=== PATIENT | female | born 1945 | race Caucasian/White ===

== ENCOUNTER 2018-05-12 08:56 | Emergency (ER) | payer MEDICARE, OTHER, SELFPAY ==
[2018-05-12 08:56] VITALS: BP 154/120; PULSE 92; RESP 24; TEMP 36.6; O2SAT 97; BMI 34.1
--- NOTE | 2018-05-12 09:05 | NURSING ---
NO LW OR POA
--- NOTE | 2018-05-12 09:15 | CT_ITS ---
STUDY: CT ABDOMEN AND PELVIS WITHOUT CONTRAST REASON FOR EXAM: Female, 72 years old. Constipation. RADIATION DOSAGE (If Supplied By Facility): CTDIvol = ( 21.18 ) mGy, DLP = ( 909.84 ) mGycm TECHNIQUE: Transaxial images were obtained from the dome of the diaphragm to the symphysis pubis without oral contrast, and without intravenous contrast. Sagittal and coronal images were reconstructed. Individualized dose optimization techniques were used for this CT. COMPARISON: None. FINDINGS: There are chronic interstitial fibrotic changes of the lung bases. The visualized portions of the heart are within normal limits. Normal liver. Normal gallbladder and extrahepatic biliary system. Normal spleen. Normal pancreas. Normal bilateral adrenal glands. There are cysts in the kidneys with lobulated contour. There is no hydronephrosis.. Normal visualized stomach. Normal small intestine. Normal colon. There is moderately abundant stool. There is non-visualization of the appendix. There is diffuse atherosclerotic calcification of the abdominal aorta, without a demonstrated aneurysm. Normal inferior vena cava. Normal retroperitoneum. Normal urinary bladder. There is absence of the uterus consistent with a prior hysterectomy. There is no free fluid in the abdomen or pelvis. There is a moderate umbilical hernia containing fat with induration and edema, series 2 images 100/153 through 106/153. Degenerative change of the spine. CT/Abdomen/Pelvis without Cont IMPRESSION: Moderately abundant stool. No obstruction. Periumbilical hernia with edema. Electronically Signed: Colin Jon MD at 10:14 EDT , Service support ,
[2018-05-12] MEDS: LORazepam 1 MG Tablet PO (09:37)
--- NOTE | 2018-05-12 09:41 | ED.DCSUM_ITS ---
- ER Visit Summary Date of Service: 05/12/18 Chief Complaint: Abdominal pain and constipation History of Present Illness: The patient is a 72 F who states that for the past 2 weeks she has been constipated. She was getting some thin pencil like stools. She was starting some stool softeners. This was not very effective. She talked to her doctor recommended that she take some MiraLAX and she stated that today she had several small hard balls of stool. She states that she has had fecal impaction in the past but does not have that same sensation today. She denies any oncoparesis. She states she is passing gas. States she had been eating and drinking fine up until yesterday when she just felt nauseous and was not able to eat much beyond for green beans. Is a history of an appendectomy and a vaginal hysterectomy. She states her last colonoscopy was years ago. Physical Examination: Afebrile vital signs are stable Gen: Well-nourished well-developed Head: Normocephalic atraumatic Eyes: Perrl EOMI ENT: TMs clear no rhinorrhea moist mucous membranes Neck: Supple no lymphadenopathy no JVD nontender CVS: Regular rate rhythm no murmurs normal S1-S2 Respiratory: Patient is tachypneic and is wearing 3 L nasal cannula and she states her breathing is at her baseline. Clear to auscultation bilaterally chest nontender Abdomen: Soft nontender mildly distended without tympany normal bowel sounds no masses Back: Nontender Extremity: Nontender no edema Skin: Normal color no rash Neuro: alert orientated ?3 CN II-XII intact normal strength sensation reflexes gait cerebellar Psych: Normal affect normal mood Test Results: CT demonstrated moderate amount of stool. There is no obvious obstruction. Emergency Department Course and Treatment: Patient was started on magnesium citrate. She wants to start using Metamucil but is unsure of the directions. Patient to follow-up with primary care doctor return if worsening or concerns. I will also write for Zofran for nausea. Impression: 1. Constipation This note was generated with [employer] dictation software. It may contain incorrect words, spelling, and punctuation that were not noted in review of the chart prior to signing ED Disposition - Plan for ED Patient: Disposition: Home or Assisted Living Chief Complaint: Constipation Instructions: ED Constipation Prescriptions: Ondansetron [Zofran Odt] 4 mg PO Q8H PRN PRN #14 tab PRN Reason: Nausea Magnesium Citrate [Citrate Of Magnesia] 300 ml PO TID #3 bottle Referrals: Mandi Canales MD [Primary Care Provider] - 1 Week Additional Instructions: For your Metamucil start at 3 caps a day then increase up to 5 caps a day after 1 week.
[2018-05-12 10:46] VITALS: BP 148/88; PULSE 86; RESP 18; O2SAT 96
== END 2018-05-12 10:47 | disposition home or self-care (01) ==
PROVIDERS: Emergency Provider Emergency Medicine; Family Provider Internal Medicine; PCP Internal Medicine
DX: K59.00 Constipation, unspecified (principal); E66.9 Obesity, unspecified; F41.1 Generalized anxiety disorder; E78.00 Pure hypercholesterolemia, unspecified; I11.0 Hypertensive heart disease with heart failure; I50.9 Heart failure, unspecified; I73.9 Peripheral vascular disease, unspecified; J44.9 Chronic obstructive pulmonary disease, unspecified; Z68.34 Body mass index [BMI] 34.0-34.9, adult; Z87.891 Personal history of nicotine dependence; Z86.73 Personal history of transient ischemic attack (TIA), and cerebral infarction without residual deficits; Z79.82 Long term (current) use of aspirin; Z79.899 Other long term (current) drug therapy
CPT/HCPCS: 74176; 99282

== ENCOUNTER 2018-10-24 07:25 | Outpatient (RCR) | payer SELFPAY | END 2018-11-21 23:59 | LOC: PR 07:25 | PROVIDERS: Family Provider Internal Medicine; PCP Internal Medicine; Referring Provider Internal Medicine Critical Care Medicine; Visit Provider Internal Medicine Critical Care Medicine | DX: Z00.00 Encounter for general adult medical examination without abnormal findings (principal) ==

== ENCOUNTER 2019-07-01 06:22 | Outpatient (RCR) | payer SELFPAY | END 2019-07-21 23:59 | LOC: PR 06:22 | PROVIDERS: Family Provider Internal Medicine; PCP Internal Medicine; Referring Provider Internal Medicine Critical Care Medicine; Visit Provider Internal Medicine Critical Care Medicine | DX: Z00.00 Encounter for general adult medical examination without abnormal findings (principal) ==

== ENCOUNTER 2019-09-24 09:38 | Emergency (ER) | payer MEDICARE, OTHER, SELFPAY ==
[2019-09-24 09:39] VITALS: BP 199/72; PULSE 115; RESP 25; TEMP 37.2; O2SAT 92; BMI 34.5
[2019-09-24 09:58] VITALS: BP 193/52; RESP 193
--- NOTE | 2019-09-24 10:02 | CT_ITS ---
STUDY: CT CHEST WITHOUT CONTRAST REASON FOR EXAM: Female, 74 years old. Cough following swallowing of a foreign body. RADIATION DOSAGE (If Supplied By Facility): CTDIvol = ( 14.49 ) mGy, DLP = ( 601.29 ) mGycm TECHNIQUE: Transaxial imaging was performed without the administration of intravenous contrast material. Multiplanar coronal and sagittal images were reformatted. Individualized dose optimization techniques were used for this CT. COMPARISON: None. FINDINGS: Emphysematous changes. Linear calcific scarring in the right upper lobe. This extends into the medial pleural surface in the right upper lobe. Lingular scarring. There is a noncalcified pleural-based nodule in the posterior medial segment of the left lower lobe as seen on axial image 87. This measures 7.2 mm. There is no demonstrated pleural abnormality. There are calcifications of the coronary arteries. There are multiple small lymph nodes within the mediastinum, which are normal in size and morphology most compatible with reactive lymph hyperplasia. Normal hilar regions. Normal unenhanced pulmonary arteries. There is atherosclerotic calcification of the aortic arch with tortuosity and elongation of the aortic arch and descending thoracic aorta. There are multi-level degenerative changes of the thoracic spine. Left renal cyst. CT/Chest without Contrast IMPRESSION: Fibrocalcific scarring in the right upper lobe with emphysematous changes. 7.2 mm noncalcified pleural based nodule in the left lower lobe. Electronically Signed: Osvaldo Frank, at 10:55 EST , Service support ,
--- NOTE | 2019-09-24 10:04 | ED.VIS.GEN ---
History of Present Illness Chief Complaint: Foreign Body Informant: Patient Onset: Days - 3 days Current Severity: Mild Maximum Severity: Mild Narrative: Patient presents 2 days after she believes she got a pickle stuck in her throat. She states that she was chewing up a Gerkin pickle when she excellently swallowed. She feels like a large piece of it is stuck in her lower throat. She states she has been able to drink fluids and take her pills. She called her primary care office yesterday who encouraged her to follow-up with surgery. She called Dr. Martin's office and was told to come to the emergency room but did not present until this morning. She is been able to sleep without difficulty. - Past Medical History (1) Benign hypertension Status: Chronic (2) CHF (congestive heart failure) Status: Chronic (3) COPD (chronic obstructive pulmonary disease) Status: Chronic (4) Chronic respiratory failure Status: Chronic (5) Hx TIA/stroke w/o resid Status: Chronic (6) Hyperlipidemia Status: Chronic (7) Peripheral vascular disease Status: Chronic Past Medical History - Allergies and Home Meds Allergies/Adverse Reactions: Allergies albuterol Allergy (Verified 09/24/19 09:38) Shortness of breath belladonna alkaloids [Belladonna Alkaloids] Allergy (Verified 09/24/19 09:38) Unknown lisinopril Allergy (Verified 09/24/19 09:38) Unknown phenobarbital Allergy (Verified 09/24/19 09:38) Unknown doxazosin mesylate [From Cardura] Adverse Reaction (Verified 09/24/19 09:38) Other Primary Care Physician: Mandi Canales MD [Primary Care Provider] - Prior records reviewed: Yes Surgical History: noncontributory - As noted above, - - Patient is undergone lung volume reduction surgery in 2011. She has had breast biopsies in the past for benign disease. She is also undergone appendectomy. The patient is a AB 4. Lives: Spouse/ Significant Other Smoking Status: Former smoker - Family History Maternal Family History: Reports: - - The patient's father at the age of 70 with a history of chronic obstructive pulmonary disease. Patient's mother at the age of 70 with a history of chronic obstructive pulmonary disease. Review of Systems General: Denies: Chills, Fever Eyes: Denies: Visual changes - bilaterally ENT: Reports: - - Foreign body sensation in throat. Denies: Bilateral ear pain Cardiovascular: Denies: Chest pain Respiratory: Reports: Dyspnea, Cough Gastrointestinal: Denies: Abdominal pain, Nausea, Vomiting, Diarrhea Skin: Denies: Rash Neurological: Denies: Headache Hematologic: Denies: Easy bruising Allergy: Denies: Uticaria Physical Exam Vital Signs/Narrative: Vital Signs Temp Pulse Resp BP Pulse Ox 09/24/19 09:58 193 H 193/52 H 09/24/19 09:39 99.0 F 115 H 25 H 199/72 H 92 Inital Vital Signs reviewed: Yes General: Well nourished, Well developed, - - Patient sitting upright in bed no acute distress. She is tolerating secretions well and speaking in full sentences. Head: Normocephalic Eyes: Perrl, EOMI ENT: Moist mucous membranes Neck: Supple Cardiovascular: Regular rate, Regular rhythm Respiratory: No distress, CTA bilaterally Abdomen: Soft, Nontender Extremities: Nontender Skin: Normal color Neurological: Alert, Oriented x3 Psychological: Normal affect Diagnostic/Tx/Re-eval Impressions Chest CT 09/24/19 10:02 IMPRESSION: Fibrocalcific scarring in the right upper lobe with emphysematous changes. 7.2 mm noncalcified pleural based nodule in the left lower lobe. Electronically Signed: Osvaldo Frank, at 10:55 EST , Service support , Barium Swallow X-Ray 09/24/19 12:17 IMPRESSION: Normal plain film x-ray examination (barium swallow) of the esophagus. Electronically Signed: Osvaldo Frank, at 13:32 EST , Service support , 09/24/19 10:02 CT Chest [Chest without Contrast] [CT] Stat 09/24/19 12:17 Barium Swallow no Video [Esophagus Only] [RAD] Stat - Medical Decision Making CT scan of the chest was initially done and did not show any evidence of foreign body. Patient was given a GI cocktail, but after talking with her she states that she still felt there was something caught in her throat. Patient had seen Dr. Newman in the past. I spoke with Dr. Franklin, on-call for him. He asked that we see if we get a barium swallow. This was performed does not show any evidence of foreign body. I explained to the patient I think she either likely has a scratch or has swelling from local pressure when foreign body was there, but there is no evidence of a current foreign body. Patient will use a soft diet and return for any worsening symptoms. ED Disposition - Plan for ED Patient: Disposition: Home or Assisted Living Diagnosis: Pharyngitis, Foreign body sensation in throat Instructions: SWALLOWED FOREIGN BODY (Adult) Referrals: Mandi Canales MD [Primary Care Provider] - 1 Week
[2019-09-24] MEDS: Mag Hydrox/Al Hydrox/Simeth 30 ML UDC PO (11:27)
[2019-09-24 11:38] VITALS: BP 170/65; PULSE 82; RESP 16; O2SAT 96
--- NOTE | 2019-09-24 12:17 | RAD_ITS ---
STUDY: X-RAY - ESOPHAGUS (BARIUM SWALLOW) WITH FLUOROSCOPY REASON FOR EXAM: Female, 74 years old. Possible foreign body. TECHNIQUE: 13 view(s) of the esophagus were obtained following swallowing of barium. FLUOROSCOPY TIME (if supplied): (0:33) minutes/seconds COMPARISON: None. FINDINGS: There is no demonstrated esophageal foreign body. There is no demonstrated stricture or mucosal abnormality. Normal gastroesophageal junction, without a demonstrated hiatal hernia. Normal visualized aortic arch and descending thoracic aorta. Normal visualized pulmonary parenchyma. Normal visualized osseous structures of the thorax. RAD/Esophagus Only IMPRESSION: Normal plain film x-ray examination (barium swallow) of the esophagus. Electronically Signed: Osvaldo Frank, at 13:32 EST , Service support ,
== END 2019-09-24 13:48 | disposition home or self-care (01) ==
PROVIDERS: Emergency Provider Emergency Medicine; Family Provider Internal Medicine; PCP Internal Medicine
DX: J02.9 Acute pharyngitis, unspecified (principal); R09.89 Other specified symptoms and signs involving the circulatory and respiratory systems; I11.0 Hypertensive heart disease with heart failure; I50.9 Heart failure, unspecified; J44.9 Chronic obstructive pulmonary disease, unspecified; E78.5 Hyperlipidemia, unspecified; I73.9 Peripheral vascular disease, unspecified; Z79.82 Long term (current) use of aspirin; Z79.899 Other long term (current) drug therapy; Z87.891 Personal history of nicotine dependence; Z86.73 Personal history of transient ischemic attack (TIA), and cerebral infarction without residual deficits
CPT/HCPCS: 71250; 74220; 99283; A4216

== ENCOUNTER 2019-11-20 14:33 | Outpatient (RCR) | payer MEDICARE, OTHER, SELFPAY ==
[2019-11-20 14:47] VITALS: BP 157/70; PULSE 83; RESP 18; TEMP 36.3; BMI 33.6
--- NOTE | 2019-11-20 17:01 | PCM.WC.HP ---
(1) Nonhealing ulcer of right lower extremity with fat layer exposed Status: Acute Current Visit: Yes Code(s): L97.912 - Non-pressure chronic ulcer of unspecified part of right lower leg with fat layer exposed (2) Benign hypertension Status: Chronic Current Visit: No Code(s): I10 - Essential (primary) hypertension (3) CHF (congestive heart failure) Status: Chronic Current Visit: No Code(s): I50.9 - Heart failure, unspecified (4) COPD (chronic obstructive pulmonary disease) Status: Chronic Current Visit: No Code(s): J44.9 - Chronic obstructive pulmonary disease, unspecified (5) Chronic respiratory failure Status: Chronic Current Visit: No Code(s): J96.10 - Chronic respiratory failure, unspecified whether with hypoxia or hypercapnia (6) Delayed wound healing Status: Chronic Current Visit: Yes Code(s): T14.8XXD - Other injury of unspecified body region, subsequent encounter (7) Edema leg Status: Chronic Current Visit: Yes Code(s): R60.0 - Localized edema (8) History of smoking Status: Chronic Current Visit: No Code(s): Z87.891 - Personal history of nicotine dependence (9) Hyperlipidemia Status: Chronic Current Visit: No Code(s): E78.5 - Hyperlipidemia, unspecified (10) Hypertension Status: Chronic Current Visit: No Qualifiers: Code(s): I10 - Essential (primary) hypertension (11) Peripheral vascular disease Status: Chronic Current Visit: Yes Code(s): I73.9 - Peripheral vascular disease, unspecified (12) Steroid dependent Status: Chronic Current Visit: Yes Code(s): DBQ7286 - (13) Venous insufficiency Status: Chronic Current Visit: Yes History of Present Illness Date of Service: 11/20/19 Chief Complaint: ulcer to the right lower extremity x 4 weeks History of Wound: This is a 74-year-old white female who presents to the wound healing center today with delayed wound healing from a nonhealing ulceration to her right lower extremity which initially occurred due to a scratch from her dog. She has a past medical history significant for COPD, supplemental oxygenation, PVD, hypertension, hyperlipidemia, CHF, and prior tobacco abuse. She states that her wound initially occurred 4 weeks ago and that she has been utilizing hydrogel and covering with gauze. She does wear compression stockings as she has a history of PVD. She is also on long-term steroid use for her COPD. Denies any signs of infection at this time. Denies any other treatments and denies any other aggravating relieving factors. All other systems reviewed and negative with exception of those listed above. Past Medical History Past Medical History: Chronic Problems Venous insufficiency (Chronic) Delayed wound healing (Chronic) History of smoking (Chronic) Chronic respiratory failure (Chronic) Obesity (Chronic) COPD (chronic obstructive pulmonary disease) (Chronic) Steroid dependent (Chronic) Leg swelling (Chronic) Hyperlipidemia (Chronic) Hypertension (Chronic) CHF (congestive heart failure) (Chronic) Hx TIA/stroke w/o resid (Chronic) Edema leg (Chronic) Leg edema, left (Chronic) Peripheral vascular disease (Chronic) Benign hypertension (Chronic) Surgical History: noncontributory - As noted above, - - Patient is undergone lung volume reduction surgery in 2011. She has had breast biopsies in the past for benign disease. She is also undergone appendectomy. The patient is a AB 4. Allergies/Adverse Reactions: Allergies albuterol Allergy (Verified 09/24/19 09:38) Shortness of breath belladonna alkaloids [Belladonna Alkaloids] Allergy (Verified 09/24/19 09:38) Unknown lisinopril Allergy (Verified 09/24/19 09:38) Unknown phenobarbital Allergy (Verified 09/24/19 09:38) Unknown doxazosin mesylate [From Cardura] Adverse Reaction (Verified 09/24/19 09:38) Other Home Medications: Ambulatory Orders Medication Instructions Recorded Furosemide [Lasix] 80 mg PO DAILY 07/22/13 Multivit-Min/FA/Lycopene/Lut 1 each PO DAILY 07/22/13 [Centrum Silver Tablet] Prednisone [PredniSONE] 5 mg PO DAILY 07/22/13 Verapamil HCl [Calan Sr] 120 mg PO Q12 07/22/13 Potassium Chloride [K-Dur] 20 meq PO DAILY 07/24/13 Clonidine HCl [Catapres] 0.2 mg PO Q8H 02/25/14 Levalbuterol Tartrate [Xopenex Hfa 1 puff INHALATION 4X/DAY PRN PRN 02/25/14 Inhaler] Tiotropium Lithonia [Spiriva 18 MCG] 1 puff INHALATION DAILY 02/25/14 Budesonide/Formoterol 80-4.5 2 puff INHALATION BID 03/11/17 [Symbicort 80-4.5 Mcg Inhaler] Cholecalciferol (Vitamin D3) 2,000 unit PO DAILY 09/24/19 [Vitamin D3] Guaifenesin [Mucinex] 600 mg PO BID 09/24/19 Spironolactone 25 mg PO DAILY 11/20/19 - Family History Maternal - - The patient's father at the age of 70 with a history of chronic obstructive pulmonary disease. Patient's mother at the age of 70 with a history of chronic obstructive pulmonary disease. Smoking Status: Former smoker Review of Systems Constitutional: Denies: Chills, Fever, Weight Change Eyes: Denies: Pain, Vision Change HEENT: Denies: Difficulty Hearing, Difficulty Swallowing, Sinus Congestion Cardiovascular: Denies: Chest Pain, Palpitations Respiratory: Denies: Cough, Shortness of Breath Gastrointestinal: Denies: Diarrhea, Nausea, Vomiting Genitourinary: Denies: Dysuria, Hematuria Skin: Reports: Wounds - See HPI Endocrine: Denies: Heat/ Cold Intolerance, Polydipsia, Polyuria Hematologic/ Lymphatic: Denies: Easy Bruising, Easy Bleeding - Physical Exam Vital Signs Temp Pulse Resp BP 97.3 F L 83 18 157/70 H 11/20/19 14:47 11/20/19 14:47 11/20/19 14:47 11/20/19 14:47 General: Alert, Oriented x3, Cooperative, No apparent distress HEENT: Atraumatic Oral: Moist Mucosa Neck: Supple Lungs: Clear to auscultation, Normal air movement, No rhonchi, No wheeze, No rales, Diminished Cardiovascular: Regular rate, Regular Rhythm, Normal S1, Normal S2, No murmurs Abdomen: Soft, Non Tender Extremities: No clubbing, No cyanosis, Edema - +2 generalized nonpitting bilateral lower extremity edema, Peripheral Pulses Normal Skin: Ulcer/ Wound - Nonhealing ulcer to right lower extremity with adherent slough, no signs of obvious infection at this time Wound Measurements and Assessment WC - Nurse 1 - General Ulcer Measurement Start: 11/20/19 14:47 Freq: Status: Active Protocol: Activity Type Activity Date Activity User E-Sign Co-Sign Detail Recorded Client Recorded Date Recorded By Document 11/20/19 14:47 [id number] 11/20/19 14:55 11/20/19 14:47 Wound Center Nurse 1 [Ulcer Assessment] 4-right saunders -Combined with other wound No -Current Size (cm) - Length 0.3 -Current Size (cm) - Width 2.8 -Current Size (cm) - Depth 0.2 -Total Square Cm 0.84 -Photo Taken Yes -Epithelialization Large 67-100% -Tunneling No -Undermining/Tunneling No -Circular Undermining No -Classification - Thickness Full Thickness without Exposed Support Structure -Exudate Amt None Present -Wound Margin Flat & Intact -Granulation Amt None Present (0 %) -Slough/Fibrin Yes -Necrosis Amt Large (67-100%) -Necrotic Tissue Type Adherent Slough -Structure Exposed N/A -Texture (Tatiana-wound Skin Appearance) Assessed, Localized Edema -Moisture (Tatiana-wound Skin Appearance Assessed,Dry/ ) Scaly -Color (Tatiana-wound Skin Appearance) Assessed -Temperature (Tatiana-wound Skin No Abnormality Appearance) (Pt Warm) -Tenderness on Palpation (Tatiana-wound No Skin Appearance) -Ulcer Cleansing Rinsed/ Irrigated with Saline -Foul Odor after Cleansing No -Anesthetic Used 4% Lidocaine Solution [Edema Assessment] -Lower Limb Edema Present Yes -Right Calf (cm) 39 -Right Ankle (cm) 26.6 -Left Calf (cm) 39.5 -Left Ankle (cm) 29.0 - Nurse 2 - General Ulcer CM Notes Start: 11/20/19 14:47 Freq: Status: Active Protocol: Activity Type Activity Date Activity User E-Sign Co-Sign Detail Recorded Client Recorded Date Recorded By Document 11/20/19 15:17 [id number] 11/20/19 15:23 MW 11/20/19 15:17 Wound Center Nurse 2 [Procedure/Treatment] 4-right saunders -Time 15:18 -Correct Patient Yes -Correct Side, Site, Position Yes -Correct Procedure Yes -Procedure Performed Yes -Type of Procedure Debridement -Clinical Debridement Subcutaneous -Post Debridement Size (cm) - Length 0.5 -Post Debridement Size (cm) - Width 3.4 -Post Debridement Size (cm) - Depth 0.2 -Total Square Cm 1.70 -Wound/Ulcer Outcome Not Healed -Ulcer Cleansing Rinsed/ Irrigated with Saline -Foul Odor after Cleansing No -Bioengineered Tissue No -Bleeding Controlled with Pressure -Offloading No -Treatment Response Procedure Tolerated Well [See Physician Procedure note for Specifics] Pain Scale: 0-10 Numeric [Pain] -Is Patient Pain Free? Yes Neurological: Neuro grossly intact Psych/Mental Status: Normal Affect, Appropriate, Alert and oriented to time, place, person, mood and affect Debridement Note Post-Debridement Measurements/Treatment WC - Nurse 2 - General Ulcer CM Notes Start: 11/20/19 14:47 Freq: Status: Active Protocol: Activity Type Activity Date Activity User E-Sign Co-Sign Detail Recorded Client Recorded Date Recorded By Document 11/20/19 15:17 MW [id number] 11/20/19 15:23 MW 11/20/19 15:17 Wound Center Nurse 2 4-right saunders -Time 15:18 -Correct Patient Yes -Correct Side, Site, Position Yes -Correct Procedure Yes -Procedure Performed Yes -Type of Procedure Debridement -Clinical Debridement Subcutaneous -Post Debridement Size (cm) - Length 0.5 -Post Debridement Size (cm) - Width 3.4 -Post Debridement Size (cm) - Depth 0.2 -Total Square Cm 1.70 -Wound/Ulcer Outcome Not Healed -Ulcer Cleansing Rinsed/ Irrigated with Saline -Foul Odor after Cleansing No -Bioengineered Tissue No -Bleeding Controlled with Pressure -Offloading No -Treatment Response Procedure Tolerated Well Pain Scale: 0-10 Numeric Is Patient Pain Free? Yes Wound debrided: Venous leg ulcer right lower extremity Laterality: Right Type of Debridement: Excisional debridement Anesthesia Used: 5% Lidocaine Gel Depth: in the subcutaneous layer Percentage of wound debrided: 100 Instrument Used: 7mm curette Tissue Removed: Slough and devitalized tissue Severity: Fat Layer Exposed Amount of bleeding with debridement: Mild Bleeding Controlled with: Pressure Patient tolerated procedure well Assessment/Plan Active Problems Nonhealing ulcer of right lower extremity with fat layer exposed (Acute) Venous insufficiency (Chronic) Delayed wound healing (Chronic) Steroid dependent (Chronic) Edema leg (Chronic) Peripheral vascular disease (Chronic) Assessment: See above diagnoses, venous leg ulcer right lower extremity secondary to trauma Plan: The patient was seen and examined at the wound center today and was updated on the plan of care. A subcutaneous debridement was performed today. The patient tolerated the procedure well. The patients wound care will consist of: Application of silver cell change daily. Given the delayed wound healing in fact that she has failed standard wound care greater than 4 weeks will apply for an advanced skin substitute.. Wound cultures were held. Baseline bloodwork held. Vascular studies reviewed from 2017 and demonstrated venous insufficiency and normal arterials. Patient educated on the importance of diet on wound healing and instructed to increase protein and vitamin C intake. Patient verbalized understanding. Patient has been advised to elevate lower extremities as much as possible. Elevation is to be implemented during daytime hours and legs are to be elevated to heart level, or higher, as much as possible. Prolonged idle sitting has been discouraged. Activity and ambulation has been encouraged. Patient will follow up at wound healing center in one week or sooner if needed. This note was generated with [employer] dictation software. It may contain incorrect words, spelling, and punctuation that were not noted in checking the note before signing. Code Visit Office Visits / Consults: [id number] OV L4 New [id number]: [id number] Wilma subq tissue 20 sq cm/<
== END 2019-11-21 23:59 ==
LOC: WC 14:33
PROVIDERS: PCP Internal Medicine; Visit Provider Nurse Practitioner Family
DX: I73.9 Peripheral vascular disease, unspecified (principal); I87.2 Venous insufficiency (chronic) (peripheral); E78.5 Hyperlipidemia, unspecified; J44.9 Chronic obstructive pulmonary disease, unspecified; I11.0 Hypertensive heart disease with heart failure; I50.9 Heart failure, unspecified; L97.812 Non-pressure chronic ulcer of other part of right lower leg with fat layer exposed; J96.10 Chronic respiratory failure, unspecified whether with hypoxia or hypercapnia; R60.0 Localized edema; Z87.891 Personal history of nicotine dependence; Z79.52 Long term (current) use of systemic steroids; Z79.899 Other long term (current) drug therapy
CPT/HCPCS: 11042; 99213; G0463

== ENCOUNTER 2019-12-11 16:00 | Outpatient (RCR) | payer MEDICARE, OTHER, SELFPAY ==
[2019-11-22 01:18] VITALS: BP 157/70; PULSE 83; RESP 18; TEMP 36.3
[2019-11-27 15:10] VITALS: BP 160/114; PULSE 99; RESP 22; TEMP 36.2; BMI 33.6
--- NOTE | 2019-11-27 17:52 | PCM.WC.PN ---
(1) Nonhealing ulcer of right lower extremity with fat layer exposed Status: Acute Current Visit: Yes Code(s): L97.912 - Non-pressure chronic ulcer of unspecified part of right lower leg with fat layer exposed (2) Benign hypertension Status: Chronic Current Visit: No Code(s): I10 - Essential (primary) hypertension (3) CHF (congestive heart failure) Status: Chronic Current Visit: No Code(s): I50.9 - Heart failure, unspecified (4) COPD (chronic obstructive pulmonary disease) Status: Chronic Current Visit: No Code(s): J44.9 - Chronic obstructive pulmonary disease, unspecified (5) Chronic respiratory failure Status: Chronic Current Visit: No Code(s): J96.10 - Chronic respiratory failure, unspecified whether with hypoxia or hypercapnia (6) Delayed wound healing Status: Chronic Current Visit: No Code(s): T14.8XXD - Other injury of unspecified body region, subsequent encounter (7) Edema leg Status: Chronic Current Visit: No Code(s): R60.0 - Localized edema (8) History of smoking Status: Chronic Current Visit: No Code(s): Z87.891 - Personal history of nicotine dependence (9) Peripheral vascular disease Status: Chronic Current Visit: No Code(s): I73.9 - Peripheral vascular disease, unspecified (10) Steroid dependent Status: Chronic Current Visit: No Code(s): [id number] - (11) Venous insufficiency Status: Chronic Current Visit: No Type of Wound Date of Service: 11/27/19 Chief Complaint: ulcer to the right lower extremity x 4 weeks History of Wound: This is a 74-year-old white female who presents to the wound healing center today with delayed wound healing from a nonhealing ulceration to her right lower extremity which initially occurred due to a scratch from her dog. She has a past medical history significant for COPD, supplemental oxygenation, PVD, hypertension, hyperlipidemia, CHF, and prior tobacco abuse. She states that her wound initially occurred 4 weeks ago and that she has been utilizing hydrogel and covering with gauze. She does wear compression stockings as she has a history of PVD. She is also on long-term steroid use for her COPD. Denies any signs of infection at this time. Denies any other treatments and denies any other aggravating relieving factors. All other systems reviewed and negative with exception of those listed above. Progress of Wound: Significant improvement in 1 week, no new concerns. - Physical Exam Vital Signs Temp Pulse Resp BP 97.1 F L 99 22 H 160/114 H 11/27/19 15:10 11/27/19 15:10 11/27/19 15:10 11/27/19 15:10 General: Alert, Oriented x3, Cooperative, No apparent distress HEENT: Atraumatic Oral: Moist Mucosa Neck: Supple Lungs: Clear to auscultation Cardiovascular: Regular rate Abdomen: Soft Extremities: No clubbing, No cyanosis, Edema - 2+ pitting bilateral lower extremity edema Skin: Ulcer/ Wound - See nursing documentation, slough and devitalized tissue present, no signs of obvious infection at this time. Wound Measurements and Assessment WC - Nurse 1 - General Ulcer Measurement Start: 11/27/19 15:07 Freq: Status: Active Protocol: Activity Type Activity Date Activity User E-Sign Co-Sign Detail Recorded Client Recorded Date Recorded By Document 11/27/19 15:10 [facility] [id number] 11/27/19 15:15 [facility] 11/27/19 15:10 Wound Center Nurse 1 [Ulcer Assessment] 4-right saunders -Combined with other wound No -Current Size (cm) - Length 0.1 -Current Size (cm) - Width 2.8 -Current Size (cm) - Depth 0.1 -Total Square Cm 0.28 -Photo Taken No -Epithelialization None Present -Tunneling No -Undermining/Tunneling No -Circular Undermining No -Exudate Amt None Present -Granulation Amt None Present (0 %) -Slough/Fibrin Yes -Necrosis Amt Large (67-100%) -Necrotic Tissue Type Eschar -Texture (Tatiana-wound Skin Appearance) Assessed, Scarring -Moisture (Tatiana-wound Skin Appearance Assessed,Dry/ ) Scaly -Color (Tatiana-wound Skin Appearance) Assessed -Temperature (Tatiana-wound Skin No Abnormality Appearance) (Pt Warm) -Tenderness on Palpation (Tatiana-wound No Skin Appearance) -Ulcer Cleansing Rinsed/ Irrigated with Saline -Foul Odor after Cleansing No -Anesthetic Used 5% Lidocaine Gel [Edema Assessment] -Lower Limb Edema Present Yes -Right Calf (cm) 38.5 -Right Ankle (cm) 27.2 WC - Nurse 2 - General Ulcer CM Notes Start: 11/27/19 15:07 Freq: Status: Active Protocol: Activity Type Activity Date Activity User E-Sign Co-Sign Detail Recorded Client Recorded Date Recorded By Document 11/27/19 15:49 MW [id number] 11/27/19 15:50 MW 11/27/19 15:49 Wound Center Nurse 2 [Procedure/Treatment] 4-right saunders -Time 15:49 -Correct Patient Yes -Correct Side, Site, Position Yes -Correct Procedure Yes -Procedure Performed Yes -Type of Procedure Debridement -Clinical Debridement Subcutaneous -Post Debridement Size (cm) - Length 0.4 -Post Debridement Size (cm) - Width 3.0 -Post Debridement Size (cm) - Depth 0.2 -Total Square Cm 1.20 -Wound/Ulcer Outcome Not Healed -Ulcer Cleansing Rinsed/ Irrigated with Saline -Foul Odor after Cleansing No -Bioengineered Tissue No -Bleeding Controlled with Pressure -Offloading No -Treatment Response Procedure Tolerated Well [See Physician Procedure note for Specifics] Pain Scale: 0-10 Numeric [Pain] -Is Patient Pain Free? Yes Neurological: Neuro grossly intact Psych/Mental Status: Normal Affect, Appropriate, Alert and oriented to time, place, person, mood and affect Debridement Note Post-Debridement Measurements/Treatment WC - Nurse 2 - General Ulcer CM Notes Start: 11/27/19 15:07 Freq: Status: Active Protocol: Activity Type Activity Date Activity User E-Sign Co-Sign Detail Recorded Client Recorded Date Recorded By Document 11/27/19 15:49 MW [id number] 11/27/19 15:50 MW 11/27/19 15:49 Wound Center Nurse 2 4-right saunders -Time 15:49 -Correct Patient Yes -Correct Side, Site, Position Yes -Correct Procedure Yes -Procedure Performed Yes -Type of Procedure Debridement -Clinical Debridement Subcutaneous -Post Debridement Size (cm) - Length 0.4 -Post Debridement Size (cm) - Width 3.0 -Post Debridement Size (cm) - Depth 0.2 -Total Square Cm 1.20 -Wound/Ulcer Outcome Not Healed -Ulcer Cleansing Rinsed/ Irrigated with Saline -Foul Odor after Cleansing No -Bioengineered Tissue No -Bleeding Controlled with Pressure -Offloading No -Treatment Response Procedure Tolerated Well Pain Scale: 0-10 Numeric Is Patient Pain Free? Yes Wound debrided: Nonhealing ulcer right lower extremity status post traumatic abrasion Laterality: Right Type of Debridement: Excisional debridement Anesthesia Used: 5% Lidocaine Gel Depth: in the subcutaneous layer Percentage of wound debrided: 100 Instrument Used: 3mm curette Tissue Removed: Slough and devitalized tissue Severity: Fat Layer Exposed Amount of bleeding with debridement: Mild Bleeding Controlled with: Pressure Patient tolerated procedure well Assessment/Plan Active Problems Nonhealing ulcer of right lower extremity with fat layer exposed (Acute) Assessment: See above diagnoses, venous leg ulcer right lower extremity secondary to trauma Plan: The patient was seen and examined at the wound center today and was updated on the plan of care. A subcutaneous debridement was performed today. The patient tolerated the procedure well. The patients wound care will consist of: Application of promogran change daily. Given the delayed wound healing in fact that she has failed standard wound care greater than 4 weeks will apply for an advanced skin substitute.. Wound cultures were held. Baseline bloodwork held. Vascular studies reviewed from 2017 and demonstrated venous insufficiency and normal arterials. Patient educated on the importance of diet on wound healing and instructed to increase protein and vitamin C intake. Patient verbalized understanding. Patient has been advised to elevate lower extremities as much as possible. Elevation is to be implemented during daytime hours and legs are to be elevated to heart level, or higher, as much as possible. Prolonged idle sitting has been discouraged. Activity and ambulation has been encouraged. Patient will follow up at wound healing center in one week or sooner if needed. This note was generated with [employer] dictation software. It may contain incorrect words, spelling, and punctuation that were not noted in checking the note before signing. Code Visit 111xxx-113xx: 12321 [place] subq tissue 20 sq cm/<
[2019-12-04 15:45] VITALS: BP 177/66; PULSE 86; RESP 22; TEMP 36.3; BMI 33.6
--- NOTE | 2019-12-05 16:06 | PCM.WC.PN ---
(1) Nonhealing ulcer of right lower extremity with fat layer exposed Status: Acute Current Visit: Yes Code(s): L97.912 - Non-pressure chronic ulcer of unspecified part of right lower leg with fat layer exposed (2) Benign hypertension Status: Chronic Current Visit: No Code(s): I10 - Essential (primary) hypertension (3) CHF (congestive heart failure) Status: Chronic Current Visit: No Code(s): I50.9 - Heart failure, unspecified (4) COPD (chronic obstructive pulmonary disease) Status: Chronic Current Visit: No Code(s): J44.9 - Chronic obstructive pulmonary disease, unspecified (5) Chronic respiratory failure Status: Chronic Current Visit: No Code(s): J96.10 - Chronic respiratory failure, unspecified whether with hypoxia or hypercapnia (6) Delayed wound healing Status: Chronic Current Visit: No Code(s): T14.8XXD - Other injury of unspecified body region, subsequent encounter (7) Edema leg Status: Chronic Current Visit: No Code(s): R60.0 - Localized edema (8) History of smoking Status: Chronic Current Visit: No Code(s): Z87.891 - Personal history of nicotine dependence (9) Peripheral vascular disease Status: Chronic Current Visit: No Code(s): I73.9 - Peripheral vascular disease, unspecified (10) Steroid dependent Status: Chronic Current Visit: No Code(s): [id number] - (11) Venous insufficiency Status: Chronic Current Visit: No Type of Wound Date of Service: 12/04/19 Chief Complaint: ulcer to the right lower extremity x 4 weeks History of Wound: This is a 74-year-old white female who presents to the wound healing center today with delayed wound healing from a nonhealing ulceration to her right lower extremity which initially occurred due to a scratch from her dog. She has a past medical history significant for COPD, supplemental oxygenation, PVD, hypertension, hyperlipidemia, CHF, and prior tobacco abuse. She states that her wound initially occurred 4 weeks ago and that she has been utilizing hydrogel and covering with gauze. She does wear compression stockings as she has a history of PVD. She is also on long-term steroid use for her COPD. Denies any signs of infection at this time. Denies any other treatments and denies any other aggravating relieving factors. All other systems reviewed and negative with exception of those listed above. Progress of Wound: Significant improvement in 1 week, no new concerns. - Physical Exam Vital Signs Temp Pulse Resp BP 97.3 F L 86 22 H 177/66 H 12/04/19 15:45 12/04/19 15:45 12/04/19 15:45 12/04/19 15:45 General: Alert, Oriented x3, Cooperative, No apparent distress HEENT: Atraumatic Oral: Moist Mucosa Lungs: Clear to auscultation, Normal air movement Cardiovascular: Regular rate, Regular Rhythm Abdomen: Soft, Non Tender, Obese Extremities: No clubbing, No cyanosis, Edema - +2 pitting bilateral lower extremity edema Skin: Ulcer/ Wound - See nursing documentation, slough and devitalized tissue present, no signs of infection at this time. Wound Measurements and Assessment WC - Nurse 1 - General Ulcer Measurement Start: 11/27/19 15:07 Freq: Status: Active Protocol: Activity Type Activity Date Activity User E-Sign Co-Sign Detail Recorded Client Recorded Date Recorded By Document 12/04/19 15:45 [facility] [id number] 12/04/19 15:53 [facility] 12/04/19 15:45 Wound Center Nurse 1 [Ulcer Assessment] 4-right saunders -Combined with other wound No -Current Size (cm) - Length 0.2 -Current Size (cm) - Width 2.5 -Current Size (cm) - Depth 0.1 -Total Square Cm 0.50 -Photo Taken No -Epithelialization None Present -Tunneling No -Undermining/Tunneling No -Circular Undermining No -Exudate Amt None Present -Wound Margin Flat & Intact -Granulation Amt None Present (0 %) -Slough/Fibrin Yes -Necrosis Amt Large (67-100%) -Necrotic Tissue Type Adherent Slough -Texture (Tatiana-wound Skin Appearance) Assessed, Scarring -Moisture (Tatiana-wound Skin Appearance Assessed,Dry/ ) Scaly -Color (Tatiana-wound Skin Appearance) Assessed -Temperature (Tatiana-wound Skin No Abnormality Appearance) (Pt Warm) -Tenderness on Palpation (Tatiana-wound No Skin Appearance) -Ulcer Cleansing Rinsed/ Irrigated with Saline -Foul Odor after Cleansing No -Anesthetic Used 5% Lidocaine Gel [Edema Assessment] -Lower Limb Edema Present Yes -Right Calf (cm) 38.5 -Right Ankle (cm) 26.6 WC - Nurse 2 - General Ulcer CM Notes Start: 11/27/19 15:07 Freq: Status: Active Protocol: Activity Type Activity Date Activity User E-Sign Co-Sign Detail Recorded Client Recorded Date Recorded By Document 12/04/19 16:30 MW [id number] 12/04/19 16:32 MW 12/04/19 16:30 Wound Center Nurse 2 [Procedure/Treatment] 4-right saunders -Time 16:30 -Correct Patient Yes -Correct Side, Site, Position Yes -Correct Procedure Yes -Procedure Performed Yes -Type of Procedure Debridement -Clinical Debridement Subcutaneous -Post Debridement Size (cm) - Length 0.4 -Post Debridement Size (cm) - Width 1.2 -Post Debridement Size (cm) - Depth 0.1 -Total Square Cm 0.48 -Wound/Ulcer Outcome Not Healed -Ulcer Cleansing Rinsed/ Irrigated with Saline -Foul Odor after Cleansing No -Bioengineered Tissue No -Bleeding Controlled with Pressure -Offloading No -Treatment Response Procedure Tolerated Well [See Physician Procedure note for Specifics] Pain Scale: 0-10 Numeric [Pain] -Is Patient Pain Free? Yes Neurological: Neuro grossly intact Psych/Mental Status: Normal Affect, Appropriate, Alert and oriented to time, place, person, mood and affect Debridement Note Post-Debridement Measurements/Treatment - Nurse 2 - General Ulcer CM Notes Start: 11/27/19 15:07 Freq: Status: Active Protocol: Activity Type Activity Date Activity User E-Sign Co-Sign Detail Recorded Client Recorded Date Recorded By Document 11/27/19 15:49 MW [id number] 11/27/19 15:50 MW Document 12/04/19 16:30 MW [id number] 12/04/19 16:32 MW 11/27/19 12/04/19 15:49 16:30 Wound Center Nurse 2 4-right saunders -Time 15:49 16:30 -Correct Patient Yes Yes -Correct Side, Site, Position Yes Yes -Correct Procedure Yes Yes -Procedure Performed Yes Yes -Type of Procedure Debridement Debridement -Clinical Debridement Subcutaneous Subcutaneous -Post Debridement Size (cm) - Length 0.4 0.4 -Post Debridement Size (cm) - Width 3.0 1.2 -Post Debridement Size (cm) - Depth 0.2 0.1 -Total Square Cm 1.20 0.48 -Wound/Ulcer Outcome Not Healed Not Healed -Ulcer Cleansing Rinsed/ Rinsed/ Irrigated with Irrigated with Saline Saline -Foul Odor after Cleansing No No -Bioengineered Tissue No No -Bleeding Controlled with Pressure Pressure -Offloading No No -Treatment Response Procedure Procedure Tolerated Well Tolerated Well Pain Scale: 0-10 Numeric Is Patient Pain Free? Yes Yes Wound debrided: Right lower extremity nonhealing ulcer secondary to abrasion Laterality: Right Type of Debridement: Excisional debridement Anesthesia Used: 5% Lidocaine Gel Depth: in the subcutaneous layer Percentage of wound debrided: 100 Instrument Used: 3mm curette Tissue Removed: Slough and devitalized tissue Severity: Fat Layer Exposed Amount of bleeding with debridement: Mild Bleeding Controlled with: Pressure Patient tolerated procedure well Assessment/Plan Active Problems Nonhealing ulcer of right lower extremity with fat layer exposed (Acute) Assessment: See above diagnoses, venous leg ulcer right lower extremity secondary to trauma Plan: The patient was seen and examined at the wound center today and was updated on the plan of care. A subcutaneous debridement was performed today. The patient tolerated the procedure well. The patients wound care will consist of: Application of promogran change daily. Given the delayed wound healing in fact that she has failed standard wound care greater than 4 weeks will apply for an advanced skin substitute.. Wound cultures were held. Baseline bloodwork held. Vascular studies reviewed from 2017 and demonstrated venous insufficiency and normal arterials. Patient educated on the importance of diet on wound healing and instructed to increase protein and vitamin C intake. Patient verbalized understanding. Patient has been advised to elevate lower extremities as much as possible. Elevation is to be implemented during daytime hours and legs are to be elevated to heart level, or higher, as much as possible. Prolonged idle sitting has been discouraged. Activity and ambulation has been encouraged. Patient will follow up at wound healing center in one week or sooner if needed. This note was generated with [employer] dictation software. It may contain incorrect words, spelling, and punctuation that were not noted in checking the note before signing. Code Visit 111xxx-113xx: [id number] Wilma subq tissue 20 sq cm/<
[2019-12-11 16:31] VITALS: BP 152/72; PULSE 70; RESP 18; TEMP 36.6; BMI 33.6
--- NOTE | 2019-12-11 18:40 | PCM.WC.PN ---
(1) Nonhealing ulcer of right lower extremity with fat layer exposed Status: Acute Code(s): L97.912 - Non-pressure chronic ulcer of unspecified part of right lower leg with fat layer exposed (2) Benign hypertension Status: Chronic Code(s): I10 - Essential (primary) hypertension (3) CHF (congestive heart failure) Status: Chronic Code(s): I50.9 - Heart failure, unspecified (4) COPD (chronic obstructive pulmonary disease) Status: Chronic Code(s): J44.9 - Chronic obstructive pulmonary disease, unspecified (5) Chronic respiratory failure Status: Chronic Code(s): J96.10 - Chronic respiratory failure, unspecified whether with hypoxia or hypercapnia (6) Delayed wound healing Status: Chronic Code(s): T14.8XXD - Other injury of unspecified body region, subsequent encounter (7) Edema leg Status: Chronic Code(s): R60.0 - Localized edema (8) History of smoking Status: Chronic Code(s): Z87.891 - Personal history of nicotine dependence (9) Peripheral vascular disease Status: Chronic Code(s): I73.9 - Peripheral vascular disease, unspecified (10) Steroid dependent Status: Chronic Code(s): [id number] - (11) Venous insufficiency Status: Chronic Type of Wound Date of Service: 12/11/19 Chief Complaint: ulcer to the right lower extremity x 4 weeks History of Wound: This is a 74-year-old white female who presents to the wound healing center today with delayed wound healing from a nonhealing ulceration to her right lower extremity which initially occurred due to a scratch from her dog. She has a past medical history significant for COPD, supplemental oxygenation, PVD, hypertension, hyperlipidemia, CHF, and prior tobacco abuse. She states that her wound initially occurred 4 weeks ago and that she has been utilizing hydrogel and covering with gauze. She does wear compression stockings as she has a history of PVD. She is also on long-term steroid use for her COPD. Denies any signs of infection at this time. Denies any other treatments and denies any other aggravating relieving factors. All other systems reviewed and negative with exception of those listed above. Progress of Wound: Significant improvement in 1 week, no new concerns. - Physical Exam Vital Signs Temp Pulse Resp BP 98 F 70 18 152/72 H 12/11/19 16:31 12/11/19 16:31 12/11/19 16:31 12/11/19 16:31 General: Alert, Oriented x3, Cooperative, No apparent distress HEENT: Atraumatic Oral: Moist Mucosa Lungs: Clear to auscultation, Normal air movement Cardiovascular: Regular rate Abdomen: Soft, Non Tender Extremities: No clubbing, No cyanosis, Edema - 2+ generalized bilateral lower extremity edema Skin: Ulcer/ Wound - See nursing documentation, slough and devitalized tissue present, no signs of infection at this time Neurological: Neuro grossly intact Psych/Mental Status: Normal Affect, Appropriate, Alert and oriented to time, place, person, mood and affect Debridement Note Post-Debridement Measurements/Treatment WC - Nurse 2 - General Ulcer CM Notes Start: 11/27/19 15:07 Freq: Status: Active Protocol: Activity Type Activity Date Activity User E-Sign Co-Sign Detail Recorded Client Recorded Date Recorded By Document 11/27/19 15:49 MW [id number] 11/27/19 15:50 MW Document 12/04/19 16:30 MW [id number] 12/04/19 16:32 MW Document 12/11/19 16:36 MW [id number] 12/11/19 16:37 MW 11/27/19 12/04/19 12/11/19 15:49 16:30 16:36 Wound Center Nurse 2 4-right saunders -Time 15:49 16:30 16:36 -Correct Patient Yes Yes Yes -Correct Side, Site, Position Yes Yes Yes -Correct Procedure Yes Yes Yes -Procedure Performed Yes Yes Yes -Type of Procedure Debridement Debridement Debridement -Clinical Debridement Subcutaneous Subcutaneous Subcutaneous -Post Debridement Size (cm) - Length 0.4 0.4 0.5 -Post Debridement Size (cm) - Width 3.0 1.2 0.2 -Post Debridement Size (cm) - Depth 0.2 0.1 0.1 -Total Square Cm 1.20 0.48 0.10 -Wound/Ulcer Outcome Not Healed Not Healed Not Healed -Ulcer Cleansing Rinsed/ Rinsed/ Rinsed/ Irrigated with Irrigated with Irrigated with Saline Saline Saline -Foul Odor after Cleansing No No No -Bioengineered Tissue No No No -Bleeding Controlled with Pressure Pressure Pressure -Offloading No No No -Treatment Response Procedure Procedure Procedure Tolerated Well Tolerated Well Tolerated Well Pain Scale: 0-10 Numeric Is Patient Pain Free? Yes Yes Yes Wound debrided: Nonhealing ulcer right lower extremity Laterality: Right Type of Debridement: Excisional debridement Anesthesia Used: 5% Lidocaine Gel Depth: in the subcutaneous layer Percentage of wound debrided: 100 Instrument Used: 3mm curette Tissue Removed: Slough and devitalized tissue Severity: Fat Layer Exposed Amount of bleeding with debridement: Mild Bleeding Controlled with: Pressure Patient tolerated procedure well Assessment/Plan Assessment: See above diagnoses, venous leg ulcer right lower extremity secondary to trauma Plan: The patient was seen and examined at the wound center today and was updated on the plan of care. A subcutaneous debridement was performed today. The patient tolerated the procedure well. The patients wound care will consist of: Application of promogran change daily. Given the delayed wound healing in fact that she has failed standard wound care greater than 4 weeks will apply for an advanced skin substitute.. Wound cultures were held. Baseline bloodwork held. Vascular studies reviewed from 2017 and demonstrated venous insufficiency and normal arterials. Patient educated on the importance of diet on wound healing and instructed to increase protein and vitamin C intake. Patient verbalized understanding. Patient has been advised to elevate lower extremities as much as possible. Elevation is to be implemented during daytime hours and legs are to be elevated to heart level, or higher, as much as possible. Prolonged idle sitting has been discouraged. Activity and ambulation has been encouraged. Patient will follow up at wound healing center in one week or sooner if needed. This note was generated with [employer] dictation software. It may contain incorrect words, spelling, and punctuation that were not noted in checking the note before signing. Code Visit 111xxx-113xx: 79169 Wilma subq tissue 20 sq cm/<
== END 2019-12-20 23:59 ==
LOC: WC 16:00
PROVIDERS: PCP Internal Medicine; Visit Provider Nurse Practitioner Family
DX: I73.9 Peripheral vascular disease, unspecified (principal); I87.2 Venous insufficiency (chronic) (peripheral); J96.10 Chronic respiratory failure, unspecified whether with hypoxia or hypercapnia; I50.9 Heart failure, unspecified; J44.9 Chronic obstructive pulmonary disease, unspecified; I11.0 Hypertensive heart disease with heart failure; R60.0 Localized edema; Z87.891 Personal history of nicotine dependence; L97.812 Non-pressure chronic ulcer of other part of right lower leg with fat layer exposed; Z79.52 Long term (current) use of systemic steroids
CPT/HCPCS: 11042; 11045

== ENCOUNTER 2020-07-28 18:33 | Emergency (ER) | payer MEDICARE, OTHER, SELFPAY ==
[2020-07-28 18:34] VITALS: BP 189/175; PULSE 103; RESP 23; TEMP 36.5; O2SAT 98; BMI 34.0
--- NOTE | 2020-07-28 18:39 | ED.RN ---
CALLED FOR EKG PER RN REQUEST, PULLED OLD EKGS FOR
--- NOTE | 2020-07-28 18:51 | EKG12_ITS ---
Test Reason : REPEAT Blood Pressure : / mmHG Vent. Rate : 068 BPM Atrial Rate : 068 BPM P-R Int : 174 ms QRS Dur : 090 ms QT Int : 418 ms P-R-T Axes : 089 003 041 degrees QTc Int : 444 ms Normal sinus rhythm RSR' or QR pattern in V1 suggests right ventricular conduction delay Cannot rule out Inferior infarct , age undetermined Abnormal ECG Confirmed by MICK MERA, ANNA ([id number]), managing editor LADY MCLAUGHLIN ([id number]) on 08/03/2020 1:05:20 PM Referred By: JACINTO Confirmed By:ANNA BARTON MD
--- NOTE | 2020-07-28 18:53 | ED.DCSUM_ITS ---
History of Present Illness Chief Complaint: Chest Pain Informant: Patient, Family Onset: Days - 5 Narrative: Presents after discussing with PCP office for evaluation. Intermittent sharp chest pains for the past 5 days. States would come with certain movements right lower chest or left lower chest. Denies any dyspnea, denies any recent cough. No fevers. No nausea or vomiting. No diaphoresis. No radicular symptoms. History of COPD on chronic 3 L of oxygen. No cardiac history. Denies heart failure history. Does have history of peripheral edema on diuretics. No recent travel, surgeries, or immobilizations. No history of PE or DVT. Patient states she does take aspirin however did not take any today. Past Medical History - Allergies and Home Meds Allergies/Adverse Reactions: Allergies albuterol Allergy (Verified 07/28/20 18:34) Shortness of breath belladonna alkaloids [Belladonna Alkaloids] Allergy (Verified 07/28/20 18:34) Unknown lisinopril Allergy (Verified 07/28/20 18:34) Unknown phenobarbital Allergy (Verified 07/28/20 18:34) Unknown doxazosin mesylate [From Cardura] Adverse Reaction (Verified 07/28/20 18:34) Other Primary Care Physician: Mandi Canales MD [Primary Care Provider] - Past Medical History: - - COPD on chronic 3 L of oxygen, peripheral edema, hypertension, hyperlipidemia, TIA Surgical History: noncontributory - As noted above, - - Patient is undergone lung volume reduction surgery in 2011. She has had breast biopsies in the past for benign disease. She is also undergone appendectomy. The patient is a AB 4. Smoking Status: Former smoker - Family History Maternal Family History: Reports: - - The patient's father at the age of 70 with a history of chronic obstructive pulmonary disease. Patient's mother at the age of 70 with a history of chronic obstructive pulmonary disease. Review of Systems General: Denies: Chills, Fever, Sweats Eyes: Denies: Visual changes - bilaterally, Diplopia ENT: Denies: Rhinorrhea, Sore throat Cardiovascular: Reports: Chest pain. Denies: Palpitations Respiratory: Denies: Dyspnea, Cough, Dyspnea on exertion Gastrointestinal: Denies: Abdominal pain, Nausea, Vomiting, Diarrhea, Melena, Hematochezia Genitourinary: Denies: Dysuria, Hematuria, Frequency Musculoskeletal: Denies: Back pain, Extremity Pain Skin: Denies: Rash, Wounds Neurological: Denies: Headache, Weakness, Numbness Physical Exam Vital Signs/Narrative: Vital Signs Temp Pulse Resp BP Pulse Ox 07/28/20 18:34 97.7 F L 103 H 23 H 189/175 H 98 Inital Vital Signs reviewed: Yes General: Well nourished, Well developed, No Acute Distress, - - Stable on 3 L of oxygen. Head: Normocephalic, Atraumatic Eyes: Perrl, EOMI ENT: Moist mucous membranes, No rhinorrhea Neck: Supple, Nontender Cardiovascular: Regular rate, Regular rhythm, No murmurs, - - Heart rate 90 on exam. Respiratory: No distress, CTA bilaterally, Chest nontender Abdomen: Soft, Nontender, Nondistended, Normal bowel sounds Back: Nontender, Normal Inspection Extremities: Nontender, Edema, - - 1-2+ lower extremity edema. Skin: Normal color, No rash Neurological: Alert, Oriented x3, Cranial nerves II-XII grossly intact, Normal Strength, Normal Sensation Psychological: Normal affect, Normal Mood Diagnostic/Tx/Re-eval Clinical Impression(s) from Imaging Studies Chest X-Ray 07/28/20 19:00 IMPRESSION: Patchy airspace opacities in the lung bases which is likely infectious in etiology. Electronically Signed: Refugio Nation, at 19:14 EDT Tel , Service support , Chest CTA 07/28/20 20:15 IMPRESSION: Study limited by patient motion. No evidence of pulmonary embolus. No evidence of thoracic aortic aneurysm or dissection. Stable emphysema with stable scarring in the right lung. No pulmonary infiltrates or pleural effusions. Electronically Signed: Refugio Nation at 21:04 EDT Tel , Service support , Abnormal Lab Results 07/28/20 07/28/20 07/28/20 18:40 18:40 18:40 WBC 15.8 H RBC 5.07 Hgb 15.6 H Hct 48.1 H MCV 94.9 MCH 30.8 MCHC 32.4 RDW Std Deviation 43.3 RDW Coeff of Ashley 12.6 Plt Count 377 MPV 9.3 Immature Gran % (Auto) 0.300 Neut % (Auto) 71.5 H Lymph % (Auto) 18.3 L [place] % (Auto) 9.1 Eos % (Auto) 0.4 Baso % (Auto) 0.4 Absolute Neuts (auto) 11.3 H Absolute Lymphs (auto) 2.88 Nucleated RBC % 0 D-Dimer Quant (PE/DVT) 0.85 H* Sodium 138 Potassium 4.2 Chloride 100 Carbon Dioxide 33.0 H Anion Gap 5 BUN 17 Creatinine 1.13 H Estim Creat Clear Calc 38.86 Est GFR (MDRD) Af Amer 61 Est GFR (MDRD) Non-Af 50 L BUN/Creatinine Ratio 15.0 Glucose 72 L Calcium 10.5 H Troponin I < 0.015 - EKG Initial EKG Interpretation: Sinus Rhythm - Sinus rate of 90, no ST changes. There is T wave inversions in V2, similar to September 2013. Follow-up EKG Interpretation: Sinus Rhythm Prior: Unchanged - Medical Decision Making Patient nontoxic reporting sharp pains in the bases lower chest bilaterally. She stable on her oxygen she is afebrile. Cardiac work-up was negative. She had recurrent epigastric symptoms in the ED with repeat EKG that was negative. Given Zofran and Pepcid with improvement of symptoms. She had a white count of 15, however she is on prednisone daily 10 mg. Initial chest x-ray reported by radiology concerns for bilateral lower lobe infiltrates however she has no cough symptoms. Her d-dimer due to low risk Wells criteria with tachycardia on arrival along with sharp pain, this was elevated. Subsequent CT of the chest was negative for any PE. In addition there was no infiltrates on CT scan. Reevaluation she is stable improved symptoms. Discussed pleurisy. She is currently on prednisone. She has normal renal function, no history of gastric ulcers. Will place on short course of NSAIDs. Additional Pepcid will be written. Patient will discharge with outpatient follow-up, strict signs and some discussed to return. All questions were answered. ED Disposition - Plan for ED Patient: Disposition: Home or Assisted Living Diagnosis: Pleuritic chest pain Instructions: ED Chest Pain Pleurisy Prescriptions: Naproxen [Naprosyn] 500 mg PO BID PRN #20 tab Transmission Status: Pending to [id number] Famotidine [Pepcid] 20 mg PO BID #30 tab Transmission Status: Pending to [id number] Referrals: Mandi Canales MD [Primary Care Provider] - 3-5 Days
[2020-07-28 18:55] VITALS: O2SAT 99
--- NOTE | 2020-07-28 19:00 | RAD_ITS ---
STUDY: X-RAY CHEST REASON FOR EXAM: Female, 74 years old. Chest pain TECHNIQUE: Frontal view of the chest COMPARISON: CT dated 09/24/19 FINDINGS: There are stable emphysematous changes. There is patchy opacity in the lung bases. The upper lung barone are clear. There are no pleural effusions. There is no pneumothorax. The heart is normal in size. The visualized osseous structures are within normal limits. RAD/Chest 1 View (Portable) IMPRESSION: Patchy airspace opacities in the lung bases which is likely infectious in etiology. Electronically Signed: Refugio Nation, at 19:14 EDT Tel , Service support ,
[2020-07-28] MEDS: Aspirin 81 MG TAB.CHEW 324 MG PO (19:04)
[2020-07-28 19:14] LABS: Anion Gap 5 (5-15); BUN 17 mg/dL (7-18); Calcium,Total 10.5 mg/dL (8.5-10.1); Chloride 100 mmol/L (98-107); Creatinine, Serum 1.13 mg/dL (0.55-1.02); EST Glomerular Filtration Rate 50 mL/min (>60); Est Glom Filt Rate - Afr Amer 61 mL/min (>60); Estimated Creatinine Clearance 38.86 ml/min; Glucose 72 mg/dL (74-106); Potassium 4.2 mmol/L (3.5-5.1); Sodium Level 138 mmol/L (136-145)
[2020-07-28 19:36] LABS: Absolute Lymphocyte Count 2.88 X10^3/uL (0.83-4.51); Absolute Neutrophil Count 11.3 X10^3/uL (2.0-7.7); Basophil# 0.06 X10^3/uL; Basophil% 0.4 % (0-1); Eosinophil# 0.07 X10^3/uL; Eosinophils% 0.4 % (0-5); Hematocrit 48.1 % (37-47); Hemoglobin 15.6 g/dL (12.0-15.0); Lymphocyte # 2.88 X10^3/ul (4.0); Lymphocyte % 18.3 % (19-41); Mean Corp Hgb Conc 32.4 g/dL (32-36); Mean Corpuscular Hgb 30.8 pg (27.0-32.0); Mean Corpuscular Volume 94.9 fL (81-99); Mean Platelet Vol. 9.3 fl (6.2-12.0); Monocyte# 1.43 X10^3/uL; Monocyte% 9.1 % (0-10); NRBC Flagged by Analyzer 0 % (0-5); Neutrophil # 11.28 X10^3/uL (2.7-7.7); Neutrophil % 71.5 % (47-70); Platelet Count 377 K/mm3 (150-450); RBC Distribution Width CV 12.6 % (11.6-14.6); RBC Distribution Width SD 43.3 fl (35.1-43.9); Red Blood Count 5.07 M/mm3 (4.2-5.4); White Blood Count 15.8 K/mm3 (4.4-11.0)
[2020-07-28 19:59] LABS: D-Dimer Quantitative (DVT/PE) 0.85 FEU/ug/m (0.27-0.49)
[2020-07-28 20:08] VITALS: BP 156/57; PULSE 73; RESP 27; O2SAT 97
--- NOTE | 2020-07-28 20:09 | ED.RN ---
PT WITH INCREASED CHEST PAIN. REPORTS NAUSEA. DR. CASEY INFORMED. ORDERS FOR REPEAT EKG GIVEN. RESPIRATORY NOTIFIED.
--- NOTE | 2020-07-28 20:15 | CT_ITS ---
STUDY: CTA CHEST REASON FOR EXAM: Female, 74 years old. CP/ELEV DDIMER, SOB RADIATION DOSAGE (If Supplied By Facility): CTDIvol = ( 10.07 ) mGy, DLP = ( 430.70 ) mGycm TECHNIQUE: The examination was performed with the intravenous administration of IV 100mL Isovue-370. Post-processing of the angiographic images was performed, with multiplanar reformation and 3D reconstruction. Individualized dose optimization techniques were used for this CT. COMPARISON: 09/24/19 FINDINGS: The study is limited by patient motion. There are stable emphysematous changes noted in the lungs. There is stable scarring noted in the right mid to upper lung field. There are no pulmonary infiltrates or pleural effusions. There is no evidence of pulmonary embolus. There is no evidence of thoracic aortic aneurysm or dissection. The heart and pericardium are within normal limits. There is no thoracic lymphadenopathy. Images through the upper abdomen demonstrate no significant abnormality. There are no destructive osseous lesions. CT/CTA Chest W/WO Contrast IMPRESSION: Study limited by patient motion. No evidence of pulmonary embolus. No evidence of thoracic aortic aneurysm or dissection. Stable emphysema with stable scarring in the right lung. No pulmonary infiltrates or pleural effusions. Electronically Signed: Refugio Nation, at 21:04 EDT Tel , Service support ,
--- NOTE | 2020-07-28 20:29 | EKG12_ITS ---
Test Reason : CP Blood Pressure : / mmHG Vent. Rate : 090 BPM Atrial Rate : 090 BPM P-R Int : 158 ms QRS Dur : 096 ms QT Int : 380 ms P-R-T Axes : 062 -13 046 degrees QTc Int : 464 ms Sinus rhythm with Fusion complexes Possible Left atrial enlargement Indeterminate axis Incomplete right bundle branch block Borderline ECG Confirmed by MICK MERA, ANNA ([id number]), staff editor LADY MCLAUGHLIN ([id number]) on 08/03/2020 1:05:06 PM Referred By: Confirmed By:ANNA BARTON MD
[2020-07-28] MEDS: Ondansetron 4 MG/2 ML Vial IV (20:39)
[2020-07-28] MEDS: Famotidine 200 MG/20 ML MDV 20 MG in 0.9% Normal Saline (Pres. free 8 ML 300 MG IV (20:39)
[2020-07-28 21:00] VITALS: BP 170/98; PULSE 77; RESP 20; TEMP 36.9; O2SAT 99
[2020-07-28 21:22] VITALS: BP 162/84; PULSE 83; RESP 23; O2SAT 100
== END 2020-07-28 21:27 | disposition home or self-care (01) ==
PROVIDERS: Emergency Provider Emergency Medicine; PCP Internal Medicine
DX: R07.89 Other chest pain (principal); Z79.82 Long term (current) use of aspirin; Z86.73 Personal history of transient ischemic attack (TIA), and cerebral infarction without residual deficits; Z99.81 Dependence on supplemental oxygen; Z87.891 Personal history of nicotine dependence; J44.9 Chronic obstructive pulmonary disease, unspecified
CPT/HCPCS: 71045; 71275; 80048; 84484; 85025; 85379; 93005; 96374; 99285; Q9967; A4216; J2405; J3490

== ENCOUNTER 2020-09-10 13:28 | Emergency (ER) | payer MEDICARE, OTHER, SELFPAY ==
[2020-09-10] VITALS (10 sets, daily range): BP systolic 150–187; BP diastolic 59–93; PULSE 93–116; RESP 16–24; TEMP 36.6–37; O2SAT 94–100; BMI 36.3
--- NOTE | 2020-09-10 13:59 | EKG12_ITS ---
Test Reason : Blood Pressure : / mmHG Vent. Rate : 095 BPM Atrial Rate : 095 BPM P-R Int : 176 ms QRS Dur : 092 ms QT Int : 358 ms P-R-T Axes : 057 -18 034 degrees QTc Int : 449 ms Normal sinus rhythm RSR' or QR pattern in V1 suggests right ventricular conduction delay Borderline ECG Confirmed by SINGH MERA, FABIO ([id number]), film and video editor JOHANA PADGETT ([id number]) on 09/13/2020 9:47:24 AM Referred By: MARIS Confirmed By:FABIO WINTERS MD
[2020-09-10] MEDS: MethylPREDNISolone 125 MG/2 ML Vial IV (14:21)
--- NOTE | 2020-09-10 14:28 | RAD_ITS ---
STUDY: X-RAY CHEST REASON FOR EXAM: Female, 75 years old. Increased of SOB going on for the past couple of days. Recent diagnosis of pleurisy. HX COPD, CHF. TECHNIQUE: Single AP portable view of the chest. COMPARISON: Comparison is made with prior study dated 07/28/2020. FINDINGS: EKG electrodes are seen. Hyperinflation. Stable appearance of the left pleural parenchymal changes. Stable mild increased markings at the right lung base suggestive of scarring. Decreased bronchovascular markings in the upper lobes suggestive of emphysematous change. Surgical sutures are seen in the right upper lobe. Normal size heart. Normal mediastinum and eugenio. There is prominence of the pulmonary hilar arteries without peripheral pulmonary vascular congestion, suggesting pulmonary hypertension. There is atherosclerotic calcification of the aortic arch with tortuosity. There are diffuse degenerative changes of the visualized thoracic spine. Normal visualized ribs, clavicles, and shoulders. There is no demonstrated abnormality of the visualized soft tissue structures of the upper abdomen. RAD/Chest 1 View (Portable) IMPRESSION: Hyperinflation and emphysematous changes. Stable pleural parenchymal changes at the left lung base as well as scarring at the right lung base. Electronically Signed: Osvaldo Frank, at 14:46 EST , Service support ,
[2020-09-10 14:33] LABS: Absolute Lymphocyte Count 1.17 X10^3/uL (0.83-4.51); Absolute Neutrophil Count 14.1 X10^3/uL (2.0-7.7); Basophil# 0.06 X10^3/uL; Basophil% 0.4 % (0-1); Eosinophil# 0.01 X10^3/uL; Eosinophils% 0.1 % (0-5); Hematocrit 45.1 % (37-47); Hemoglobin 14.5 g/dL (12.0-15.0); Lymphocyte # 1.17 X10^3/ul (4.0); Lymphocyte % 7.3 % (19-41); Mean Corp Hgb Conc 32.2 g/dL (32-36); Mean Corpuscular Hgb 30.4 pg (27.0-32.0); Mean Corpuscular Volume 94.5 fL (81-99); Mean Platelet Vol. 9.1 fl (6.2-12.0); Monocyte# 0.55 X10^3/uL; Monocyte% 3.4 % (0-10); NRBC Flagged by Analyzer 0 % (0-5); Neutrophil # 14.09 X10^3/uL (2.7-7.7); Neutrophil % 88.4 % (47-70); Platelet Count 371 K/mm3 (150-450); RBC Distribution Width CV 12.2 % (11.6-14.6); RBC Distribution Width SD 42.5 fl (35.1-43.9); Red Blood Count 4.77 M/mm3 (4.2-5.4)
--- NOTE | 2020-09-10 14:41 | ED.VIS.GEN ---
History of Present Illness Informant: Patient Narrative: 75-year-old female with a history of CHF and COPD who chronically wears 3 L of home oxygen. She presents to the emergency department with a chief complaint of shortness of breath. She states that today she watched her pulse ox dropped to around 80 with ambulation after only about 12 steps. She denies any significant cough. No fevers. She notes her legs are swollen but they are not any different than her normal swelling. that she does not take daily prednisone but she carries a diagnosis of steroid dependence and her med list shows prednisone. He did not take her Lasix this morning as she was planning on taking a trip to [place]. <Ran Cowart - Last Filed: 09/10/20 16:00> <Colin Vincent - Last Filed: 09/10/20 17:37> Chief Complaint: Shortness of Breath - Past Medical History (1) Benign hypertension Status: Chronic (2) CHF (congestive heart failure) Status: Chronic (3) COPD (chronic obstructive pulmonary disease) Status: Chronic (4) Chronic respiratory failure Status: Chronic (5) Peripheral vascular disease Status: Chronic (6) Venous insufficiency Status: Chronic <Ran Cowart - Last Filed: 09/10/20 16:00> Past Medical History Prior records reviewed: Yes Surgical History: noncontributory - As noted above, - - Patient is undergone lung volume reduction surgery in 2011. She has had breast biopsies in the past for benign disease. She is also undergone appendectomy. The patient is a AB 4. Smoking Status: Former smoker Drugs: None - Family History Maternal Family History: Reports: - - The patient's father at the age of 70 with a history of chronic obstructive pulmonary disease. Patient's mother at the age of 70 with a history of chronic obstructive pulmonary disease. <Ran Cowart - Last Filed: 09/10/20 16:00> <Colin Vincent - Last Filed: 09/10/20 17:37> - Allergies and Home Meds Allergies/Adverse Reactions: Allergies albuterol Allergy (Verified 09/10/20 13:38) Shortness of breath belladonna alkaloids [Belladonna Alkaloids] Allergy (Verified 09/10/20 13:38) Unknown lisinopril Allergy (Verified 09/10/20 13:38) Unknown phenobarbital Allergy (Verified 09/10/20 13:38) Unknown doxazosin mesylate [From Cardura] Adverse Reaction (Verified 09/10/20 13:38) Other Primary Care Physician: Mandi Canales MD [Primary Care Provider] - Review of Systems General: Denies: Chills, Fever, Sweats Eyes: Denies: Visual changes - bilaterally, Diplopia ENT: Denies: Rhinorrhea, Sore throat Cardiovascular: Denies: Chest pain, Palpitations Respiratory: Reports: Dyspnea, Dyspnea on exertion. Denies: Cough Gastrointestinal: Denies: Abdominal pain, Nausea, Vomiting, Diarrhea, Melena, Hematochezia Genitourinary: Denies: Dysuria, Hematuria, Frequency Musculoskeletal: Reports: Swelling. Denies: Back pain, Extremity Pain Skin: Denies: Rash, Wounds Neurological: Denies: Headache, Weakness, Numbness <Ran Cowart - Last Filed: 09/10/20 16:00> Physical Exam Vital Signs/Narrative: Vital Signs Temp Pulse Resp BP Pulse Ox 09/10/20 14:28 98.6 F 105 H 20 H 177/65 H 97 09/10/20 14:26 103 H 09/10/20 13:42 98 F 101 H 22 H 187/83 H 98 09/10/20 13:29 98 F 109 H 24 H 187/93 H 98 Inital Vital Signs reviewed: Yes General: Well nourished, Well developed, No Acute Distress Head: Normocephalic, Atraumatic Eyes: Perrl, EOMI ENT: Moist mucous membranes, No rhinorrhea Neck: Supple, Nontender Cardiovascular: Regular rate, No murmurs, Tachycardia Respiratory: No distress, Chest nontender, Decreased Air Movement, - - Very quiet lung barone bilaterally. She is quietly tachypneic but not in distress. Abdomen: Soft, Nontender, Nondistended, Normal bowel sounds Back: Nontender, Normal Inspection Extremities: Nontender, No edema, - - Patient has compression socks on Skin: Normal color, No rash Neurological: Alert, Oriented x3, Cranial nerves II-XII grossly intact, Normal Strength, Normal Sensation Psychological: Normal affect, Normal Mood <Ran Cowart - Last Filed: 09/10/20 16:00> Vital Signs/Narrative: Vital Signs Temp Pulse Resp BP Pulse Ox 09/10/20 17:00 98.2 F 100 23 H 165/59 H 100 09/10/20 16:00 98 F 116 H 23 H 180/81 H 94 09/10/20 15:00 98.4 F 94 16 150/89 H 97 09/10/20 14:28 98.6 F 105 H 20 H 177/65 H 97 09/10/20 14:26 103 H 09/10/20 13:42 98 F 101 H 22 H 187/83 H 98 <Colin Vincent - Last Filed: 09/10/20 17:37> Diagnostic/Tx/Re-eval - EKG Initial EKG Interpretation: Sinus Rhythm - EKG demonstrates a normal sinus rhythm at a rate of 95. There is an RSR prime in V1. No ectopy. No concerning features of ACS. - Medical Decision Making Patient received Solu-Medrol and 6 puffs of her own inhaler. Repeat examination she states she is doing okay but she has now started coughing. The patient ambulated on her home 3 L and did not become hypoxic. The patient remains tachycardic and with her dyspnea we are going to do a CTA for pulmonary embolism. <Ran Cowart - Last Filed: 09/10/20 16:00> Impressions Chest X-Ray 09/10/20 14:28 IMPRESSION: Hyperinflation and emphysematous changes. Stable pleural parenchymal changes at the left lung base as well as scarring at the right lung base. Electronically Signed: Osvaldo Frank, at 14:46 EST , Service support , Chest CTA 09/10/20 15:20 IMPRESSION: 1. There is increased compression and loss of height of the T7 vertebral body when compared to 07/28/2020. 2. There is masslike soft tissue prominence in the left renal midpole measuring 3.[address] abdomen with IV contrast, renal protocol is recommended for further evaluation. 3. No pulmonary embolism or arterial dissection. 4. Moderate emphysema. No focal pulmonary consolidation. Electronically Signed: Roxana Banda, at 17:08 EST Tel , Service support , 09/10/20 14:28 Chest 1 View (Portable) [RAD] Stat 09/10/20 15:20 CTA Chest W/WO Contrast [CT] Stat Laboratory Results 09/10/20 09/10/20 09/10/20 13:35 13:35 13:35 WBC 16.0 H RBC 4.77 Hgb 14.5 Hct 45.1 MCV 94.5 MCH 30.4 MCHC 32.2 RDW Std Deviation 42.5 RDW Coeff of Ashley 12.2 Plt Count 371 MPV 9.1 Immature Gran % (Auto) 0.400 Neut % (Auto) 88.4 H Lymph % (Auto) 7.3 L [place] % (Auto) 3.4 Eos % (Auto) 0.1 Baso % (Auto) 0.4 Absolute Neuts (auto) 14.1 H Absolute Lymphs (auto) 1.17 Nucleated RBC % 0 Sodium 137 Potassium 4.1 Chloride 101 Carbon Dioxide 33.0 H Anion Gap 3 L BUN 14 Creatinine 0.90 Estim Creat Clear Calc 48.07 Est GFR (MDRD) Af Amer 79 Est GFR (MDRD) Non-Af 65 BUN/Creatinine Ratio 15.5 Glucose 138 H Calcium 9.9 Troponin I < 0.015 B-Natriuretic Peptide 178.4 H COVID-19 (STEPHANIE) 09/10/20 14:29 WBC RBC Hgb Hct MCV MCH MCHC RDW Std Deviation RDW Coeff of Ashley Plt Count MPV Immature Gran % (Auto) Neut % (Auto) Lymph % (Auto) [place] % (Auto) Eos % (Auto) Baso % (Auto) Absolute Neuts (auto) Absolute Lymphs (auto) Nucleated RBC % Sodium Potassium Chloride Carbon Dioxide Anion Gap BUN Creatinine Estim Creat Clear Calc Est GFR (MDRD) Af Amer Est GFR (MDRD) Non-Af BUN/Creatinine Ratio Glucose Calcium Troponin I B-Natriuretic Peptide COVID-19 (STEPHANIE) Negative - Medical Decision Making I took over care of this patient. Her COVID-19 test returned negative, and her CT angiography of the chest shows nothing acute; no pneumonia or pulmonary embolus. It does show emphysema which is already known. I suspect her symptoms are mostly due to COPD exacerbation. Of note the CT did show the possibility of a left renal mass 3.9 cm. I discussed this with the patient. She states that comes and goes all the time I already know about it. I advised her to talk to her primary care doctor about the results of the scan that we did today anyway. I also advised that she follow-up with pulmonology regarding her COPD flareup, she agrees. I will place her on a prednisone taper and broad-spectrum antibiotic. She is okay going home, I did offer her admission since she states she is still feeling a little tight and dyspnea, but she is talking in full sentences, she was ambulatory here in the ER without significant exacerbation of symptoms and she had pulse ox go only down to 92%. She declines admission and does not want to stay here in the hospital and understands reasons to return. <Colin Vincent - Last Filed: 09/10/20 17:37> ED Disposition <Ran Cowart - Last Filed: 09/10/20 16:00> <Colin Vincent - Last Filed: 09/10/20 17:37> - Plan for ED Patient: Disposition: Home or Assisted Living Diagnosis: COPD with acute exacerbation, Viral upper respiratory tract infection with cough, Left renal mass Instructions: ED COPD Flare Prescriptions: Prednisone 10 mg PO UD #30 tab Transmission Status: Pending to [id number] Azithromycin [Zithromax Z-Andrew] 250 mg PO UD #1 box Transmission Status: Pending to [id number] Referrals: Mandi Canales MD [Primary Care Provider] - (When able, call for appointment) Arvin Villela MD [NON-STAFF] - 5-7 Days
[2020-09-10 15:02] LABS: Anion Gap 3 (5-15); BUN 14 mg/dL (7-18); BUN/Creat Ratio 15.5 RATIO (10-20); Calcium,Total 9.9 mg/dL (8.5-10.1); Chloride 101 mmol/L (98-107); EST Glomerular Filtration Rate 65 mL/min (>60); Est Glom Filt Rate - Afr Amer 79 mL/min (>60); Estimated Creatinine Clearance 48.07 ml/min; Glucose 138 mg/dL (74-106); Potassium 4.1 mmol/L (3.5-5.1); Sodium Level 137 mmol/L (136-145)
[2020-09-10 15:17] LABS: BNP,B-Type NATRIURETIC PEPTIDE 178.4 pg/mL (0-100)
--- NOTE | 2020-09-10 15:20 | CT_ITS ---
STUDY: CTA CHEST REASON FOR EXAM: Female, 75 years old. Worsening shortness of breath RADIATION DOSAGE (If Supplied By Facility): CTDIvol = ( 9.32 ) mGy, DLP = ( 495.74 ) mGycm TECHNIQUE: The examination was performed with the intravenous administration of IV 100mL Isovue-370. Post-processing of the angiographic images was performed, with multiplanar reformation and 3D reconstruction. Individualized dose optimization techniques were used for this CT. COMPARISON: Chest CTA 07/28/2020. FINDINGS: Normal enhancement of the main pulmonary artery and right and left pulmonary arteries. Normal enhancement of the bilateral peripheral pulmonary arteries. There is no demonstrated pulmonary embolism. Normal pleura. Moderate pulmonary emphysema. There is biapical pleural-parenchymal scarring. There is a right upper lobe, right paramediastinal and left upper lobe scarring and calcifications. No focal pulmonary consolidation. There is aortic atherosclerotic and nonatheromatous plaque. There is no demonstrated aortic dissection. Normal heart and pericardium. Mild coronary artery calcifications. No mediastinal, axillary or bulky hilar adenopathy. Normal visualized trachea and bronchi. Normal chest wall structures. There is increased compression and loss of height of the T7 vertebral body when compared to 07/28/2020 where demonstrated mild height loss. There is a partially visualized right renal midpole cyst. There is masslike soft tissue prominence in the left renal midpole measuring 3.[address]/CTA Chest W/WO Contrast IMPRESSION: 1. There is increased compression and loss of height of the T7 vertebral body when compared to 07/28/2020. 2. There is masslike soft tissue prominence in the left renal midpole measuring 3.[address] abdomen with IV contrast, renal protocol is recommended for further evaluation. 3. No pulmonary embolism or arterial dissection. 4. Moderate emphysema. No focal pulmonary consolidation. Electronically Signed: Roxana Banda, at 17:08 EST Tel , Service support ,
[2020-09-10 15:38] LABS: Probe Check PASS; Specimen Processing Control PASS
[2020-09-10] MEDS: LORazepam 2 MG/ML Syringe 1 MG IV (16:09)
== END 2020-09-10 18:01 | disposition home or self-care (01) ==
PROVIDERS: Emergency Provider Emergency Medicine; PCP Internal Medicine
DX: J43.9 Emphysema, unspecified (principal); J06.9 Acute upper respiratory infection, unspecified; N28.89 Other specified disorders of kidney and ureter; I11.0 Hypertensive heart disease with heart failure; I50.9 Heart failure, unspecified; I73.9 Peripheral vascular disease, unspecified; I87.2 Venous insufficiency (chronic) (peripheral); Z99.81 Dependence on supplemental oxygen; Z79.899 Other long term (current) drug therapy; Z87.891 Personal history of nicotine dependence
CPT/HCPCS: 71045; 71275; 80048; 83880; 84484; 85025; 87040; 87635; 93005; 96374; 96375; 99285; Q9967; U0002

== ENCOUNTER 2021-01-25 00:19 | Inpatient (IN) | payer MEDICARE, OTHER, SELFPAY ==
[2020-09-10 13:29] VITALS: BMI 36.3
[2021-01-25] VITALS (31 sets, daily range): BP systolic 147–193; BP diastolic 55–148; PULSE 70–116; RESP 12–26; TEMP 35.8–36.9; O2SAT 88–99; BMI 32.8; BMI 32.2; BMI 32.3
--- NOTE | 2021-01-25 00:59 | EKG12_ITS ---
Test Reason : CP Blood Pressure : / mmHG Vent. Rate : 098 BPM Atrial Rate : 098 BPM P-R Int : 156 ms QRS Dur : 082 ms QT Int : 336 ms P-R-T Axes : 073 -49 043 degrees QTc Int : 428 ms Sinus rhythm with Fusion complexes Left anterior fascicular block Poor R- wave progression Inferior MS, age undetermined, cannot be excluded Abnormal ECG Confirmed by MICK MERA, ANNA ([id number]), production editor LADY MCLAUGHLIN ([id number]) on 01/28/2021 2:30:44 PM Referred By: JUAN Confirmed By:ANNA BARTON MD
--- NOTE | 2021-01-25 00:59 | RAD_ITS ---
STUDY: X-RAY CHEST REASON FOR EXAM: Female, 75 years old. sob TECHNIQUE: Single AP portable view of the chest. COMPARISON: 09/10/2020 chest x-ray report. FINDINGS: Vascular crowding in the infrahilar region with mild bilateral basilar atelectasis, otherwise clear lungs. Question sequela of postoperative changes of bilateral mid upper lung barone. Mild to moderate left-sided pleural effusion. Normal size heart. Normal mediastinum and eugenio. Normal visualized pulmonary arteries. There is atherosclerotic calcification of the aortic arch with tortuosity. There are diffuse degenerative changes of the visualized thoracic spine. There is degenerative osteoarthritis of the bilateral shoulders. There is no demonstrated abnormality of the visualized soft tissue structures of the upper abdomen. RAD/Chest 1 View (Portable) IMPRESSION: Mild left-sided pleural effusion. Bilateral basilar atelectasis with crowding of vessels. Questionable postoperative changes through the bilateral mid upper lung barone. Electronically Signed: Lidia Rolle MD at 1:19 EDT , Service support ,
--- NOTE | 2021-01-25 01:01 | ED.DCSUM_ITS ---
History of Present Illness Chief Complaint: Shortness of Breath Informant: Patient Onset: Days - 3-4 Activity at onset: Light Activity - initially, Rest - now Timing: Continuous Quality: Dyspnea on exertion, Orthopnea, Wheezing Current Severity: Moderate Maximum Severity: Severe Worsened by: Coughing, Exertion, Lying flat Relieved by: Rest, - - home inhaler Associated Symptoms: Cough. Negative for: Chills, Clear sputum, Fever, Sweats Chest Pain: Sharp - intermittent x 3d, lower substernal Narrative: 75-year-old female who feels like her COPD has been getting worse over this past 6 months, and worse still in the past 3 or 4 days. No fevers or chills. Has a Xopenex MDI at home that she has been using and it has been helping but not enough, especially today. Sharp pleuritic chest pains. Has been vaccinated for Covid, both doses. No contact with anyone with Covid that she knows of. No sick contacts that she knows of. Does not have a chronic cough, but she does have a mild acute nonproductive cough along with lots of clear rhinorrhea. Increased swelling in her legs. Compliant with her twice daily Lasix, and denies drinking more fluids than usual. She does urinate good when she takes her Lasix. Takes no anticoagulant or antiplatelet medications. History of right heart failure but no coronary disease that she knows of. - Past Medical History (1) Benign hypertension Status: Chronic (2) CHF (congestive heart failure) Status: Chronic (3) COPD (chronic obstructive pulmonary disease) Status: Chronic (4) Chronic respiratory failure Status: Chronic (5) Hx TIA/stroke w/o resid Status: Chronic (6) Hyperlipidemia Status: Chronic (7) Hypertension Status: Chronic (8) Peripheral vascular disease Status: Chronic (9) Venous insufficiency Status: Chronic Past Medical History - Allergies and Home Meds Allergies/Adverse Reactions: Allergies albuterol Allergy (Verified 09/10/20 13:38) Shortness of breath belladonna alkaloids [Belladonna Alkaloids] Allergy (Verified 01/25/21 00:24) Rash lisinopril Allergy (Verified 01/25/21 00:24) Angioedema phenobarbital Allergy (Verified 01/25/21 00:24) Rash doxazosin mesylate [From Cardura] Adverse Reaction (Verified 01/25/21 00:24) PT UNSURE OF REACTION Primary Care Physician: Mandi Canales MD [Primary Care Provider] - Surgical History: - - Patient is undergone lung volume reduction surgery in 2011. She has had breast biopsies in the past for benign disease. She is also undergone appendectomy. The patient is a AB 4. Lives: Spouse/ Significant Other Smoking Status: Former smoker - Family History Maternal Family History: Reports: - - The patient's father at the age of 70 with a history of chronic obstructive pulmonary disease. Patient's mother at the age of 70 with a history of chronic obstructive pulmonary disease. Paternal Family History: Reports: COPD Review of Systems General: Reports: Malaise. Denies: Chills, Fever, Sweats Eyes: Denies: Visual changes - bilaterally, Diplopia ENT: Denies: Rhinorrhea, Sore throat Cardiovascular: Reports: Chest pain, Heart racing - When my oxygen levels go down, chronic. Denies: Palpitations Respiratory: Reports: Dyspnea, Cough, Dyspnea on exertion, Orthopnea. Denies: Sputum Gastrointestinal: Denies: Abdominal pain, Nausea, Vomiting, Diarrhea, Melena, Hematochezia Genitourinary: Denies: Dysuria, Hematuria, Frequency Musculoskeletal: Reports: Back pain - From T7 compression fracture, chronic, Swelling. Denies: Extremity Pain Skin: Denies: Rash, Wounds Neurological: Denies: Headache, Weakness, Numbness Physical Exam Vital Signs/Narrative: Vital Signs Temp Pulse Resp BP Pulse Ox 01/25/21 00:56 93 24 H 162/55 H 96 01/25/21 00:27 96.4 F L 98 19 H 157/139 H 98 01/25/21 00:20 96.4 F L 103 H 157/139 H 98 Inital Vital Signs reviewed: Yes General: Well nourished, Well developed, Obese, Acute Distress - Respiratory Head: Normocephalic, Atraumatic Eyes: Perrl, EOMI ENT: Moist mucous membranes, No rhinorrhea Neck: Supple, Nontender, No lymphadenopathy, No JVD - However exam limited by obesity Cardiovascular: Regular rate, Regular rhythm, No murmurs, Tachycardia Respiratory: No distress, Chest nontender, Wheezing - Mild expiratory, Diminished, - - Prolonged expiration. Negative for: Rales, Rhonchi Abdomen: Soft, Nontender, Nondistended, Normal bowel sounds Back: Normal Inspection. Negative for: CVA tenderness Extremities: Nontender, Edema - 2+ both lower extremities to proximal saunders, symmetric. Negative for: Calf Tenderness Skin: Normal color, No rash, No Trauma Neurological: Alert, Oriented x3, Cranial nerves II-XII grossly intact, Normal Strength, Normal Sensation Psychological: Normal affect, Normal Mood Diagnostic/Tx/Re-eval Impressions Chest X-Ray 01/25/21 00:59 IMPRESSION: Mild left-sided pleural effusion. Bilateral basilar atelectasis with crowding of vessels. Questionable postoperative changes through the bilateral mid upper lung barone. Electronically Signed: Lidia Rolle MD at 1:19 EDT , Service support , 01/25/21 00:59 Chest 1 View (Portable) [RAD] Stat 01/25/21 01:07 Mucosa - Nasopharyngeal Influenza Types A,B Direct FA (ALIYAH) - Final 01/25/21 01:07 Mucosa - Nose SARS-CoV-2 Antigen (Rapid) - Final Laboratory Results 01/25/21 01/25/21 01/25/21 00:27 00:27 00:52 WBC 21.3 H RBC 4.60 Hgb 14.3 Hct 44.3 MCV 96.3 MCH 31.1 MCHC 32.3 RDW Std Deviation 43.6 RDW Coeff of Ashley 12.2 Plt Count 318 MPV 9.4 Immature Gran % (Auto) 0.700 Neut % (Auto) 80.1 H Lymph % (Auto) 7.8 L Butts % (Auto) 10.8 H Eos % (Auto) 0.4 Baso % (Auto) 0.2 Absolute Neuts (auto) 17.1 H Absolute Lymphs (auto) 1.67 Nucleated RBC % 0 Diff Path Review May foll Sodium 137 Potassium 4.0 Chloride 96 L Carbon Dioxide 41.0 H Anion Gap 0 L BUN 20 H Creatinine 1.03 H Estim Creat Clear Calc 42.01 Est GFR (MDRD) Af Amer 68 Est GFR (MDRD) Non-Af 56 L BUN/Creatinine Ratio 19.4 Glucose 113 H Calcium 9.3 Troponin I < 0.015 B-Natriuretic Peptide 296.9 H - Rhythm Strip Rhythm Strip: Sinus Tach Rate: 100 Ectopy: None - EKG Initial EKG Interpretation: Sinus Rhythm, No Acute Injury Pattern, LAFB Prior: Unchanged Treatment - Dyspnea: Oxygen, Atrovent, Steroid - Medical Decision Making Patient states for reasons that are unknown exactly, she does not tolerate albuterol. She takes Xopenex at home. We do not have Xopenex or generic leave albuterol in the hospital so I gave her a treatment of plain ipratropium which did not improve her respiratory distress very much. Her brought her BiPAP from home, so we placed her on BiPAP which really seem to help, but she was still having trouble breathing. Work-up shows a significant leukocytosis, the x-ray is fairly nonspecific, 1 view on my interpretation shows atelectasis without any definite infiltrate or CHF pattern. She was given steroids, the rest of her work-up is fairly unremarkable, her BNP is really not very high for someone this dyspneic so my suspicion is this is more of a COPD/lung issue than left heart failure. We will obtain an ABG and admit her to the hospital for further treatment. ABG shows a pH of 7.31, PCO2 78.9, PO2 75.5, bicarb 40. This is consistent with acute hypercapnic respiratory failure to a relatively mild degree. ED Disposition - Plan for ED Patient: Disposition: Acute Care Hospital [facility] Diagnosis: COPD exacerbation, CHF (congestive heart failure), Atypical chest pain, Acute hypercapnic respiratory failure Referrals: Mandi Canales MD [Primary Care Provider] -
[2021-01-25 01:04] LABS: Absolute Lymphocyte Count 1.67 X10^3/uL (0.83-4.51); Absolute Neutrophil Count 17.1 X10^3/uL (2.0-7.7); Basophil# 0.05 X10^3/uL; Basophil% 0.2 % (0-1); Eosinophil# 0.08 X10^3/uL; Eosinophils% 0.4 % (0-5); Hematocrit 44.3 % (37-47); Hemoglobin 14.3 g/dL (12.0-15.0); Lymphocyte # 1.67 X10^3/ul (4.0); Lymphocyte % 7.8 % (19-41); Mean Corp Hgb Conc 32.3 g/dL (32-36); Mean Corpuscular Hgb 31.1 pg (27.0-32.0); Mean Corpuscular Volume 96.3 fL (81-99); Mean Platelet Vol. 9.4 fl (6.2-12.0); Monocyte% 10.8 % (0-10); NRBC Flagged by Analyzer 0 % (0-5); Neutrophil % 80.1 % (47-70); POSITIVE DIFFERENTIAL YES; Platelet Count 318 K/mm3 (150-450); RBC Distribution Width CV 12.2 % (11.6-14.6); RBC Distribution Width SD 43.6 fl (35.1-43.9); White Blood Count 21.3 K/mm3 (4.4-11.0)
[2021-01-25 01:09] LABS: Differential Indicated SCAN CRITERIA MET
[2021-01-25] MEDS: MethylPREDNISolone 125 MG/2 ML Vial IV (01:13)
[2021-01-25] MEDS: Ipratropium 0.5 MG/2.5 ML SOLUTION INHALATION ×5 (01:15→18:44)
[2021-01-25 01:18] LABS: Anion Gap 0 (5-15); BUN 20 mg/dL (7-18); BUN/Creat Ratio 19.4 RATIO (10-20); Calcium,Total 9.3 mg/dL (8.5-10.1); Chloride 96 mmol/L (98-107); Creatinine, Serum 1.03 mg/dL (0.55-1.02); EST Glomerular Filtration Rate 56 mL/min (>60); Est Glom Filt Rate - Afr Amer 68 mL/min (>60); Estimated Creatinine Clearance 42.01 ml/min; Glucose 113 mg/dL (74-106); Sodium Level 137 mmol/L (136-145)
[2021-01-25 01:20] LABS: BNP,B-Type NATRIURETIC PEPTIDE 296.9 pg/mL (0-100)
--- NOTE | 2021-01-25 02:39 | PCM.HP.STD ---
<Gertrude Chaparro - Last Filed: 01/25/21 02:39> Problem List (1) Acute respiratory failure Status: Acute Qualifiers: Respiratory failure complication: hypercapnia Qualified Code(s): J96.02 - Acute respiratory failure with hypercapnia (2) COPD exacerbation Status: Acute (3) Atypical chest pain Status: Acute (4) History of smoking Status: Chronic (5) Obesity Status: Chronic Qualifiers: Obesity type: due to excess calories Body mass index: BMI 32.0-32.9 (6) Hyperlipidemia Status: Chronic (7) Hypertension Status: Chronic (8) CHF (congestive heart failure) Status: Chronic Qualifiers: Heart failure type: right-sided History of Present Illness Date of Admission: 01/25/21 Chief Complaint: Shortness of breath The patient is a 75 year old F who presented to the ER following increasing shortness of breath over the past 3 to 4 days. Patient states Xopenex inhaler at home has been ineffective at improving shortness of breath. Patient reports being vaccinated for Covid, both doses. Patient complains of sharp pleuritic chest pain, shortness of breath, nonproductive cough, and increased swelling in her legs. Patient denies fevers, chills, nausea, vomiting. Patient also reports compliance with her medications including Lasix. Patient is currently on BiPAP in ER and mildly hypertensive, 162/55. Patient reports she is typically on 3 L nasal cannula oxygen at home but this past week has been on 4 L due to the increasing shortness of breath. Patient is tachycardic, tachypneic, and has a white blood cell count 21.3. Troponin negative, BNP 296.9. Past Medical History Past Medical History (Chronic Problems): Chronic Problems Venous insufficiency (Chronic) Delayed wound healing (Chronic) History of smoking (Chronic) Chronic respiratory failure (Chronic) Obesity (Chronic) COPD (chronic obstructive pulmonary disease) (Chronic) Steroid dependent (Chronic) Leg swelling (Chronic) Hyperlipidemia (Chronic) Hypertension (Chronic) CHF (congestive heart failure) (Chronic) Hx TIA/stroke w/o resid (Chronic) Edema leg (Chronic) Leg edema, left (Chronic) Peripheral vascular disease (Chronic) Benign hypertension (Chronic) Allergies albuterol Allergy (Verified 09/10/20 13:38) Shortness of breath belladonna alkaloids [Belladonna Alkaloids] Allergy (Verified 01/25/21 00:24) Rash lisinopril Allergy (Verified 01/25/21 00:24) Angioedema phenobarbital Allergy (Verified 01/25/21 00:24) Rash doxazosin mesylate [From Cardura] Adverse Reaction (Verified 01/25/21 00:24) PT UNSURE OF REACTION Home Medications: Ambulatory Orders Medication Instructions Recorded Furosemide [Lasix] 80 mg PO BID 07/22/13 Multivit-Min/FA/Lycopene/Lut 1 each PO DAILY 07/22/13 [Centrum Silver Tablet] Verapamil HCl [Calan Sr] 120 mg PO Q12 07/22/13 Potassium Chloride Oral Tablet 20 meq PO DAILY 07/24/13 [K-Dur] Clonidine HCl [Catapres] 0.2 mg PO TID 02/25/14 Levalbuterol Tartrate [Xopenex Hfa 1 - 2 puff INHALATION 4X/DAY PRN 02/25/14 Inhaler] PRN Tiotropium [place] [Spiriva 18 MCG] 1 puff INHALATION DAILY 02/25/14 Budesonide/Formoterol 80-4.5 2 puff INHALATION BID 03/11/17 [Symbicort 80-4.5 Mcg Inhaler] Cholecalciferol (Vitamin D3) 2,000 unit PO DAILY 09/24/19 [Vitamin D3] Guaifenesin [Mucinex] 600 mg PO BID 09/24/19 Spironolactone 25 mg PO DAILY 11/20/19 Famotidine [Pepcid] 20 mg PO BID #30 tab 07/28/20 Paroxetine [Paxil] 20 mg PO DAILY 09/10/20 Prednisone 10 mg PO UD #30 tab 09/10/20 Lorazepam [Ativan] 0.5 mg PO TID PRN PRN 01/25/21 Surgical History: - - Patient is undergone lung volume reduction surgery in 2011. She has had breast biopsies in the past for benign disease. She is also undergone appendectomy. The patient is a AB 4. Psychiatric History: Anxiety Lives: Spouse/ Significant Other Smoking Status: Former smoker Alcohol: None Drugs: None - *Family History Maternal History Items: - - The patient's father at the age of 70 with a history of chronic obstructive pulmonary disease. Patient's mother at the age of 70 with a history of chronic obstructive pulmonary disease. Paternal History Items: COPD Review of Systems Constitutional: Reports: Fatigue. Denies: Chills, Fever, Weight Change HEENT: Denies: Head Aches, Sinus Congestion, Sinus Drainage Cardiovascular: Reports: Chest Pain, Edema. Denies: Palpitations Respiratory: Reports: Cough - Mild nonproductive, Pleuritic Pain, Shortness of Breath, Shortness of breath at rest. Denies: Sputum production Gastrointestinal: Denies: Abdominal Pain, Nausea, Vomiting Genitourinary: Denies: Dysuria Musculoskeletal: Denies: Joint Pain, Joint Tenderness Skin: Denies: Rash, Wounds Neurological: Denies: Numbness, Tingling, Focal weakness Psychiatric: Reports: Anxiety. Denies: Depression, Homicidal Ideations, Suicidal Ideations Hematologic/ Lymphatic: Denies: Easy Bruising, Easy Bleeding VTE Information - Inpt Only VTE Present on Admission: No VTE Mechan Device Prophylaxis: None VTE Pharm Prophylaxis ordered?: Yes Patient Problems: Active and Suspected Problems Acute respiratory failure (Acute) COPD exacerbation (Acute) Atypical chest pain (Acute) - Physical Exam Vitals/I&O's: Vital Signs Temp Pulse Resp BP Pulse Ox 96.4 F L 103 H 19 H 162/55 H 96 01/25/21 00:27 01/25/21 01:37 01/25/21 01:37 01/25/21 00:56 01/25/21 01:37 Oxygen Flow Rate (L/min) 3 Oxygen Delivery Method Nasal Cannula Weight: 190 lb 14.725 oz Body Mass Index (BMI) 32.8 General: Alert, Oriented x3, Cooperative HEENT: Atraumatic, PERRLA, EOMI, Normocephalic Neck: Supple, No JVD, Negative Carotid Bruits Lungs: Diminished, Short of Breath, Tachypneic, Wheezes Cardiovascular: Regular Rhythm, Normal S1, Normal S2, No murmurs, Tachycardic Abdomen: Bowel Sounds Present, Soft, Non Tender Extremities: No edema, Capillary Refill Less than 3 Seconds, Edema - 1-2+ pitting Skin: No rashes, No breakdown Musculoskeletal: No Tenderness to Palpation of Joints or Extremities Neurological: Cranial nerves II-XII grossly intact Psych/Mental Status: Appropriate, Anxious, Restless Microbiology Past 72 Hours 01/25/21 01:07 Mucosa - Nasopharyngeal Influenza Types A,B Direct FA (ALIYAH) - Final 01/25/21 01:07 Mucosa - Nose SARS-CoV-2 Antigen (Rapid) - Final Laboratory Results 01/25/21 00:27: WBC 21.3 H, RBC 4.60, Hgb 14.3, Hct 44.3, MCV 96.3, MCH 31.1, MCHC 32.3, RDW Std Deviation 43.6, RDW Coeff of Ashley 12.2, Plt Count 318, MPV 9.4, Immature Gran % (Auto) 0.700, Neut % (Auto) 80.1 H, Lymph % (Auto) 7.8 L, [place] % (Auto) 10.8 H, Eos % (Auto) 0.4, Baso % (Auto) 0.2, Absolute Neuts (auto) 17.1 H, Absolute Lymphs (auto) 1.67, Nucleated RBC % 0, Diff Path Review February01/25/21 00:27: Sodium 137, Potassium 4.0, Chloride 96 L, Carbon Dioxide 41.0 H, Anion Gap 0 L, BUN 20 H, Creatinine 1.03 H, Estim Creat Clear Calc 42.01, Est GFR (MDRD) Af Amer 68, Est GFR (MDRD) Non-Af 56 L, BUN/Creatinine Ratio 19.4, Glucose 113 H, Calcium 9.3, Troponin I < 0.015 01/25/21 00:52: B-Natriuretic Peptide 296.9 H Assessment/Plan All Active Problems Nonhealing ulcer of right lower extremity with fat layer exposed (Acute) Acute respiratory failure (Acute) COPD exacerbation (Acute) Atypical chest pain (Acute) Ulcer of left lower extremity with fat layer exposed (Resolved) 1. Acute respiratory failure secondary to COPD exacerbation -Will admit to PCU. -BiPAP at at bedtime and as needed, current settings 13/7, rate of 12 FiO2 30%. -Nasal cannula O2 ordered per protocol, 3 L nasal cannula home O2. -ABG ordered. -IV Solu-Medrol ordered, IV Levaquin, and ipratropium nebulizers ordered. -Will trend CBC and BMP. 2. Atypical chest pain -Will trend cardiac enzymes overnight. -Cardiac monitoring. -As needed nitro ordered. 3. CHF -BNP mildly elevated to 96.9, 1-2+ pitting edema to bilateral lower extremities. Will continue Lasix. 4. Hypertension -Patient mildly hypertensive in the ER, 162/55. -Continue home medication regimen. -As needed hydralazine ordered. 5. Hyperlipidemia -Patient not currently on medication, will obtain lipid panel in a.m. 6. History of smoking 7. Obesity -Lifestyle modifications discussed DVT prophylaxis-SCDs and subcu Lovenox This patient was seen by MAXWELL Enciso under the supervision of Dr. Stover. <Alex Stover - Last Filed: 01/25/21 03:15> History of Present Illness The patient is a 75 year old F [] Past Medical History Allergies albuterol Allergy (Verified 09/10/20 13:38) Shortness of breath belladonna alkaloids [Belladonna Alkaloids] Allergy (Verified 01/25/21 00:24) Rash lisinopril Allergy (Verified 01/25/21 00:24) Angioedema phenobarbital Allergy (Verified 01/25/21 00:24) Rash doxazosin mesylate [From Cardura] Adverse Reaction (Verified 01/25/21 00:24) PT UNSURE OF REACTION - Physical Exam Vitals/I&O's: Vital Signs Temp Pulse Resp BP Pulse Ox 97.8 F 99 26 H 180/64 H 97 01/25/21 03:00 01/25/21 03:00 01/25/21 03:00 01/25/21 03:00 01/25/21 03:00 Oxygen Flow Rate (L/min) 3 Oxygen Delivery Method Bi-pap Weight: 190 lb 14.725 oz Body Mass Index (BMI) 32.8 Microbiology Past 72 Hours 01/25/21 01:07 Mucosa - Nasopharyngeal Influenza Types A,B Direct FA (ALIYAH) - Final 01/25/21 01:07 Mucosa - Nose SARS-CoV-2 Antigen (Rapid) - Final Laboratory Results 01/25/21 00:27: WBC 21.3 H, RBC 4.60, Hgb 14.3, Hct 44.3, MCV 96.3, MCH 31.1, MCHC 32.3, RDW Std Deviation 43.6, RDW Coeff of Ashley 12.2, Plt Count 318, MPV 9.4, Immature Gran % (Auto) 0.700, Neut % (Auto) 80.1 H, Lymph % (Auto) 7.8 L, [place] % (Auto) 10.8 H, Eos % (Auto) 0.4, Baso % (Auto) 0.2, Absolute Neuts (auto) 17.1 H, Absolute Lymphs (auto) 1.67, Nucleated RBC % 0, Diff Path Review February01/25/21 00:27: Sodium 137, Potassium 4.0, Chloride 96 L, Carbon Dioxide 41.0 H, Anion Gap 0 L, BUN 20 H, Creatinine 1.03 H, Estim Creat Clear Calc 42.01, Est GFR (MDRD) Af Amer 68, Est GFR (MDRD) Non-Af 56 L, BUN/Creatinine Ratio 19.4, Glucose 113 H, Calcium 9.3, Troponin I < 0.015 01/25/21 00:52: B-Natriuretic Peptide 296.9 H Assessment/Plan seen and independently evaluated by myself and agree with above assessment and plan
[2021-01-25 03:16] LABS: Allen Test Positive; Base Excess 13 mmol/L (-2 to +2); Bicarbonate 39.5 mmol/L (22-26); Blood Gas Specimen Type ART; Comment 13/7; FI02 30; O2 Delivery Device BiPAP; PO2 76 mmHG (75-100); SITE L Radial; SO2 93 % (95-99); Total Carbon Dioxide 42 mmol/L; pCO2 78.9 mmHg (35-45); pH 7.31 (7.35-7.45)
--- NOTE | 2021-01-25 03:22 | CPS ---
critical abg handed to dr wilson
[2021-01-25] MEDS: levoFLOXacin IV 750 MG/150 ML BAG 100 MG IV (04:50)
[2021-01-25] MEDS: cloNIDine HCl 0.2 MG Tablet PO ×3 (04:55→21:37)
[2021-01-25] MEDS: 0.9% Saline Lock 10 ML Syringe IV ×3 (04:55→21:37)
[2021-01-25 06:37] LABS: Absolute Lymphocyte Count 0.22 X10^3/uL (0.83-4.51); Absolute Neutrophil Count 17.7 X10^3/uL (2.0-7.7); Basophil# 0.02 X10^3/uL; Basophil% 0.1 % (0-1); Differential Indicated SCAN CRITERIA MET; Hematocrit 40.9 % (37-47); Lymphocyte # 0.22 X10^3/ul (4.0); Lymphocyte % 1.2 % (19-41); Mean Corp Hgb Conc 31.8 g/dL (32-36); Mean Corpuscular Volume 97.4 fL (81-99); Mean Platelet Vol. 8.8 fl (6.2-12.0); Monocyte# 0.43 X10^3/uL; Monocyte% 2.3 % (0-10); NRBC Flagged by Analyzer 0 % (0-5); Neutrophil # 17.66 X10^3/uL (2.7-7.7); POSITIVE DIFFERENTIAL YES; Platelet Count 269 K/mm3 (150-450); RBC Distribution Width CV 12.3 % (11.6-14.6); RBC Distribution Width SD 43.8 fl (35.1-43.9); White Blood Count 18.4 K/mm3 (4.4-11.0)
[2021-01-25 07:05] LABS: Anion Gap 2 (5-15); BUN 19 mg/dL (7-18); BUN/Creat Ratio 22.1 RATIO (10-20); Calcium,Total 8.9 mg/dL (8.5-10.1); Chloride 96 mmol/L (98-107); Cholesterol 219 mg/dL (200); Creatinine, Serum 0.86 mg/dL (0.55-1.02); EST Glomerular Filtration Rate 69 mL/min (>60); Est Glom Filt Rate - Afr Amer 83 mL/min (>60); Estimated Creatinine Clearance 50.31 ml/min; Glucose 206 mg/dL (74-106); High Density Lipoprotein 90 mg/dL; Potassium 4.5 mmol/L (3.5-5.1); Sodium Level 134 mmol/L (136-145); Triglycerides 75 mg/dL; Very Low Density Lipoprotein 15 mg/dL (5-40)
--- NOTE | 2021-01-25 07:44 | ECHOCS_ITS ---
Reason For Study: CHF Procedure This was a 2D Doppler, Color Flow transthoracic echocardiogram. Technically difficult study due to patient sitting upright and on BIPAP as well as patients body habitus. The study was technically difficult. Contrast injection was performed. Exam performed portable in patient room. Left Ventricle Based upon the 2D echocardiographic and contrast enhanced images obtained there appears to be grossly normal left ventricular size, wall motion, and systolic function. The estimated ejection fraction is 75 %. Unable to assess diastolic dysfunction. Right Ventricle Normal RV size. Normal systolic function. Atria The left atrium is mildly enlarged. Normal right atrium. No doppler evidence for ASD. Mitral Valve There is no mitral annular calcification. Normal mitral valve. Trivial mitral valve insufficiency. Tricuspid Valve The tricuspid valve is not well visualized. Aortic Valve The aortic valve is not well visualized. Mild focal aortic valve calcification. Pulmonic Valve The pulmonic valve is not well visualized. Great Vessels The aortic root is not well visualized. Pericardium/Pleural No pericardial effusion. Epicardial fat. Medication Diluted definity 3ml given slow IV push to enhance endocardial definition. MMode/2D Measurements & Calculations LAV(MOD-bp): 41.7 ml LA A4 area: 14.8 cm2 LAV(MOD-bp) Indexed: 21.9 ml/m2 LAV(MOD-sp2): 56.9 ml LAV(MOD-sp4): 30.2 ml Time Measurements MV dec time: 0.15 sec Doppler Measurements & Calculations MV E max nancy: 47.5 cm/sec MV V2 max: 111.9 cm/sec MV P1/2t max nancy: 90.6 cm/sec MV A max nancy: 88.1 cm/sec MV max P.0 mmHg MV P1/2t: 65.1 msec MV E/A: 0.54 MV V2 mean: 71.1 cm/sec MV dec slope: 407.7 cm/sec2 MV mean P.3 mmHg MV V2 VTI: 22.2 cm MVA(P1/2t): 3.4 cm2 Ao V2 max: 127.8 cm/sec LV V1 max: 128.6 cm/sec Ao max P.5 mmHg LV V1 max P.6 mmHg ECHO/Echo Complete W/ Contrast Interpretation Summary The study was technically difficult. Contrast injection was performed. Based upon the 2D echocardiographic and contrast enhanced images obtained there appears to be grossly normal left ventricular size, wall motion, and systolic function. The estimated ejection fraction is 75 %. The left atrium is mildly enlarged. Trivial mitral valve insufficiency. Mild focal aortic valve calcification. Epicardial fat. Unable to assess diastolic dysfunction. Ordering Physician: Carolyne Gregg Referring Physician: Mandi Canales M.D. Performed By: Jose Alfredo Medina RCS
[2021-01-25] MEDS: Enoxaparin 40 MG/0.4 ML Syringe SC (08:36)
[2021-01-25] MEDS: Cholecalciferol (VIT D3) 25 MCG TABLET (1,000 UNITS) 50 MCG PO (08:37)
[2021-01-25] MEDS: Furosemide 80 MG Tablet PO (08:37)
[2021-01-25] MEDS: Famotidine 20 MG Tablet PO ×2 (08:37→21:37)
[2021-01-25] MEDS: guaiFENesin 600 MG Tablet PO ×2 (08:37→21:37)
[2021-01-25] MEDS: Multivitamins,Ther W-Minerals Tablet 1 TABLET PO (08:37)
[2021-01-25] MEDS: Spironolactone 25 MG Tablet PO (08:37)
[2021-01-25] MEDS: Paroxetine 20 MG Tablet PO (08:37)
[2021-01-25] MEDS: Verapamil SR 240 MG Tablet 120 MG PO ×2 (08:37→21:37)
[2021-01-25] MEDS: Potassium Chloride Oral Tablet 20 MEQ PO (08:38)
[2021-01-25 11:23] LABS: Pathologist Review Reviewed
--- NOTE | 2021-01-25 12:40 | CASEMGMT ---
YUSEF OSMAN assessment: Face to Face with patient for initial transition planning/care coordination assessment. RN CM introduced self and role at [facility], pt voices understanding and consents to assessment. Pt is sitting up in bed with continuous bipap in place with tachypnea/accessory muscle use. Pt is A/Ox4 and answers questions appropriately. Care providers, pharmacy, and demographics verified. Presentation: SOB/sternal CP since Sunday. Pt reports increased coughing/back pain Admitting dx: COPD exac PCP: Ally Specialists: lashell Villela [facility]erred [facility]acy[facility] Insurance: [facility] A/B, [employer] Prescription Benefit: [facility] MCR D Living Will/HPOA: Pt states has LW/HPOA and is aware that only the LW is on file at [facility]. Pt states that her is to bring in her HPOA. LNOK: Brayden Jenkins, Living Arrangements: Pt states lives with in 1 story home with 3 steps in and states assists with ADL's due to her SOB. Transportation: Pt states drives and states no transportation concerns. DME/HHC: Pt states has the following DME: w/c, walker, grab bars, shower chair, bipap, and 3L home oxygen but cannot remember name of DME company. Call to Dr. Villela's office and they are unable to provided DME company name. CM to follow with regarding DME company. Pt states no hx of HHC or SNF. Pt states no concerns with going home at time of discharge. Pt is retired. Pt states does not smoke cigarettes or drink ETOH. Pt states no further concerns/needs. CM to follow for increased home oxygen need or any further discharge planning/needs. Advised pt to ask for CM if any further questions/concerns/needs arise, voices understanding. Pt Goal: Home Plan: Home, pending increased home oxygen need. S[place]en YUSEF OSMAN
--- NOTE | 2021-01-25 12:52 | NURSING ---
this RN taking over care at this time
--- NOTE | 2021-01-25 13:08 | PN_ITS ---
Patient Problems: Active and Suspected Problems COPD exacerbation (Acute) Atypical chest pain (Acute) Acute hypercapnic respiratory failure (Acute) Subjective: Patient seen and examined. She was admitted with a complaint of shortness of breath, and is being managed for acute COPD exacerbation. Patient was on BIPAP at time of review. She complained of chest pain, which she said was due to stress fractures from chronic prednisone use. She still felt short of breath, though she denied any palpitations, dizziness, nausea, vomiting or diarrhea. Review of systems is otherwise negative. She says she follows Dr Villela for her COPD. She thinks she has heart failure, but doesnt follow any curriculum manager for this. Vitals/I&O's: Vital Signs Temp Pulse Resp BP Pulse Ox 98.5 F 92 16 160/74 H 95 01/25/21 13:00 01/25/21 13:00 01/25/21 13:00 01/25/21 13:00 01/25/21 13:00 Oxygen Flow Rate (L/min) 4 Oxygen Delivery Method Bi-pap Weight: 187 lb 15.987 oz Body Mass Index (BMI) 32.2 Intake and Output for Last 24 Hours 01/23/21 01/24/21 01/25/21 23:59 23:59 23:59 Intake Total 191.25 / 191.25 Output Total 500 / 500 Balance -308.75 / -308.75 General: Alert, Oriented x3, Cooperative, No apparent distress HEENT: Atraumatic, PERRLA, EOMI, Normocephalic Oral: Dry Mucosa Neck: Supple, No JVD, Negative Carotid Bruits Lungs: - - on BIPAP. Markedly diminished breath sounds bibasally, no wheezes or crackles. Cardiovascular: Regular rate, Regular Rhythm, Normal S1, Normal S2, No murmurs Abdomen: Bowel Sounds Present, Soft, Non Tender, Non-Distended, No Hepato- splenomegaly Extremities: No clubbing, No cyanosis, No edema, Capillary Refill Less than 3 Seconds Skin: No rashes, No breakdown Musculoskeletal: No Tenderness to Palpation of Joints or Extremities Lymphatic: No Cervical, Supraclavicular, or Inguinal Adenopathy Neurological: Cranial nerves II-XII grossly intact, Neuro grossly intact, Motor Exam 5/5 strength throughout Psych/Mental Status: Normal Affect, Appropriate, Alert and oriented to time, place, person, mood and affect Microbiology Past 72 Hours 01/25/21 01:07 Mucosa - Nasopharyngeal Influenza Types A,B Direct FA (ALIYAH) - Final 01/25/21 01:07 Mucosa - Nose SARS-CoV-2 Antigen (Rapid) - Final Laboratory Results 01/25/21 00:27: WBC 21.3 H, RBC 4.60, Hgb 14.3, Hct 44.3, MCV 96.3, MCH 31.1, MCHC 32.3, RDW Std Deviation 43.6, RDW Coeff of Ashley 12.2, Plt Count 318, MPV 9.4, Immature Gran % (Auto) 0.700, Neut % (Auto) 80.1 H, Lymph % (Auto) 7.8 L, Camas % (Auto) 10.8 H, Eos % (Auto) 0.4, Baso % (Auto) 0.2, Absolute Neuts (auto) 17.1 H, Absolute Lymphs (auto) 1.67, Nucleated RBC % 0, Diff Path Review Reviewed 01/25/21 00:27: Sodium 137, Potassium 4.0, Chloride 96 L, Carbon Dioxide 41.0 H, Anion Gap 0 L, BUN 20 H, Creatinine 1.03 H, Estim Creat Clear Calc 42.01, Est GFR (MDRD) Af Amer 68, Est GFR (MDRD) Non-Af 56 L, BUN/Creatinine Ratio 19.4, Glucose 113 H, Calcium 9.3, Troponin I < 0.015 01/25/21 00:52: B-Natriuretic Peptide 296.9 H 01/25/21 03:11: Specimen Type ART, Sample Site L Radial, pH 7.31 L, Bicarbonate Actual 39.5 H, Total CO2 42, Base Excess 13 H, O2 Saturation 93 L, O2 % 30, ABG pCO2 78.9 H*, ABG pO2 76, Paul Test Positive, O2 Delivery Device BiPAP, Crit Call To/Read Back Yes, Blood Gas Notified Whom , Clinical Comments 03/0501/25/21 04:22: Troponin I < 0.015 01/25/21 06:28: Sodium 134 L, Potassium 4.5, Chloride 96 L, Carbon Dioxide 36.0 H, Anion Gap 2 L, BUN 19 H, Creatinine 0.86, Estim Creat Clear Calc 50.31, Est GFR (MDRD) Af Amer 83, Est GFR (MDRD) Non-Af 69, BUN/Creatinine Ratio 22.1 H, Glucose 206 H, Calcium 8.9, Troponin I < 0.015, Triglycerides 75, Cholesterol 219 H, LDL Cholesterol 114, VLDL Cholesterol 15, HDL Cholesterol 90 01/25/21 06:28: WBC 18.4 H, RBC 4.20, Hgb 13.0, Hct 40.9, MCV 97.4, MCH 31.0, MCHC 31.8 L, RDW Std Deviation 43.8, RDW Coeff of Ashley 12.3, Plt Count 269, MPV 8.8, Immature Gran % (Auto) 0.400, Neut % (Auto) 96.0 H, Lymph % (Auto) 1.2 L, Camas % (Auto) 2.3, Eos % (Auto) 0.0, Baso % (Auto) 0.1, Absolute Neuts (auto) 17.7 H, Absolute Lymphs (auto) 0.22 L, Nucleated RBC % 0 Diagnostic Data Chest X-Ray 01/25/21 00:59 IMPRESSION: Mild left-sided pleural effusion. Bilateral basilar atelectasis with crowding of vessels. Questionable postoperative changes through the bilateral mid upper lung barone. Electronically Signed: Lidia Rolle MD at 1:19 EDT , Service support , Current Medications Acetaminophen (Acetaminophen 325 Mg Tablet) 650 mg PO Q6H PRN PRN PRN Reason: Pain Score 1-10/Temp > 100.7 F Cholecalciferol (Cholecalciferol (Vit D3) 25 Mcg Tablet (1,000 Units)) 50 mcg PO DAILY [facility] Last Admin: 01/25/21 08:37 Dose: 50 mcg Documented by: Clonidine (Clonidine Hcl 0.2 Mg Tablet) 0.2 mg PO TID [facility] Last Admin: 01/25/21 13:03 Dose: 0.2 mg Documented by: Enoxaparin Sodium (Enoxaparin 40 Mg/0.4 Ml Syringe) 40 mg SC DAILY [facility] Last Admin: 01/25/21 08:36 Dose: 40 mg Documented by: Famotidine (Famotidine 20 Mg Tablet) 20 mg PO BID [facility] Last Admin: 01/25/21 08:37 Dose: 20 mg Documented by: Furosemide (Furosemide 40 Mg/4 Ml Vial) 40 mg IV BID@1000,1800 [facility] Guaifenesin (Guaifenesin 10 Ml Udc (200mg/10ml)) 20 ml PO Q4H PRN PRN PRN Reason: COUGH Guaifenesin (Guaifenesin 600 Mg Tablet) 600 mg PO BID [facility] Last Admin: 01/25/21 08:37 Dose: 600 mg Documented by: Hydralazine HCl (Hydralazine 20 Mg/Ml Vial) 10 mg IV Q4H PRN PRN PRN Reason: SBP > 160 Levofloxacin (Levaquin Iv) 750 mg in 150 mls @ 100 mls/hr IV Q48@2200 [facility] Last Infusion: 01/25/21 10:48 Dose: Infused Documented by: Sodium Chloride () 250 mls @ 15 mls/hr IV .[id number] PRN PRN Reason: Additional IVPB Infusion Last Infusion: 01/25/21 06:14 Dose: 15 mls/hr Documented by: Ipratropium Baldwin (Ipratropium 0.5 Mg/2.5 Ml Solution) 0.5 mg INHALATION Q4H.RT [facility] Last Admin: 01/25/21 10:57 Dose: 0.5 mg Documented by: Lorazepam (Lorazepam 0.5 Mg Tablet) 0.5 mg PO TID PRN PRN PRN Reason: ANXIETY Melatonin (Melatonin 3 Mg Tablet) 3 mg PO QHS PRN PRN PRN Reason: INSOMNIA Methylprednisolone (Methylprednisolone 40 Mg/Ml Vial) 40 mg IV Q8 [facility] Last Admin: 01/25/21 13:03 Dose: 40 mg Documented by: Morphine Sulfate (Morphine 2 Mg/Ml Syringe) 2 mg IV Q3H PRN PRN PRN Reason: Pain Score 6-10 Multivitamins/Minerals (Multivitamins,Ther W-Minerals Tablet) [facility] Admin: 01/25/21 08:37 Dose: 1 tablet Documented by: Nitroglycerin (Nitroglycerin (Inpatient Use) 0.4 Mg Tab.Subl) 0.4 mg SL Q5M PRN PRN Reason: CARDIAC/CHEST PAIN Ondansetron HCl (Ondansetron 4 Mg/2 Ml Vial) 4 mg IV Q8H PRN PRN PRN Reason: NAUSEA/VOMITING Oxycodone HCl (Oxycodone 5 Mg Tablet) 10 mg PO Q4H PRN PRN PRN Reason: Pain Score 4-5 Paroxetine HCl (Paroxetine 20 Mg Tablet) 20 mg PO DAILY [facility] Last Admin: 01/25/21 08:37 Dose: 20 mg Documented by: Potassium Chloride (Potassium Chloride Oral Tablet 20 Meq) 20 meq PO DAILYCM [facility] Last Admin: 01/25/21 08:38 Dose: 20 meq Documented by: Sodium Chloride (0.9% Saline Lock 10 Ml Syringe) 10 - 40 ml IV UD PRN PRN Reason: SALINE FLUSH Last Admin: 01/25/21 04:55 Dose: 10 ml Documented by: Spironolactone (Spironolactone 25 Mg Tablet) 25 mg PO DAILY [facility] Last Admin: 01/25/21 08:37 Dose: 25 mg Documented by: Verapamil HCl (Verapamil Sr 240 Mg Tablet) 120 mg PO Q12 [facility] Last Admin: 01/25/21 08:37 Dose: 120 mg Documented by: STROKE Vital Signs/Narrative: Vital Signs Temp Pulse Resp BP Pulse Ox 01/25/21 13:00 98.5 F 92 16 160/74 H 95 01/25/21 12:40 98 01/25/21 12:35 83 22 H 93 01/25/21 11:09 77 21 H Medical Necessity - Tobacco Use Smoking Status: Former smoker Assessment/Plan All Active Problems Nonhealing ulcer of right lower extremity with fat layer exposed (Acute) COPD exacerbation (Acute) Atypical chest pain (Acute) Acute hypercapnic respiratory failure (Acute) Ulcer of left lower extremity with fat layer exposed (Resolved) #Acute hypoxic respiratory failure due to COPD exacerbation and heart failure of unknown EF * on breathing treatments with bronchodilators * on BIPAP. Wean BIPAP as tolerated, * on IV solumedrol. also on IV lasix * monitor intake and output * 2D echo ordered * on IV levofloxacin * pulmonology consulted * #COPD exacerbation: as above #Acute on chronic HF of unknown EF * as above. also on spironolactone #Hypertension: continue current BP meds of spironolactone and verapamil. #CHest pain: * musculoskeletal in nature. 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 troponins x 2 were negative. #Hyperlipidemia: not on any meds #History of smoking: stable DVT prophylaxis: lovenox 1 Inpatient E&M: 25173 Subs Hosp L3
[2021-01-25] MEDS: Furosemide 40 MG/4 ML Vial IV (17:02)
[2021-01-25] MEDS: LORazepam 0.5 MG Tablet PO (19:00)
[2021-01-26] VITALS (15 sets, daily range): BP systolic 128–165; BP diastolic 74–97; PULSE 64–104; RESP 12–22; TEMP 35.9–37.1; O2SAT 94–100
[2021-01-26] MEDS: LORazepam 0.5 MG Tablet PO ×3 (03:01→23:27)
[2021-01-26] MEDS: cloNIDine HCl 0.2 MG Tablet PO ×3 (05:28→21:04)
[2021-01-26] MEDS: 0.9% Saline Lock 10 ML Syringe IV ×3 (05:29→17:45)
--- NOTE | 2021-01-26 05:50 | CON.PCM_ITS ---
Reason for Consult Date of Consultation: 01/26/21 Reason for Consultation: Acute hypoxemic respiratory failure, COPD History of Present Illness: The patient is a 75-year-old female, with a history as outlined below, who presented to the emergency department on January 25 with complaints of shortness of breath. The patient has a history of end-stage COPD, having been managed by Dr. Villela at [facility]. She is status post lung volume reduction surgery in 2011. The patient was last noted to have an FEV1 of 21% of predicted. She is currently on maximum therapy for her COPD with scheduled Symbicort and Spiriva. She reports that she utilizes Xopenex typically 2 times per day. She does utilize [place] [facility] oxygen at 3 to 4 L/min in her home environment. In addition, she does utilize a CPAP on a nightly basis, for which she reports compliance. The patient reported that she was last seen by her clinical laboratory aide in December and at that time was reportedly told that she likely had 6 months or less to live. On presentation to the emergency department, the patient was noted to be afebrile and hemodynamically stable. She was maintaining appropriate oxygen saturations on 3 L/min via nasal cannula. Laboratory evaluation revealed an elevated white blood cell count to 21,000. Chemistry profile was notable for a bicarbonate of 41 and creatinine of 1.03. Troponin was negative. BNP was elevated to 296. Chest x-ray revealed a small left-sided pleural effusion and basilar atelectasis. The patient was started on scheduled bronchodilators, antibiotics and steroids. She was admitted to the progressive care unit for further management. Surface echocardiogram completed on January 25 revealed an ejection fraction of 75%. Diastolic function was unable to be assessed. Past Medical History Past Medical History (Chronic Problems): Chronic Problems Venous insufficiency (Chronic) Delayed wound healing (Chronic) History of smoking (Chronic) Chronic respiratory failure (Chronic) Obesity (Chronic) COPD (chronic obstructive pulmonary disease) (Chronic) Steroid dependent (Chronic) Leg swelling (Chronic) Hyperlipidemia (Chronic) Hypertension (Chronic) CHF (congestive heart failure) (Chronic) Hx TIA/stroke w/o resid (Chronic) Edema leg (Chronic) Leg edema, left (Chronic) Peripheral vascular disease (Chronic) Benign hypertension (Chronic) Allergies albuterol Allergy (Verified 09/10/20 13:38) Shortness of breath belladonna alkaloids [Belladonna Alkaloids] Allergy (Verified 01/25/21 00:24) Rash lisinopril Allergy (Verified 01/25/21 00:24) Angioedema phenobarbital Allergy (Verified 01/25/21 00:24) Rash doxazosin mesylate [From Cardura] Adverse Reaction (Verified 01/25/21 00:24) PT UNSURE OF REACTION Home Medications: Ambulatory Orders Medication Instructions Recorded Furosemide [Lasix] 80 mg PO BID 07/22/13 Multivit-Min/FA/Lycopene/Lut 1 each PO DAILY 07/22/13 [Centrum Silver Tablet] Verapamil HCl [Calan Sr] 120 mg PO Q12 07/22/13 Potassium Chloride Oral Tablet 20 meq PO DAILY 07/24/13 [K-Dur] Clonidine HCl [Catapres] 0.2 mg PO TID 02/25/14 Levalbuterol Tartrate [Xopenex Hfa 1 - 2 puff INHALATION 4X/DAY PRN 02/25/14 Inhaler] PRN Tiotropium [place] [Spiriva 18 MCG] 1 puff INHALATION DAILY 02/25/14 Cholecalciferol (Vitamin D3) 2,000 unit PO DAILY 09/24/19 [Vitamin D3] Guaifenesin [Mucinex] 600 mg PO BID 09/24/19 Spironolactone 25 mg PO DAILY 11/20/19 Famotidine [Pepcid] 20 mg PO BID #30 tab 07/28/20 Paroxetine [Paxil] 20 mg PO DAILY 09/10/20 Prednisone 10 mg PO UD #30 tab 09/10/20 Lorazepam [Ativan] 0.5 mg PO TID PRN PRN 01/25/21 Budesonide/Formoterol 160/4.5 2 puff INHALATION BID 01/26/21 [Symbicort 160/4.5 Mcg Inhaler (SP)] Surgical History: - - Patient is undergone lung volume reduction surgery in 2011. She has had breast biopsies in the past for benign disease. She is also undergone appendectomy. The patient is a AB 4. Psychiatric History: Anxiety Lives: Spouse/ Significant Other Smoking Status: Former smoker Alcohol: None Drugs: None - *Family History Maternal History Items: - - The patient's father at the age of 70 with a history of chronic obstructive pulmonary disease. Patient's mother at the age of 70 with a history of chronic obstructive pulmonary disease. Paternal History Items: COPD Review of Systems Constitutional: Denies: Chills, Fever Eyes: Denies: Blurred vision, Double vision HEENT: Denies: Head Aches, Sinus Congestion, Sinus Drainage Cardiovascular: Denies: Chest Pain, Palpitations Respiratory: Reports: Cough, Shortness of Breath Gastrointestinal: Denies: Abdominal Pain, Nausea, Vomiting Genitourinary: Denies: Dysuria Musculoskeletal: Reports: Back Pain Skin: Denies: Rash, Wounds Neurological: Denies: Numbness, Tingling, Focal weakness Psychiatric: Reports: Anxiety, Depression Hematologic/ Lymphatic: Denies: Easy Bruising, Easy Bleeding Patient Problems: Active and Suspected Problems COPD exacerbation (Acute) Atypical chest pain (Acute) Acute hypercapnic respiratory failure (Acute) Shortness of breath (Acute) acute on chronic Objective: The patient's most recent lab work, culture data and imaging studies have all been personally reviewed. Rapid influenza screen was negative. Rapid coronavirus antigen testing was negative. - Physical Exam Vitals/I&O's: Vital Signs Temp Pulse Resp BP Pulse Ox 98.8 F 70 15 158/74 H 97 01/26/21 03:20 01/26/21 05:17 01/26/21 05:17 01/26/21 03:20 01/26/21 05:17 Oxygen Flow Rate (L/min) 4 Oxygen Delivery Method Bi-pap Weight: 187 lb 13.341 oz Body Mass Index (BMI) 32.2 Intake and Output for Last 24 Hours 01/24/21 01/25/21 01/26/21 23:59 23:59 23:59 Intake Total 470.25 / 470.25 120 / 120 Output Total 1450 / 1450 250 / 250 Balance -979.75 / -979.75 -130 / -130 General: Alert, Cooperative, - - Currently maintaining appropriate oxygen saturations on 4 L/min via nasal cannula. Mild conversational dyspnea noted. HEENT: Atraumatic, PERRLA, Normocephalic Oral: No Gingival or Mucosal Lesions/ Ulcerations Neck: Supple, No Nodes, Trachea Midline Lungs: - - Globally diminished air movement bilaterally. Cardiovascular: Regular rate, Regular Rhythm Abdomen: Bowel Sounds Present, Soft, Non Tender, Obese Extremities: No clubbing, No cyanosis, No edema Skin: No breakdown Musculoskeletal: No Tenderness to Palpation of Joints or Extremities Lymphatic: No Cervical, Supraclavicular, or Inguinal Adenopathy Neurological: Cranial nerves II-XII grossly intact, Neuro grossly intact Psych/Mental Status: Alert and oriented to time, place, person, mood and affect Labs (Last 48 Hours) 01/25/21 01/25/21 01/25/21 00:27 00:27 00:52 WBC 21.3 H RBC 4.60 Hgb 14.3 Hct 44.3 MCV 96.3 MCH 31.1 MCHC 32.3 RDW Std Deviation 43.6 RDW Coeff of Ashley 12.2 Plt Count 318 MPV 9.4 Immature Gran % (Auto) 0.700 Neut % (Auto) 80.1 H Lymph % (Auto) 7.8 L [place] % (Auto) 10.8 H Eos % (Auto) 0.4 Baso % (Auto) 0.2 Absolute Neuts (auto) 17.1 H Absolute Lymphs (auto) 1.67 Nucleated RBC % 0 Diff Path Review Reviewed Specimen Type Sample Site pH Bicarbonate Actual Total CO2 Base Excess O2 Saturation O2 % ABG pCO2 ABG pO2 Paul Test O2 Delivery Device Crit Call To/Read Back Blood Gas Notified Whom Clinical Comments Sodium 137 Potassium 4.0 Chloride 96 L Carbon Dioxide 41.0 H Anion Gap 0 L BUN 20 H Creatinine 1.03 H Estim Creat Clear Calc 42.01 Est GFR (MDRD) Af Amer 68 Est GFR (MDRD) Non-Af 56 L BUN/Creatinine Ratio 19.4 Glucose 113 H Calcium 9.3 Troponin I < 0.015 B-Natriuretic Peptide 296.9 H Triglycerides Cholesterol LDL Cholesterol VLDL Cholesterol HDL Cholesterol 01/25/21 01/25/21 01/25/21 03:11 04:22 06:28 WBC RBC Hgb Hct MCV MCH MCHC RDW Std Deviation RDW Coeff of Ashley Plt Count MPV Immature Gran % (Auto) Neut % (Auto) Lymph % (Auto) [place] % (Auto) Eos % (Auto) Baso % (Auto) Absolute Neuts (auto) Absolute Lymphs (auto) Nucleated RBC % Diff Path Review Specimen Type ART Sample Site L Radial pH 7.31 L Bicarbonate Actual 39.5 H Total CO2 42 Base Excess 13 H O2 Saturation 93 L O2 % 30 ABG pCO2 78.9 H* ABG pO2 76 Paul Test Positive O2 Delivery Device BiPAP Crit Call To/Read Back Yes Blood Gas Notified Whom DR Clinical Comments 03/05 Sodium 134 L Potassium 4.5 Chloride 96 L Carbon Dioxide 36.0 H Anion Gap 2 L BUN 19 H Creatinine 0.86 Estim Creat Clear Calc 50.31 Est GFR (MDRD) Af Amer 83 Est GFR (MDRD) Non-Af 69 BUN/Creatinine Ratio 22.1 H Glucose 206 H Calcium 8.9 Troponin I < 0.015 < 0.015 B-Natriuretic Peptide Triglycerides 75 Cholesterol 219 H LDL Cholesterol 114 VLDL Cholesterol 15 HDL Cholesterol 90 01/25/21 06:28 WBC 18.4 H RBC 4.20 Hgb 13.0 Hct 40.9 MCV 97.4 MCH 31.0 MCHC 31.8 L RDW Std Deviation 43.8 RDW Coeff of Ashley 12.3 Plt Count 269 MPV 8.8 Immature Gran % (Auto) 0.400 Neut % (Auto) 96.0 H Lymph % (Auto) 1.2 L [place] % (Auto) 2.3 Eos % (Auto) 0.0 Baso % (Auto) 0.1 Absolute Neuts (auto) 17.7 H Absolute Lymphs (auto) 0.22 L Nucleated RBC % 0 Diff Path Review Specimen Type Sample Site pH Bicarbonate Actual Total CO2 Base Excess O2 Saturation O2 % ABG pCO2 ABG pO2 Paul Test O2 Delivery Device Crit Call To/Read Back Blood Gas Notified Whom Clinical Comments Sodium Potassium Chloride Carbon Dioxide Anion Gap BUN Creatinine Estim Creat Clear Calc Est GFR (MDRD) Af Amer Est GFR (MDRD) Non-Af BUN/Creatinine Ratio Glucose Calcium Troponin I B-Natriuretic Peptide Triglycerides Cholesterol LDL Cholesterol VLDL Cholesterol HDL Cholesterol Microbiology 01/25/21 01:07 Mucosa - Nasopharyngeal Influenza Types A,B Direct FA (ALIYAH) - Final 01/25/21 01:07 Mucosa - Nose SARS-CoV-2 Antigen (Rapid) - Final Clinical Impression(s) from Imaging Studies Chest X-Ray 01/25/21 00:59 IMPRESSION: Mild left-sided pleural effusion. Bilateral basilar atelectasis with crowding of vessels. Questionable postoperative changes through the bilateral mid upper lung barone. Electronically Signed: Lidia Rolle MD at 1:19 EDT , Service support , Echocardiogram 01/25/21 07:44 Interpretation Summary The study was technically difficult. Contrast injection was performed. Based upon the 2D echocardiographic and contrast enhanced images obtained there appears to be grossly normal left ventricular size, wall motion, and systolic function. The estimated ejection fraction is 75 %. The left atrium is mildly enlarged. Trivial mitral valve insufficiency. Mild focal aortic valve calcification. Epicardial fat. Unable to assess diastolic dysfunction. Ordering Physician: Carolyne Gregg Referring Physician: Mandi Canlaes M.D. Performed By: Jos eAlfredo Medina RCS Current Medications Acetaminophen (Acetaminophen 325 Mg Tablet) 650 mg PO Q6H PRN PRN PRN Reason: Pain Score 1-10/Temp > 100.7 F Cholecalciferol (Cholecalciferol (Vit D3) 25 Mcg Tablet (1,000 Units)) 50 mcg PO DAILY [facility] Last Admin: 01/25/21 08:37 Dose: 50 mcg Documented by: Clonidine (Clonidine Hcl 0.2 Mg Tablet) 0.2 mg PO TID [facility] Last Admin: 01/26/21 05:28 Dose: 0.2 mg Documented by: Enoxaparin Sodium (Enoxaparin 40 Mg/0.4 Ml Syringe) 40 mg SC DAILY [facility] Last Admin: 01/25/21 08:36 Dose: 40 mg Documented by: Famotidine (Famotidine 20 Mg Tablet) 20 mg PO BID [facility] Last Admin: 01/25/21 21:37 Dose: 20 mg Documented by: Furosemide (Furosemide 40 Mg/4 Ml Vial) 40 mg IV BID@1000,1800 [facility] Last Admin: 01/25/21 17:02 Dose: 40 mg Documented by: Guaifenesin (Guaifenesin 10 Ml Udc (200mg/10ml)) 20 ml PO Q4H PRN PRN PRN Reason: COUGH Guaifenesin (Guaifenesin 600 Mg Tablet) 600 mg PO BID [facility] Last Admin: 01/25/21 21:37 Dose: 600 mg Documented by: Hydralazine HCl (Hydralazine 20 Mg/Ml Vial) 10 mg IV Q4H PRN PRN PRN Reason: SBP > 160 Levofloxacin (Levaquin Iv) 750 mg in 150 mls @ 100 mls/hr IV Q48@2200 [facility] Last Infusion: 01/25/21 10:48 Dose: Infused Documented by: Sodium Chloride () 250 mls @ 15 mls/hr IV .[id number] PRN PRN Reason: Additional IVPB Infusion Last Infusion: 01/25/21 12:50 Dose: 0 mls/hr Documented by: Ipratropium [place] (Ipratropium 0.5 Mg/2.5 Ml Solution) 0.5 mg INHALATION Q4H.RT [facility] Last Admin: 01/25/21 18:44 Dose: 0.5 mg Documented by: Lorazepam (Lorazepam 0.5 Mg Tablet) 0.5 mg PO TID PRN PRN PRN Reason: ANXIETY Last Admin: 01/26/21 03:01 Dose: 0.5 mg Documented by: Melatonin (Melatonin 3 Mg Tablet) 3 mg PO QHS PRN PRN PRN Reason: INSOMNIA Methylprednisolone (Methylprednisolone 40 Mg/Ml Vial) 40 mg IV Q8 [facility] Last Admin: 01/26/21 05:29 Dose: 40 mg Documented by: Morphine Sulfate (Morphine 2 Mg/Ml Syringe) 2 mg IV Q3H PRN PRN PRN Reason: Pain Score 6-10 Multivitamins/Minerals (Multivitamins,Ther W-Minerals Tablet) [facility] Last Admin: 01/25/21 08:37 Dose: 1 tablet Documented by: Nitroglycerin (Nitroglycerin (Inpatient Use) 0.4 Mg Tab.Subl) 0.4 mg SL Q5M PRN PRN Reason: CARDIAC/CHEST PAIN Ondansetron HCl (Ondansetron 4 Mg/2 Ml Vial) 4 mg IV Q8H PRN PRN PRN Reason: NAUSEA/VOMITING Oxycodone HCl (Oxycodone 5 Mg Tablet) 10 mg PO Q4H PRN PRN PRN Reason: Pain Score 4-5 Paroxetine HCl (Paroxetine 20 Mg Tablet) 20 mg PO DAILY [facility] Last Admin: 01/25/21 08:37 Dose: 20 mg Documented by: Potassium Chloride (Potassium Chloride Oral Tablet 20 Meq) 20 meq PO DAILYCM [facility] Last Admin: 01/25/21 08:38 Dose: 20 meq Documented by: Sodium Chloride (0.9% Saline Lock 10 Ml Syringe) 10 - 40 ml IV UD PRN PRN Reason: SALINE FLUSH Last Admin: 01/26/21 05:29 Dose: 10 ml Documented by: Spironolactone (Spironolactone 25 Mg Tablet) 25 mg PO DAILY [facility] Last Admin: 01/25/21 08:37 Dose: 25 mg Documented by: Verapamil HCl (Verapamil Sr 240 Mg Tablet) 120 mg PO Q12 [facility] Last Admin: 01/25/21 21:37 Dose: 120 mg Documented by: Assessment/Plan All Active Problems Nonhealing ulcer of right lower extremity with fat layer exposed (Acute) COPD exacerbation (Acute) Atypical chest pain (Acute) Acute hypercapnic respiratory failure (Acute) Shortness of breath (Acute) Ulcer of left lower extremity with fat layer exposed (Resolved) RECOMMENDATIONS: 1. Agree with continuing antibiotics, scheduled bronchodilator therapy and steroids. 2. Gentle diuresis as tolerated by hemodynamics and renal function. 3. Continue BiPAP therapy, at a minimum, with naps and nightly. 4. Wean supplemental oxygen to maintain saturations greater than 88%. 5. The patient is appropriate for evaluation by palliative care with consideration for the initiation of hospice care services. IMPRESSIONS: 1. Acute on chronic combined respiratory failure/COPD with exacerbation The patient has known end-stage COPD and chronic hypoxemic respiratory failure with her baseline 3 to 4 L/min oxygen requirement. She is currently being followed by Dr. Villela at [facility]. The patient remains symptomatic despite being on maximum for COPD therapy. At the present time, I agree with continuing antimicrobials with plans to complete a 7-day treatment course along with scheduled bronchodilators and IV steroids. Given that the patient does have baseline shortness of breath and anxiety despite bronchodilator therapy, she would be a good candidate for palliative care referral. In addition, during her last office visit with her primary clinical laboratory aide, she was apparently told that she likely had 6 months or less to live. 2. Heart failure with preserved ejection fraction Continue gentle diuresis as tolerated by hemodynamics and renal function. 3. Hypertension/GERD/depression/anxiety Complicates care, management, recovery and prognosis. Continue home medications as indicated. This note was generated with WeShowation software. It may contain incorrect words, spelling, and punctuation that were not noted in checking the note before signing. Inpatient E&M: 49398 Init Hosp L3
--- NOTE | 2021-01-26 08:01 | PCM.PN.HOSP ---
Patient Problems: Active and Suspected Problems COPD exacerbation (Acute) Atypical chest pain (Acute) Acute hypercapnic respiratory failure (Acute) Subjective: Patient seen and examined. She remains on BIPAP intermittently. She had an uneventful night otherwise, and review of systems is otherwise negative. Pulmonology on board. She is now on 4L of oxygen this morning. Vitals/I&O's: Vital Signs Temp Pulse Resp BP Pulse Ox 98.8 F 84 15 158/74 H 99 01/26/21 03:20 01/26/21 07:13 01/26/21 05:17 01/26/21 03:20 01/26/21 07:15 Oxygen Flow Rate (L/min) 4 Oxygen Delivery Method Nasal Cannula Weight: 187 lb 13.341 oz Body Mass Index (BMI) 32.2 Intake and Output for Last 24 Hours 01/24/21 01/25/21 01/26/21 23:59 23:59 23:59 Intake Total 470.25 / 470.25 120 / 120 Output Total 1450 / 1450 250 / 250 Balance -979.75 / -979.75 -130 / -130 General: Alert, Oriented x3, Cooperative, No apparent distress HEENT: Atraumatic, PERRLA, EOMI, Normocephalic Oral: Dry Mucosa Neck: Supple, No JVD, Negative Carotid Bruits Lungs: Markedly diminished breath sounds bibasally, no wheezes or crackles. on 4L of oxygen by nasal canula Cardiovascular: Regular rate, Regular Rhythm, Normal S1, Normal S2, No murmurs Abdomen: Bowel Sounds Present, Soft, Non Tender, Non-Distended, No Hepato-splenomegaly Extremities: No clubbing, No cyanosis, No edema, Capillary Refill Less than 3 Seconds Skin: No rashes, No breakdown Musculoskeletal: No Tenderness to Palpation of Joints or Extremities Lymphatic: No Cervical, Supraclavicular, or Inguinal Adenopathy Neurological: Cranial nerves II-XII grossly intact, Neuro grossly intact, Motor Exam 5/5 strength throughout Psych/Mental Status: Normal Affect, Appropriate, Alert and oriented to time, place, person, mood and affect Microbiology Past 72 Hours 01/25/21 01:07 Mucosa - Nasopharyngeal Influenza Types A,B Direct FA (ALIYAH) - Final 01/25/21 01:07 Mucosa - Nose SARS-CoV-2 Antigen (Rapid) - Final Laboratory Results 01/25/21 00:27: Diff Path Review Reviewed Current Medications Acetaminophen (Acetaminophen 325 Mg Tablet) 650 mg PO Q6H PRN PRN PRN Reason: Pain Score 1-10/Temp > 100.7 F Cholecalciferol (Cholecalciferol (Vit D3) 25 Mcg Tablet (1,000 Units)) 50 mcg PO DAILY [facility] Last Admin: 01/25/21 08:37 Dose: 50 mcg Documented by: Clonidine (Clonidine Hcl 0.2 Mg Tablet) 0.2 mg PO TID [facility] Last Admin: 01/26/21 05:28 Dose: 0.2 mg Documented by: Enoxaparin Sodium (Enoxaparin 40 Mg/0.4 Ml Syringe) 40 mg SC DAILY [facility] Last Admin: 01/25/21 08:36 Dose: 40 mg Documented by: Famotidine (Famotidine 20 Mg Tablet) 20 mg PO BID [facility] Last Admin: 01/25/21 21:37 Dose: 20 mg Documented by: Furosemide (Furosemide 40 Mg/4 Ml Vial) 40 mg IV BID@1000,1800 [facility] Last Admin: 01/25/21 17:02 Dose: 40 mg Documented by: Guaifenesin (Guaifenesin 10 Ml Udc (200mg/10ml)) 20 ml PO Q4H PRN PRN PRN Reason: COUGH Guaifenesin (Guaifenesin 600 Mg Tablet) 600 mg PO BID [facility] Last Admin: 01/25/21 21:37 Dose: 600 mg Documented by: Hydralazine HCl (Hydralazine 20 Mg/Ml Vial) 10 mg IV Q4H PRN PRN PRN Reason: SBP > 160 Levofloxacin (Levaquin Iv) 750 mg in 150 mls @ 100 mls/hr IV Q48@2200 [facility] Last Infusion: 01/25/21 10:48 Dose: Infused Documented by: Sodium Chloride () 250 mls @ 15 mls/hr IV .[id number] PRN PRN Reason: Additional IVPB Infusion Last Infusion: 01/25/21 12:50 Dose: 0 mls/hr Documented by: Ipratropium [place] (Ipratropium 0.5 Mg/2.5 Ml Solution) 0.5 mg INHALATION Q4H.RT [facility] Last Admin: 01/25/21 18:44 Dose: 0.5 mg Documented by: Lorazepam (Lorazepam 0.5 Mg Tablet) 0.5 mg PO TID PRN PRN PRN Reason: ANXIETY Last Admin: 01/26/21 03:01 Dose: 0.5 mg Documented by: Melatonin (Melatonin 3 Mg Tablet) 3 mg PO QHS PRN PRN PRN Reason: INSOMNIA Methylprednisolone (Methylprednisolone 40 Mg/Ml Vial) 40 mg IV Q8 [facility] Last Admin: 01/26/21 05:29 Dose: 40 mg Documented by: Morphine Sulfate (Morphine 2 Mg/Ml Syringe) 2 mg IV Q3H PRN PRN PRN Reason: Pain Score 6-10 Multivitamins/Minerals (Multivitamins,Ther W-Minerals Tablet) [facility] Last Admin: 01/25/21 08:37 Dose: 1 tablet Documented by: Nitroglycerin (Nitroglycerin (Inpatient Use) 0.4 Mg Tab.Subl) 0.4 mg SL Q5M PRN PRN Reason: CARDIAC/CHEST PAIN Ondansetron HCl (Ondansetron 4 Mg/2 Ml Vial) 4 mg IV Q8H PRN PRN PRN Reason: NAUSEA/VOMITING Oxycodone HCl (Oxycodone 5 Mg Tablet) 10 mg PO Q4H PRN PRN PRN Reason: Pain Score 4-5 Paroxetine HCl (Paroxetine 20 Mg Tablet) 20 mg PO DAILY [facility] Last Admin: 01/25/21 08:37 Dose: 20 mg Documented by: Potassium Chloride (Potassium Chloride Oral Tablet 20 Meq) 20 meq [facility] Last Admin: 01/25/21 08:38 Dose: 20 meq Documented by: Sodium Chloride (0.9% Saline Lock 10 Ml Syringe) 10 - 40 ml IV UD PRN PRN Reason: SALINE FLUSH Last Admin: 01/26/21 05:29 Dose: 10 ml Documented by: Spironolactone (Spironolactone 25 Mg Tablet) 25 mg PO DAILY [facility] Last Admin: 01/25/21 08:37 Dose: 25 mg Documented by: Verapamil HCl (Verapamil Sr 240 Mg Tablet) 120 mg PO Q12 [facility] Last Admin: 01/25/21 21:37 Dose: 120 mg Documented by: STROKE Vital Signs/Narrative: Vital Signs Pulse Resp Pulse Ox 01/26/21 07:15 99 01/26/21 07:13 84 01/26/21 05:17 70 15 97 Medical Necessity - Tobacco Use Smoking Status: Former smoker Assessment/Plan All Active Problems Nonhealing ulcer of right lower extremity with fat layer exposed (Acute) COPD exacerbation (Acute) Atypical chest pain (Acute) Acute hypercapnic respiratory failure (Acute) Ulcer of left lower extremity with fat layer exposed (Resolved) #Acute hypoxic respiratory failure due to COPD exacerbation and heart failure of unknown EF on breathing treatments with bronchodilators on IV solumedrol. also on IV lasix monitor intake and output 2D echo: EF of 75%, with mildly enlarged left atrium and trivial mitral valve insufficiency; unable to assess diastolic dysfunction on IV levofloxacin pulmonology consulted; await rec's #COPD exacerbation: as above #Acute on chronic HF of unknown EF as above. also on spironolactone onb IV lasix, and 2D echo as above. #Hypertension: on spironolactone and verapamil. #CHest pain: musculoskeletal in nature. 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 troponins x 2 were negative. #Hyperlipidemia: not on any meds #History of smoking: stable DVT prophylaxis: lovenox 1 Inpatient E&M: 93886 Subs Hosp L2
[2021-01-26 08:55] LABS: Absolute Lymphocyte Count 0.41 X10^3/uL (0.83-4.51); Absolute Neutrophil Count 11.8 X10^3/uL (2.0-7.7); Basophil# 0.01 X10^3/uL; Basophil% 0.1 % (0-1); Hemoglobin 13.8 g/dL (12.0-15.0); Lymphocyte # 0.41 X10^3/ul (4.0); Lymphocyte % 3.1 % (19-41); Mean Corp Hgb Conc 32.1 g/dL (32-36); Mean Corpuscular Hgb 30.9 pg (27.0-32.0); Mean Corpuscular Volume 96.4 fL (81-99); Mean Platelet Vol. 9.2 fl (6.2-12.0); Monocyte# 0.68 X10^3/uL; Monocyte% 5.2 % (0-10); NRBC Flagged by Analyzer 0 % (0-5); Neutrophil # 11.82 X10^3/uL (2.7-7.7); Neutrophil % 90.8 % (47-70); POSITIVE DIFFERENTIAL YES; Platelet Count 296 K/mm3 (150-450); RBC Distribution Width CV 12.3 % (11.6-14.6); RBC Distribution Width SD 43.2 fl (35.1-43.9); Red Blood Count 4.46 M/mm3 (4.2-5.4)
[2021-01-26 08:56] LABS: Differential Indicated SCAN CRITERIA MET
[2021-01-26] MEDS: Enoxaparin 40 MG/0.4 ML Syringe SC (09:05)
[2021-01-26] MEDS: Cholecalciferol (VIT D3) 25 MCG TABLET (1,000 UNITS) 50 MCG PO (09:05)
[2021-01-26] MEDS: Verapamil SR 240 MG Tablet 120 MG PO ×2 (09:05→21:04)
[2021-01-26] MEDS: guaiFENesin 600 MG Tablet PO ×2 (09:06→21:04)
[2021-01-26] MEDS: Spironolactone 25 MG Tablet PO (09:06)
[2021-01-26] MEDS: Paroxetine 20 MG Tablet PO (09:06)
[2021-01-26] MEDS: Furosemide 40 MG/4 ML Vial IV ×2 (09:07→17:45)
[2021-01-26] MEDS: Multivitamins,Ther W-Minerals Tablet 1 TABLET PO (09:07)
[2021-01-26] MEDS: Famotidine 20 MG Tablet PO ×2 (09:07→21:04)
[2021-01-26] MEDS: Potassium Chloride Oral Tablet 20 MEQ PO (09:07)
[2021-01-26 09:15] LABS: Anion Gap 3 (5-15); BUN 28 mg/dL (7-18); BUN/Creat Ratio 34.3 RATIO (10-20); Calcium,Total 10.1 mg/dL (8.5-10.1); Chloride 96 mmol/L (98-107); Creatinine, Serum 0.82 mg/dL (0.55-1.02); EST Glomerular Filtration Rate 73 mL/min (>60); Est Glom Filt Rate - Afr Amer 88 mL/min (>60); Estimated Creatinine Clearance 52.76 ml/min; Glucose 128 mg/dL (74-106); Potassium 3.7 mmol/L (3.5-5.1); Sodium Level 138 mmol/L (136-145)
--- NOTE | 2021-01-26 09:20 | CASEMGMT ---
Per Dr. Robles, he would like palliative consulted for pt at this time and pt did qualify for palliative c/s per [facility] palliative screening tool. Referral faxed and called to palliative. Mj HOLBROOK CM
--- NOTE | 2021-01-26 14:56 | CASEMGMT ---
This RN CM to room and pt states her cpap is thru [facility] and home oxygen is thru [facility]. CM to follow. S[place]en YUSEF CM
--- NOTE | 2021-01-26 15:41 | CON.PCM_ITS ---
Problem List (1) Shortness of breath Status: Acute Comment: acute on chronic (2) Venous insufficiency Status: Chronic (3) Delayed wound healing Status: Chronic (4) History of smoking Status: Chronic (5) Chronic respiratory failure Status: Chronic Qualifiers: Respiratory failure complication: hypoxia and hypercapnia Qualified Code(s): J96.11 - Chronic respiratory failure with hypoxia; J96.12 - Chronic respiratory failure with hypercapnia (6) Obesity Status: Chronic Qualifiers: Obesity type: due to excess calories Body mass index: BMI 32.0-32.9 (7) COPD (chronic obstructive pulmonary disease) Status: Chronic (8) Steroid dependent Status: Chronic (9) Leg swelling Status: Chronic (10) Hyperlipidemia Status: Chronic (11) Hypertension Status: Chronic Qualifiers: (12) CHF (congestive heart failure) Status: Chronic Qualifiers: Heart failure type: right-sided (13) Hx TIA/stroke w/o resid Status: Chronic (14) Peripheral vascular disease Status: Chronic History of Present Illness Date of Consult: 01/26/21 Reason for Consult: SOB Requesting physician: Dr. Robles Primary care physician: Dr. Mandi Canales MD - History of Present Illness The patient is a 75 year old F PMH as below, presented to the ED January 25 with complaints of increased shortness of breath for the last couple of days, cough, and chest pain with coughing. Also had increased lower extremity edema and a nonproductive cough. No fevers or chills. Did have to increase her home O2 from 3 L to 4 L per nasal cannula. She does have end-stage COPD and had an lung reduction surgery and 2012. She follows with pulmonary [facility] Dr. Villela. Patient has had both Covid vaccinations. Work-up in the ER showed mildly elevated BNP at 296.9. WBC 21.3, troponin negative, bicarb elevated. She required BiPAP and an ABG on 01/25 showed significant CO2 retention. She was admitted for further management acute on chronic hypoxic and hypercapnic respiratory failure. Pulmonary was consulted and recommended continue with antibiotics, scheduled bronchodilators, and steroids, as well as gentle diuresis. Also recommended continuing BiPAP as much as possible. Pulmonary recommended palliative care consultation with possible initiation of hospice as patient has end-stage COPD and respiratory failure. Sada lives at home with her spouse (Matti) in a one-story home, 3 steps to enter. assists with ADLs secondary to her significant shortness of breath. Patient has a living will and HCPOA. DME in the home including wheelchair, walker, grab bars, shower chair, BiPAP, and home oxygen at 3 L. She uses [facility] for pharmacy. Matti asking if hospice or palliative provide private duty nursing, inquiring because he works 2 part-time jobs and is gone 8 to 10 hours a day. He would like somebody to stay with Sada in case she needs something. We had a long conversation about hospice and palliative care. Patient does report that palliative has been brought up the last 2 visits with her pet food deboner, however she has declined further discussion as she was not ready yet. She did have the misconception that hospice was signing up today. Did explain differences of hospice and palliative care, goal is for symptom management but focus is a little bit different. Did also explained that with hospice, she would have more access to immediate care of nursing, synthetic staple extruder, provider, symptom management, etc. Also discussed the inpatient unit for s ymptom management. Patient Problems: Chronic Problems Venous insufficiency (Chronic) Delayed wound healing (Chronic) History of smoking (Chronic) Chronic respiratory failure (Chronic) Obesity (Chronic) COPD (chronic obstructive pulmonary disease) (Chronic) Steroid dependent (Chronic) Leg swelling (Chronic) Hyperlipidemia (Chronic) Hypertension (Chronic) CHF (congestive heart failure) (Chronic) Hx TIA/stroke w/o resid (Chronic) Edema leg (Chronic) Leg edema, left (Chronic) Peripheral vascular disease (Chronic) Benign hypertension (Chronic) Surgical History: appendectomy, - - lung volume reduction surgery 2011. breast biopsies, benign. Psychiatric History: Anxiety, Depression Home Medications: Ambulatory Orders Medication Instructions Recorded Furosemide [Lasix] 80 mg PO BID 07/22/13 Multivit-Min/FA/Lycopene/Lut 1 each PO DAILY 07/22/13 [Centrum Silver Tablet] Verapamil HCl [Calan Sr] 120 mg PO Q12 07/22/13 Potassium Chloride Oral Tablet 20 meq PO DAILY 07/24/13 [K-Dur] Clonidine HCl [Catapres] 0.2 mg PO TID 02/25/14 Levalbuterol Tartrate [Xopenex Hfa 1 - 2 puff INHALATION 4X/DAY PRN 02/25/14 Inhaler] PRN Tiotropium [place] [Spiriva 18 MCG] 1 puff INHALATION DAILY 02/25/14 Cholecalciferol (Vitamin D3) 2,000 unit PO DAILY 09/24/19 [Vitamin D3] Guaifenesin [Mucinex] 600 mg PO BID 09/24/19 Spironolactone 25 mg PO DAILY 11/20/19 Famotidine [Pepcid] 20 mg PO BID #30 tab 07/28/20 Paroxetine [Paxil] 20 mg PO DAILY 09/10/20 Prednisone 10 mg PO UD #30 tab 09/10/20 Lorazepam [Ativan] 0.5 mg PO TID PRN PRN 01/25/21 Budesonide/Formoterol 160/4.5 2 puff INHALATION BID 01/26/21 [Symbicort 160/4.5 Mcg Inhaler (SP)] Allergies albuterol Allergy (Verified 09/10/20 13:38) Shortness of breath belladonna alkaloids [Belladonna Alkaloids] Allergy (Verified 01/25/21 00:24) Rash lisinopril Allergy (Verified 01/25/21 00:24) Angioedema phenobarbital Allergy (Verified 01/25/21 00:24) Rash doxazosin mesylate [From Cardura] Adverse Reaction (Verified 01/25/21 00:24) PT UNSURE OF REACTION Maternal History Items: COPD Paternal History Items: COPD - Social History Lives: Spouse/ Significant Other Smoking Status: Former smoker Tobacco Use: Cigarettes Alcohol: None Drugs: None Code Status: DNRCC-A Review of Systems Constitutional: Reports: Weakness, Fatigue. Denies: Chills, Fever, Night Sweats, Weight Change Eyes: Denies: Vision Change HEENT: Denies: Difficulty Swallowing, Head Aches, Sinus Congestion, Sinus Drainage, Sore Throat Cardiovascular: Reports: Chest Pain - Occasionally, Edema. Denies: Chest Pressure, Light Headedness, Palpitations, Syncope Respiratory: Reports: Pleuritic Pain, Shortness of breath at rest, Shortness of breath upon exertion, Wheezing. Denies: Cough, Hemoptysis, Sputum production Gastrointestinal: Denies: Abdominal Pain, Constipation, Diarrhea, Nausea, Vomiting Genitourinary: Reports: Incontinence - Stress incontinence, nocturia 1-2 times a night. Denies: Dysuria Musculoskeletal: Reports: Back Pain. Denies: Joint Pain, Joint Tenderness Skin: Reports: Skin Changes - Thin. Denies: Rash, Wounds Neurological: Denies: Change in Speech, Focal weakness, Numbness, Tingling, Tremor, Seizures Psychiatric: Reports: Anxiety, Depression. Denies: Homicidal Ideations, Suicidal Ideations Hematologic/ Lymphatic: Reports: Anemia. Denies: Easy Bruising, Easy Bleeding Physical Exam Subjective: Sitting in recliner with legs elevated, mild respiratory distress. She is wearing 4 L of oxygen and reports her SPO2 is been greater than 95 most of the time. She is wondering if she could decrease back down to 3 L. General: Alert, Oriented x3, Cooperative, - - Mild dyspnea with conversation HEENT: Atraumatic, PERRLA, EOMI, Normocephalic Oral: Dry Mucosa Neck: Supple, Trachea Midline Lungs: No rhonchi, No rales, - - Very faint end expiratory wheeze, very diminished with poor air movement Cardiovascular: Regular rate, Normal S1, Normal S2 Abdomen: Bowel Sounds Present, Soft, Non Tender, Obese Extremities: No cyanosis, Capillary Refill Less than 3 Seconds, Edema Skin: No rashes, No breakdown, - - Bruising to arms Musculoskeletal: No Tenderness to Palpation of Joints or Extremities, Arthritic Changes Neurological: Neuro grossly intact Psych/Mental Status: Normal Affect, Appropriate, Anxious - Mild when gets short of breath Objective: Vital Signs Temp Pulse Resp BP Pulse Ox 97.2 F L 97 20 H 165/80 H 100 01/26/21 09:00 01/26/21 09:00 01/26/21 09:00 01/26/21 09:00 01/26/21 14:40 Oxygen Flow Rate (L/min) 4 Oxygen Delivery Method Nasal Cannula Weight: 85.2 kg Body Mass Index (BMI) 32.2 Intake and Output for Last 24 Hours 01/24/21 01/25/21 01/26/21 23:59 23:59 23:59 Intake Total 470.25 / 470.25 360 / 360 Output Total 1450 / 1450 250 / 250 Balance -979.75 / -979.75 110 / 110 Microbiology Past 72 Hours 01/26/21 07:48 Respiratory Panel (PCR) - Final Mucosa - Nose 01/25/21 01:07 Influenza Types A,B Direct FA (ALIYAH) - Final Mucosa - Nasopharyngeal 01/25/21 01:07 SARS-CoV-2 Antigen (Rapid) - Final Mucosa - Nose Laboratory Tests Past 24 Hrs 01/26/21 01/26/21 08:24 08:24 WBC 13.0 H RBC 4.46 Hgb 13.8 Hct 43.0 MCV 96.4 MCH 30.9 MCHC 32.1 RDW Std Deviation 43.2 RDW Coeff of Ashley 12.3 Plt Count 296 MPV 9.2 Immature Gran % (Auto) 0.800 Neut % (Auto) 90.8 H Lymph % (Auto) 3.1 L Leon % (Auto) 5.2 Eos % (Auto) 0.0 Baso % (Auto) 0.1 Absolute Neuts (auto) 11.8 H Absolute Lymphs (auto) 0.41 L Nucleated RBC % 0 Differential Comment COMMENT Sodium 138 Potassium 3.7 Chloride 96 L Carbon Dioxide 39.0 H Anion Gap 3 L BUN 28 H Creatinine 0.82 Estim Creat Clear Calc 52.76 Est GFR (MDRD) Af Amer 88 Est GFR (MDRD) Non-Af 73 BUN/Creatinine Ratio 34.3 H Glucose 128 H Calcium 10.1 Assessment/Plan All Active Problems Nonhealing ulcer of right lower extremity with fat layer exposed (Acute) COPD exacerbation (Acute) Atypical chest pain (Acute) Acute hypercapnic respiratory failure (Acute) Shortness of breath (Acute) Ulcer of left lower extremity with fat layer exposed (Resolved) 75-year-old female with end-stage COPD/respiratory failure with hypercapnia and hypoxia. Referred by pulmonary for palliative care consultation with possible appropriateness for hospice. Patient has had past conversations with her pet food deboner regarding her prognosis, which was thought to be less than 6 months as of December 2020, however she was not referred to palliative or hospice care. 1. Shortness of breath: In the setting of end-stage COPD/acute on chronic combined respiratory failure. On maximum therapy for her COPD, steroid- dependent. Continuing with antibiotics, steroids, bronchodilators. High anxiety associated with her dyspnea. Significantly improved with Ativan, she takes at home on average 3 times a day, 0.5 mg. Patient would benefit from a scheduled dose of Ativan, will start out with 0.5 mg every 6 hours, with a 0.5 mg dose every 2 hours as needed. Would also add an as needed dose of Roxanol, patient has had in the past and reports good results with that as well. Denies any oversedation in the past, but should monitor closely at least for the next 24 to 48 hours. GFR today was 73, would be cautious with Roxanol and may need to transition to oxycodone. If so, would start with a 2.5 mg dose every 4 hours as needed and titrate when indicated. 2. CHF/PVD/HTN/HLD/obesity/remote history of smoking/delayed wound healing/atypical chest pain: Complicates overall care, management, recovery, and prognosis. Patient was told she has less than 6 months to live, I would agree. Spouse having difficult time with that but acknowledges that is the reality. Thank you for the opportunity to participate in this patient's care, please do not hesitate to contact [facility] with any further questions or concerns. Palliative direct line is [phone]. Patient and spouse are opting for palliative care to start out with, but are open to the idea of transitioning to hospice if needed. We will have RN follow up approximately 3 days after discharge to home and will discuss palliative services further at that time. Greater than 50% of F2F visit dedicated to education and counseling of palliative care services, medications, comorbid conditions and potential assistance with management, and plan of care moving forward. Discussed in great detail the difference between hospice and palliative care services, multiple questions were answered. Spouse Matti was present during visit. Start time: 1538 End time: 1704
[2021-01-26] MEDS: oxyCODONE 5 MG Tablet 10 MG PO (18:44)
[2021-01-26] MEDS: levoFLOXacin IV 750 MG/150 ML BAG 100 MG IV (21:02)
[2021-01-27] VITALS (12 sets, daily range): BP systolic 143–165; BP diastolic 71–93; PULSE 65–108; RESP 18–99; TEMP 36–36.8; O2SAT 95–99
--- NOTE | 2021-01-27 00:08 | CPS ---
pt is on own bipap from home with 3.5 L bleed in
[2021-01-27] MEDS: cloNIDine HCl 0.2 MG Tablet PO ×3 (05:26→21:00)
[2021-01-27] MEDS: LORazepam 0.5 MG Tablet PO ×3 (05:26→17:29)
[2021-01-27] MEDS: 0.9% Saline Lock 10 ML Syringe IV ×4 (05:26→21:05)
[2021-01-27 07:03] LABS: Absolute Neutrophil Count 13.7 X10^3/uL (2.0-7.7); Basophil# 0.01 X10^3/uL; Basophil% 0.1 % (0-1); Hematocrit 43.9 % (37-47); Hemoglobin 13.8 g/dL (12.0-15.0); Mean Corp Hgb Conc 31.4 g/dL (32-36); Mean Corpuscular Hgb 30.2 pg (27.0-32.0); Mean Corpuscular Volume 96.1 fL (81-99); Mean Platelet Vol. 9.3 fl (6.2-12.0); Monocyte# 1.29 X10^3/uL; Monocyte% 8.4 % (0-10); NRBC Flagged by Analyzer 0 % (0-5); Neutrophil # 13.65 X10^3/uL (2.7-7.7); Neutrophil % 88.8 % (47-70); POSITIVE DIFFERENTIAL YES; Platelet Count 316 K/mm3 (150-450); RBC Distribution Width SD 42.3 fl (35.1-43.9); Red Blood Count 4.57 M/mm3 (4.2-5.4); White Blood Count 15.4 K/mm3 (4.4-11.0)
[2021-01-27 07:05] LABS: Differential Indicated SCAN CRITERIA MET
[2021-01-27 07:29] LABS: Anion Gap 3 (5-15); BUN 31 mg/dL (7-18); BUN/Creat Ratio 37.5 RATIO (10-20); Calcium,Total 9.7 mg/dL (8.5-10.1); Chloride 94 mmol/L (98-107); Creatinine, Serum 0.83 mg/dL (0.55-1.02); EST Glomerular Filtration Rate 72 mL/min (>60); Est Glom Filt Rate - Afr Amer 87 mL/min (>60); Estimated Creatinine Clearance 52.13 ml/min; Glucose 129 mg/dL (74-106); Potassium 3.6 mmol/L (3.5-5.1); Sodium Level 137 mmol/L (136-145)
[2021-01-27] MEDS: Verapamil SR 240 MG Tablet 120 MG PO ×2 (10:10→21:00)
[2021-01-27] MEDS: Paroxetine 20 MG Tablet PO (10:10)
[2021-01-27] MEDS: Potassium Chloride Oral Tablet 20 MEQ PO (10:11)
[2021-01-27] MEDS: Famotidine 20 MG Tablet PO ×2 (10:12→21:00)
[2021-01-27] MEDS: guaiFENesin 600 MG Tablet PO ×2 (10:12→21:00)
[2021-01-27] MEDS: Multivitamins,Ther W-Minerals Tablet 1 TABLET PO (10:12)
[2021-01-27] MEDS: TIOTROPIUM BROMIDE 18 MCG CAP.W.DEV INHALATION (10:13)
[2021-01-27] MEDS: Cholecalciferol (VIT D3) 25 MCG TABLET (1,000 UNITS) 50 MCG PO (10:13)
[2021-01-27] MEDS: Enoxaparin 40 MG/0.4 ML Syringe SC (10:14)
[2021-01-27] MEDS: Furosemide 40 MG/4 ML Vial IV ×2 (10:14→17:29)
[2021-01-27] MEDS: Spironolactone 25 MG Tablet PO (10:15)
--- NOTE | 2021-01-27 12:06 | PN_ITS ---
Patient Problems: Active and Suspected Problems COPD exacerbation (Acute) Atypical chest pain (Acute) Acute hypercapnic respiratory failure (Acute) Shortness of breath (Acute) acute on chronic Subjective: The patient was seen and examined at the bedside this morning. Events from the last 24 hours have been reviewed. The patient is currently afebrile, hemodynamically stable and maintaining appropriate oxygen saturations on 3 L/min via nasal cannula. Shortness of breath is somewhat better today. The patient was evaluated by palliative care yesterday. Objective: The patient's most recent lab work, culture data and imaging studies have all been personally reviewed. Rapid influenza screen was negative. Rapid coronavirus antigen testing was negative. - Physical Exam Vitals/I&O's: Vital Signs Temp Pulse Resp BP Pulse Ox 97.6 F L 89 18 165/80 H 98 01/27/21 09:28 01/27/21 11:52 01/27/21 09:28 01/27/21 09:28 01/27/21 10:13 Oxygen Flow Rate (L/min) 3 Oxygen Delivery Method Nasal Cannula Weight: 184 lb 8.43 oz Body Mass Index (BMI) 32.2 Intake and Output for Last 24 Hours 01/25/21 01/26/21 01/27/21 23:59 23:59 23:59 Intake Total 470.25 / 470.25 1230 / 1230 240 / 240 Output Total 1450 / 1450 675 / 675 Balance -979.75 / -979.75 555 / 555 240 / 240 General: Alert, Cooperative HEENT: Atraumatic, Normocephalic Oral: No Gingival or Mucosal Lesions/ Ulcerations Neck: Supple, No Nodes, Trachea Midline Lungs: Diminished Cardiovascular: Regular rate, Regular Rhythm Abdomen: Bowel Sounds Present, Soft, Non Tender, Obese Extremities: No clubbing, No cyanosis, No edema Skin: No breakdown Musculoskeletal: No Tenderness to Palpation of Joints or Extremities Lymphatic: No Cervical, Supraclavicular, or Inguinal Adenopathy Neurological: Neuro grossly intact Psych/Mental Status: Normal Affect, Appropriate Labs (Last 48 Hours) 01/26/21 01/26/21 01/27/21 08:24 08:24 06:05 WBC 13.0 H 15.4 H RBC 4.46 4.57 Hgb 13.8 13.8 Hct 43.0 43.9 MCV 96.4 96.1 MCH 30.9 30.2 MCHC 32.1 31.4 L RDW Std Deviation 43.2 42.3 RDW Coeff of Ashley 12.3 12.0 Plt Count 296 316 MPV 9.2 9.3 Immature Gran % (Auto) 0.800 0.700 Neut % (Auto) 90.8 H 88.8 H Lymph % (Auto) 3.1 L 2.0 L [place] % (Auto) 5.2 8.4 Eos % (Auto) 0.0 0.0 Baso % (Auto) 0.1 0.1 Absolute Neuts (auto) 11.8 H 13.7 H Absolute Lymphs (auto) 0.41 L 0.30 L Nucleated RBC % 0 0 Differential Comment COMMENT Sodium 138 Potassium 3.7 Chloride 96 L Carbon Dioxide 39.0 H Anion Gap 3 L BUN 28 H Creatinine 0.82 Estim Creat Clear Calc 52.76 Est GFR (MDRD) Af Amer 88 Est GFR (MDRD) Non-Af 73 BUN/Creatinine Ratio 34.3 H Glucose 128 H Calcium 10.1 01/27/21 06:05 WBC RBC Hgb Hct MCV MCH MCHC RDW Std Deviation RDW Coeff of Ashley Plt Count MPV Immature Gran % (Auto) Neut % (Auto) Lymph % (Auto) [place] % (Auto) Eos % (Auto) Baso % (Auto) Absolute Neuts (auto) Absolute Lymphs (auto) Nucleated RBC % Differential Comment Sodium 137 Potassium 3.6 Chloride 94 L Carbon Dioxide 40.0 H Anion Gap 3 L BUN 31 H Creatinine 0.83 Estim Creat Clear Calc 52.13 Est GFR (MDRD) Af Amer 87 Est GFR (MDRD) Non-Af 72 BUN/Creatinine Ratio 37.5 H Glucose 129 H Calcium 9.7 Microbiology 01/26/21 07:48 Mucosa - Nose Respiratory Panel (PCR) - Final Clinical Impression(s) from Imaging Studies Chest X-Ray 01/25/21 00:59 IMPRESSION: Mild left-sided pleural effusion. Bilateral basilar atelectasis with crowding of vessels. Questionable postoperative changes through the bilateral mid upper lung barone. Electronically Signed: Lidia Rolle MD at 1:19 EDT , Service support , Echocardiogram 01/25/21 07:44 Interpretation Summary The study was technically difficult. Contrast injection was performed. Based upon the 2D echocardiographic and contrast enhanced images obtained there appears to be grossly normal left ventricular size, wall motion, and systolic function. The estimated ejection fraction is 75 %. The left atrium is mildly enlarged. Trivial mitral valve insufficiency. Mild focal aortic valve calcification. Epicardial fat. Unable to assess diastolic dysfunction. _ Ordering Physician: Carolyne Gregg Referring Physician: Mandi Canales M.D. Performed By: Jose Alfredo Medina RCS Current Medications Acetaminophen (Acetaminophen 325 Mg Tablet) 650 mg PO Q6H PRN PRN PRN Reason: Pain Score 1-10/Temp > 100.7 F Cholecalciferol (Cholecalciferol (Vit D3) 25 Mcg Tablet (1,000 Units)) 50 mcg PO DAILY [facility] Last Admin: 01/27/21 10:13 Dose: 50 mcg Documented by: Clonidine (Clonidine Hcl 0.2 Mg Tablet) 0.2 mg PO TID [facility] Last Admin: 01/27/21 05:26 Dose: 0.2 mg Documented by: Enoxaparin Sodium (Enoxaparin 40 Mg/0.4 Ml Syringe) 40 mg SC DAILY [facility] Last Admin: 01/27/21 10:14 Dose: 40 mg Documented by: Famotidine (Famotidine 20 Mg Tablet) 20 mg PO BID [facility] Last Admin: 01/27/21 10:12 Dose: 20 mg Documented by: Furosemide (Furosemide 40 Mg/4 Ml Vial) 40 mg IV BID@1000,1800 [facility] Last Admin: 01/27/21 10:14 Dose: 40 mg Documented by: Guaifenesin (Guaifenesin 10 Ml Udc (200mg/10ml)) 20 ml PO Q4H PRN PRN PRN Reason: COUGH Guaifenesin (Guaifenesin 600 Mg Tablet) 600 mg PO BID [facility] Last Admin: 01/27/21 10:12 Dose: 600 mg Documented by: Hydralazine HCl (Hydralazine 20 Mg/Ml Vial) 10 mg IV Q4H PRN PRN PRN Reason: SBP > 160 Levofloxacin (Levaquin Iv) 750 mg in 150 mls @ 100 mls/hr IV Q48@2200 [facility] Last Infusion: 01/26/21 22:32 Dose: Infused Documented by: Sodium Chloride () 250 mls @ 15 mls/hr IV .[id number] PRN PRN Reason: Additional IVPB Infusion Last Infusion: 01/25/21 12:50 Dose: 0 mls/hr Documented by: Lorazepam (Lorazepam 0.5 Mg Tablet) 0.5 mg PO Q6 [facility] Last Admin: 01/27/21 11:59 Dose: 0.5 mg Documented by: Lorazepam (Lorazepam 0.5 Mg Tablet) 0.5 mg PO Q4H PRN PRN PRN Reason: ANXIETY/RESTLESSNESS/SLEEP Melatonin (Melatonin 3 Mg Tablet) 3 mg PO QHS PRN PRN PRN Reason: INSOMNIA Methylprednisolone (Methylprednisolone 40 Mg/Ml Vial) 40 mg IV Q8 [facility] Last Admin: 01/27/21 05:26 Dose: 40 mg Documented by: Morphine Sulfate (Morphine (Oral Solution) 10mg/0.5ml Syringe) 2.5 mg SL/PO Q2H PRN PRN PRN Reason: .SHORTNESS OF BREATH Multivitamins/Minerals (Multivitamins,Ther W-Minerals Tablet) 1 tablet PO DAILYCM [facility] Last Admin: 01/27/21 10:12 Dose: 1 tablet Documented by: Nitroglycerin (Nitroglycerin (Inpatient Use) 0.4 Mg Tab.Subl) 0.4 mg SL Q5M PRN PRN Reason: CARDIAC/CHEST PAIN Non-Formulary Medication (Levalbuterol Tartrate) 1 - 2 puff INHALATION 4X/DAY PRN PRN PRN Reason: ALLERGIES Last Admin: 01/27/21 07:36 Dose: 2 puff Documented by: Non-Formulary Medication (Budesonide/Formoterol 160-4.5 [Symbicort 160-4.5 Mcg Inhaler]) 2 puff INHALATION BID [facility] Last Admin: 01/27/21 10:14 Dose: 2 puff Documented by: Ondansetron HCl (Ondansetron 4 Mg/2 Ml Vial) 4 mg IV Q8H PRN PRN PRN Reason: NAUSEA/VOMITING Oxycodone HCl (Oxycodone 5 Mg Tablet) 10 mg PO Q4H PRN PRN PRN Reason: Pain Score 4-5 Last Admin: 01/26/21 18:44 Dose: 10 mg Documented by: Paroxetine HCl (Paroxetine 20 Mg Tablet) 20 mg PO DAILY [facility] Last Admin: 01/27/21 10:10 Dose: 20 mg Documented by: Potassium Chloride (Potassium Chloride Oral Tablet 20 Meq) 20 meq PO DAILYCM [facility] Last Admin: 01/27/21 10:11 Dose: 20 meq Documented by: Sodium Chloride (0.9% Saline Lock 10 Ml Syringe) 10 - 40 ml IV UD PRN PRN Reason: SALINE FLUSH Last Admin: 01/27/21 05:26 Dose: 10 ml Documented by: Spironolactone (Spironolactone 25 Mg Tablet) 25 mg PO DAILY [facility] Last Admin: 01/27/21 10:15 Dose: 25 mg Documented by: Tiotropium [place] (Tiotropium [place] 18 Mcg Cap.W.Dev) 18 mcg INHALATION DAILY [facility] Last Admin: 01/27/21 10:13 Dose: 18 mcg Documented by: Verapamil HCl (Verapamil Sr 240 Mg Tablet) 120 mg PO Q12 [facility] Last Admin: 01/27/21 10:10 Dose: 120 mg Documented by: Medical Necessity - Tobacco Use Smoking Status: Former smoker Tobacco Use: Cigarettes Assessment/Plan All Active Problems Nonhealing ulcer of right lower extremity with fat layer exposed (Acute) COPD exacerbation (Acute) Atypical chest pain (Acute) Acute hypercapnic respiratory failure (Acute) Shortness of breath (Acute) Ulcer of left lower extremity with fat layer exposed (Resolved) RECOMMENDATIONS: 1. Agree with continuing antibiotics, scheduled bronchodilator therapy and steroids. 2. Gentle diuresis as tolerated by hemodynamics and renal function. 3. Continue BiPAP therapy, at a minimum, with naps and nightly. 4. Wean supplemental oxygen to maintain saturations greater than 88%. 5. Perform walking oximetry prior to consideration for discharge home. IMPRESSIONS: 1. Acute on chronic combined respiratory failure/COPD with exacerbation The patient has known end-stage COPD and chronic hypoxemic respiratory failure with her baseline 3 to 4 L/min oxygen requirement. She is currently being followed by Dr. Villela at [facility]. The patient remains symptomatic despite being on maximum for COPD therapy. At the present time, I agree with continuing antimicrobials with plans to complete a 7-day treatment course along with scheduled bronchodilators and IV steroids. Given that the patient does have baseline shortness of breath and anxiety despite bronchodilator therapy, recommend continued follow-up with palliative care medicine. In addition, during her last office visit with her primary registry rn, she was apparently told that she likely had 6 months or less to live. 2. Heart failure with preserved ejection fraction Continue gentle diuresis as tolerated by hemodynamics and renal function. 3. Hypertension/GERD/depression/anxiety Complicates care, management, recovery and prognosis. Continue home medications as indicated. This note was generated with [employer] dictation software. It may contain incorrect words, spelling, and punctuation that were not noted in checking the note before signing. Inpatient E&M: 46582 Subs Hosp L2
[2021-01-27] MEDS: morphine (oral solution) 10MG/0.5ML Syringe 2.5 MG SL/PO ×2 (12:44→21:18)
--- NOTE | 2021-01-27 12:50 | PN_ITS ---
<Julieta Gutierrez INTELLIGENCE CHIEF - Last Filed: 01/27/21 13:19> Patient Problems: Active and Suspected Problems COPD exacerbation (Acute) Atypical chest pain (Acute) Acute hypercapnic respiratory failure (Acute) Shortness of breath (Acute) acute on chronic Subjective: Patient seen and examined. States breathing has improved since admission. She is on 3 L of oxygen which is her baseline. Overall feeling improved however continues to feel weak. Denies fever, chills. - Physical Exam Vitals/I&O's: Vital Signs Temp Pulse Resp BP Pulse Ox 97.6 F L 89 18 165/80 H 98 01/27/21 09:28 01/27/21 11:52 01/27/21 09:28 01/27/21 09:28 01/27/21 10:13 Oxygen Flow Rate (L/min) 3 Oxygen Delivery Method Nasal Cannula Weight: 184 lb 8.43 oz Body Mass Index (BMI) 32.2 Intake and Output for Last 24 Hours 01/25/21 01/26/21 01/27/21 23:59 23:59 23:59 Intake Total 470.25 / 470.25 1230 / 1230 240 / 240 Output Total 1450 / 1450 675 / 675 Balance -979.75 / -979.75 555 / 555 240 / 240 General: Alert, Oriented x3, Cooperative HEENT: Atraumatic, PERRLA, EOMI, Normocephalic Neck: Supple, No JVD, Negative Carotid Bruits Lungs: Clear to auscultation, Diminished Cardiovascular: Regular rate, No murmurs Abdomen: Bowel Sounds Present, Soft, Non Tender, Non-Distended Extremities: No clubbing, No cyanosis, Edema - Nonpitting bilateral lower extremities Skin: No rashes, No breakdown Musculoskeletal: No Tenderness to Palpation of Joints or Extremities Neurological: Cranial nerves II-XII grossly intact, Neuro grossly intact Psych/Mental Status: Normal Affect, Appropriate Microbiology Past 72 Hours 01/26/21 07:48 Mucosa - Nose Respiratory Panel (PCR) - Final 01/25/21 01:07 Mucosa - Nasopharyngeal Influenza Types A,B Direct FA (ALIYAH) - Final 01/25/21 01:07 Mucosa - Nose SARS-CoV-2 Antigen (Rapid) - Final Laboratory Results 01/27/21 06:05: WBC 15.4 H, RBC 4.57, Hgb 13.8, Hct 43.9, MCV 96.1, MCH 30.2, MCHC 31.4 L, RDW Std Deviation 42.3, RDW Coeff of [place] 12.0, Plt Count 316, MPV 9.3, Immature Gran % (Auto) 0.700, Neut % (Auto) 88.8 H, Lymph % (Auto) 2.0 L, [place] % (Auto) 8.4, Eos % (Auto) 0.0, Baso % (Auto) 0.1, Absolute Neuts (auto) 13.7 H, Absolute Lymphs (auto) 0.30 L, Nucleated RBC % 0 01/27/21 06:05: Sodium 137, Potassium 3.6, Chloride 94 L, Carbon Dioxide 40.0 H, Anion Gap 3 L, BUN 31 H, Creatinine 0.83, Estim Creat Clear Calc 52.13, Est GFR (MDRD) Af Amer 87, Est GFR (MDRD) Non-Af 72, BUN/Creatinine Ratio 37.5 H, Glucose 129 H, Calcium 9.7 Current Medications Acetaminophen (Acetaminophen 325 Mg Tablet) 650 mg PO Q6H PRN PRN PRN Reason: Pain Score 1-10/Temp > 100.7 F Cholecalciferol (Cholecalciferol (Vit D3) 25 Mcg Tablet (1,000 Units)) 50 mcg PO DAILY [facility] Last Admin: 01/27/21 10:13 Dose: 50 mcg Documented by: Clonidine (Clonidine Hcl 0.2 Mg Tablet) 0.2 mg PO TID [facility] Last Admin: 01/27/21 05:26 Dose: 0.2 mg Documented by: Enoxaparin Sodium (Enoxaparin 40 Mg/0.4 Ml Syringe) 40 mg SC DAILY [facility] Last Admin: 01/27/21 10:14 Dose: 40 mg Documented by: Famotidine (Famotidine 20 Mg Tablet) 20 mg PO BID [facility] Last Admin: 01/27/21 10:12 Dose: 20 mg Documented by: Furosemide (Furosemide 40 Mg/4 Ml Vial) 40 mg IV BID@1000,1800 [facility] Last Admin: 01/27/21 10:14 Dose: 40 mg Documented by: Guaifenesin (Guaifenesin 10 Ml Udc (200mg/10ml)) 20 ml PO Q4H PRN PRN PRN Reason: COUGH Guaifenesin (Guaifenesin 600 Mg Tablet) 600 mg PO BID [facility] Last Admin: 01/27/21 10:12 Dose: 600 mg Documented by: Hydralazine HCl (Hydralazine 20 Mg/Ml Vial) 10 mg IV Q4H PRN PRN PRN Reason: SBP > 160 Levofloxacin (Levaquin Iv) 750 mg in 150 mls @ 100 mls/hr IV Q48@2200 [facility] Last Infusion: 01/26/21 22:32 Dose: Infused Documented by: Sodium Chloride () 250 mls @ 15 mls/hr IV .[id number] PRN PRN Reason: Additional IVPB Infusion Last Infusion: 01/25/21 12:50 Dose: 0 mls/hr Documented by: Lorazepam (Lorazepam 0.5 Mg Tablet) 0.5 mg PO Q6 [facility] Last Admin: 01/27/21 11:59 Dose: 0.5 mg Documented by: Lorazepam (Lorazepam 0.5 Mg Tablet) 0.5 mg PO Q4H PRN PRN PRN Reason: ANXIETY/RESTLESSNESS/SLEEP Melatonin (Melatonin 3 Mg Tablet) 3 mg PO QHS PRN PRN PRN Reason: INSOMNIA Methylprednisolone (Methylprednisolone 40 Mg/Ml Vial) 40 mg IV Q8 [facility] Last Admin: 01/27/21 05:26 Dose: 40 mg Documented by: Morphine Sulfate (Morphine (Oral Solution) 10mg/0.5ml Syringe) 2.5 mg SL/PO Q2H PRN PRN PRN Reason: .SHORTNESS OF BREATH Last Admin: 01/27/21 12:44 Dose: 2.5 mg Documented by: Multivitamins/Minerals (Multivitamins,Ther [facility]) [facility] Admin: 01/27/21 10:12 Dose: 1 tablet Documented by: Nitroglycerin (Nitroglycerin (Inpatient Use) 0.4 Mg Tab.Subl) 0.4 mg SL Q5M PRN PRN Reason: CARDIAC/CHEST PAIN Non-Formulary Medication (Levalbuterol Tartrate) 1 - 2 puff INHALATION 4X/DAY PRN PRN PRN Reason: ALLERGIES Last Admin: 01/27/21 07:36 Dose: 2 puff Documented by: Non-Formulary Medication (Budesonide/Formoterol 160-4.5 [Symbicort 160-4.5 Mcg Inhaler]) 2 puff INHALATION BID [facility] Last Admin: 01/27/21 10:14 Dose: 2 puff Documented by: Ondansetron HCl (Ondansetron 4 Mg/2 Ml Vial) 4 mg IV Q8H PRN PRN PRN Reason: NAUSEA/VOMITING Oxycodone HCl (Oxycodone 5 Mg Tablet) 10 mg PO Q4H PRN PRN PRN Reason: Pain Score 4-5 Last Admin: 01/26/21 18:44 Dose: 10 mg Documented by: Paroxetine HCl (Paroxetine 20 Mg Tablet) 20 mg PO DAILY [facility] Last Admin: 01/27/21 10:10 Dose: 20 mg Documented by: Potassium Chloride (Potassium Chloride Oral Tablet 20 Meq) 20 meq PO DAILYCM [facility] Last Admin: 01/27/21 10:11 Dose: 20 meq Documented by: Sodium Chloride (0.9% Saline Lock 10 Ml Syringe) 10 - 40 ml IV UD PRN PRN Reason: SALINE FLUSH Last Admin: 01/27/21 05:26 Dose: 10 ml Documented by: Spironolactone (Spironolactone 25 Mg Tablet) 25 mg PO DAILY [facility] Last Admin: 01/27/21 10:15 Dose: 25 mg Documented by: Tiotropium [place] (Tiotropium [place] 18 Mcg Cap.W.Dev) 18 mcg INHALATION DAILY [facility] Last Admin: 01/27/21 10:13 Dose: 18 mcg Documented by: Verapamil HCl (Verapamil Sr 240 Mg Tablet) 120 mg PO Q12 [facility] Last Admin: 01/27/21 10:10 Dose: 120 mg Documented by: Medical Necessity - Tobacco Use Smoking Status: Former smoker Tobacco Use: Cigarettes Assessment/Plan All Active Problems Nonhealing ulcer of right lower extremity with fat layer exposed (Acute) COPD exacerbation (Acute) Atypical chest pain (Acute) Acute hypercapnic respiratory failure (Acute) Shortness of breath (Acute) Ulcer of left lower extremity with fat layer exposed (Resolved) 1. Acute on chronic hypoxic respiratory failure secondary to exacerbation of COPD and acute on chronic heart failure with preserved ejection fraction- continue supplement oxygen to maintain O2 above 90%. Patient wears 3 L nasal cannula at baseline with CPAP at night. Repeat home oxygen testing prior to discharge. Pulmonary medicine consulted. Palliative medicine consulted as well. 2. COPD with exacerbation-respiratory panel, Covid negative. Continue IV Solu- Medrol. Allergy to albuterol. On Levaquin empirically to complete 7-day course. 3. Acute on chronic heart failure with preserved ejection fraction-BNP 296. Chest x-ray with left-sided pleural effusion. Echocardiogram demonstrates an EF of 75%. Continue IV Lasix. Strict I&O. Daily weight. Jason wraps bilateral lower extremities. 4. Hypertension- stable, continue clonidine, spironolactone, verapamil. 5. Hyperlipidemia- not on statin. 6. History of tobacco use-encouraged continued cessation. DVT prophylaxis- Lovenox sc Discharge planning: Possible discharge tomorrow if patient remains stable on baseline home O2. Palliative to follow at discharge. Repeat home oxygen testing prior to discharge. This patient was seen by MAXWELL Richards under the supervision of Dr. Gregg. <Carolyne Gregg - Last Filed: 01/27/21 15:38> - Physical Exam Vitals/I&O's: Vital Signs Temp Pulse Resp BP Pulse Ox 96.8 F L 92 18 150/71 H 98 01/27/21 14:00 01/27/21 14:00 01/27/21 14:00 01/27/21 14:00 01/27/21 14:00 Oxygen Flow Rate (L/min) 3.5 Oxygen Delivery Method Nasal Cannula Weight: 184 lb 8.43 oz Body Mass Index (BMI) 32.2 Intake and Output for Last 24 Hours 01/25/21 01/26/21 01/27/21 23:59 23:59 23:59 Intake Total 470.25 / 470.25 1230 / 1230 240 / 240 Output Total 1450 / 1450 675 / 675 Balance -979.75 / -979.75 555 / 555 240 / 240 Microbiology Past 72 Hours 01/26/21 07:48 Mucosa - Nose Respiratory Panel (PCR) - Final 01/25/21 01:07 Mucosa - Nasopharyngeal Influenza Types A,B Direct FA (ALIYAH) - Final 01/25/21 01:07 Mucosa - Nose SARS-CoV-2 Antigen (Rapid) - Final Laboratory Results 01/27/21 06:05: WBC 15.4 H, RBC 4.57, Hgb 13.8, Hct 43.9, MCV 96.1, MCH 30.2, MCHC 31.4 L, RDW Std Deviation 42.3, RDW Coeff of [place] 12.0, Plt Count 316, MPV 9.3, Immature Gran % (Auto) 0.700, Neut % (Auto) 88.8 H, Lymph % (Auto) 2.0 L, [place] % (Auto) 8.4, Eos % (Auto) 0.0, Baso % (Auto) 0.1, Absolute Neuts (auto) 13.7 H, Absolute Lymphs (auto) 0.30 L, Nucleated RBC % 0 01/27/21 06:05: Sodium 137, Potassium 3.6, Chloride 94 L, Carbon Dioxide 40.0 H, Anion Gap 3 L, BUN 31 H, Creatinine 0.83, Estim Creat Clear Calc 52.13, Est GFR (MDRD) Af Amer 87, Est GFR (MDRD) Non-Af 72, BUN/Creatinine Ratio 37.5 H, Glucose 129 H, Calcium 9.7 Current Medications Acetaminophen (Acetaminophen 325 Mg Tablet) 650 mg PO Q6H PRN PRN PRN Reason: Pain Score 1-10/Temp > 100.7 F Cholecalciferol (Cholecalciferol (Vit D3) 25 Mcg Tablet (1,000 Units)) 50 mcg PO DAILY [facility] Last Admin: 01/27/21 10:13 Dose: 50 mcg Documented by: Clonidine (Clonidine Hcl 0.2 Mg Tablet) 0.2 mg PO TID [facility] Last Admin: 01/27/21 13:45 Dose: 0.2 mg Documented by: Enoxaparin Sodium (Enoxaparin 40 Mg/0.4 Ml Syringe) 40 mg SC DAILY [facility] Last Admin: 01/27/21 10:14 Dose: 40 mg Documented by: Famotidine (Famotidine 20 Mg Tablet) 20 mg PO BID [facility] Last Admin: 01/27/21 10:12 Dose: 20 mg Documented by: Furosemide (Furosemide 40 Mg/4 Ml Vial) 40 mg IV BID@1000,1800 [facility] Last Admin: 01/27/21 10:14 Dose: 40 mg Documented by: Guaifenesin (Guaifenesin 10 Ml Udc (200mg/10ml)) 20 ml PO Q4H PRN PRN PRN Reason: COUGH Guaifenesin (Guaifenesin 600 Mg Tablet) 600 mg PO BID [facility] Last Admin: 01/27/21 10:12 Dose: 600 mg Documented by: Hydralazine HCl (Hydralazine 20 Mg/Ml Vial) 10 mg IV Q4H PRN PRN PRN Reason: SBP > 160 Levofloxacin (Levaquin Iv) 750 mg in 150 mls @ 100 mls/hr IV Q48@2200 [facility] Last Infusion: 01/26/21 22:32 Dose: Infused Documented by: Sodium Chloride () 250 mls @ 15 mls/hr IV .[id number] PRN PRN Reason: Additional IVPB Infusion Last Infusion: 01/25/21 12:50 Dose: 0 mls/hr Documented by: Lorazepam (Lorazepam 0.5 Mg Tablet) 0.5 mg PO Q6 [facility] Last Admin: 01/27/21 11:59 Dose: 0.5 mg Documented by: Lorazepam (Lorazepam 0.5 Mg Tablet) 0.5 mg PO Q4H PRN PRN PRN Reason: ANXIETY/RESTLESSNESS/SLEEP Melatonin (Melatonin 3 Mg Tablet) 3 mg PO QHS PRN PRN PRN Reason: INSOMNIA Methylprednisolone (Methylprednisolone 40 Mg/Ml Vial) 40 mg IV Q8 [facility] Last Admin: 01/27/21 13:45 Dose: 40 mg Documented by: Morphine Sulfate (Morphine (Oral Solution) 10mg/0.5ml Syringe) 2.5 mg SL/PO Q2H PRN PRN PRN Reason: .SHORTNESS OF BREATH Last Admin: 01/27/21 12:44 Dose: 2.5 mg Documented by: Multivitamins/Minerals (Multivitamins,Ther W-Minerals Tablet) 1 tablet PO DAILYCM [facility] Last Admin: 01/27/21 10:12 Dose: 1 tablet Documented by: Nitroglycerin (Nitroglycerin (Inpatient Use) 0.4 Mg Tab.Subl) 0.4 mg SL Q5M PRN PRN Reason: CARDIAC/CHEST PAIN Non-Formulary Medication (Levalbuterol Tartrate) 1 - 2 puff INHALATION 4X/DAY PRN PRN PRN Reason: ALLERGIES Last Admin: 01/27/21 07:36 Dose: 2 puff Documented by: Non-Formulary Medication (Budesonide/Formoterol 160-4.5 [Symbicort 160-4.5 Mcg Inhaler]) 2 puff INHALATION BID [facility] Last Admin: 01/27/21 10:14 Dose: 2 puff Documented by: Ondansetron HCl (Ondansetron 4 Mg/2 Ml Vial) 4 mg IV Q8H PRN PRN PRN Reason: NAUSEA/VOMITING Oxycodone HCl (Oxycodone 5 Mg Tablet) 10 mg PO Q4H PRN PRN PRN Reason: Pain Score 4-5 Last Admin: 01/26/21 18:44 Dose: 10 mg Documented by: Paroxetine HCl (Paroxetine 20 Mg Tablet) 20 mg PO DAILY [facility] Last Admin: 01/27/21 10:10 Dose: 20 mg Documented by: Potassium Chloride (Potassium Chloride Oral Tablet 20 Meq) 20 meq PO DAILYCM [facility] Last Admin: 01/27/21 10:11 Dose: 20 meq Documented by: Sodium Chloride (0.9% Saline Lock 10 Ml Syringe) 10 - 40 ml IV UD PRN PRN Reason: SALINE FLUSH Last Admin: 01/27/21 13:45 Dose: 10 ml Documented by: Spironolactone (Spironolactone 25 Mg Tablet) 25 mg PO DAILY [facility] Last Admin: 01/27/21 10:15 Dose: 25 mg Documented by: Tiotropium [place] (Tiotropium [place] 18 Mcg Cap.W.Dev) 18 mcg INHALATION DAILY [facility] Last Admin: 01/27/21 10:13 Dose: 18 mcg Documented by: Verapamil HCl (Verapamil Sr 240 Mg Tablet) 120 mg PO Q12 [facility] Last Admin: 01/27/21 10:10 Dose: 120 mg Documented by: Assessment/Plan Patient seen by Julieta ARREOLA under my supervision Patient seen and examined. She feels much better today. She is down to 3.5 L of oxygen. Review of systems otherwise negative. She still does feel a bit frail. She has otherwise remained hemodynamically stable. WBC is up to 15.4 today but this likely due to steroids. O/E: Vital Signs Temp Pulse Resp BP Pulse Ox 96.8 F L 92 18 150/71 H 98 01/27/21 14:00 01/27/21 14:00 01/27/21 14:00 01/27/21 14:00 01/27/21 14:00 General: Alert, Oriented x3, Cooperative, No apparent distress HEENT: Atraumatic, PERRLA, EOMI, Normocephalic Oral: Dry Mucosa Neck: Supple, No JVD, Negative Carotid Bruits Lungs: Markedly diminished breath sounds bibasally, no wheezes or crackles. on 3L of oxygen by nasal canula Cardiovascular: Regular rate, Regular Rhythm, Normal S1, Normal S2, No murmurs Abdomen: Bowel Sounds Present, Soft, Non Tender, Non-Distended, No Hepato- splenomegaly Extremities: No clubbing, No cyanosis, No edema, Capillary Refill Less than 3 Seconds Skin: No rashes, No breakdown Musculoskeletal: No Tenderness to Palpation of Joints or Extremities Lymphatic: No Cervical, Supraclavicular, or Inguinal Adenopathy Neurological: Cranial nerves II-XII grossly intact, Neuro grossly intact, Motor Exam 5/5 strength throughout Psych/Mental Status: Normal Affect, Appropriate, Alert and oriented to time, place, person, mood and affect Plan is to continue titrating oxygen to maintain sats >90%. Continue IV levofloxacin, IV Solu-Medrol and breathing treatments of bronchodilators. Continue diuresing with Lasix. Palliative care consulted yesterday. Appreciate recommendations. Rest as per MAXWELL Richards's notes which I have reviewed and endorsed. Inpatient E&M: [id number] Subs Hosp L2
--- NOTE | 2021-01-27 15:04 | NURSING ---
STUDENT NURSE CHARTING REVIEWED BY THIS RN.
[2021-01-27] MEDS: levoFLOXacin IV 750 MG/150 ML BAG 100 MG IV (21:20)
--- NOTE | 2021-01-27 23:33 | CPS ---
pt on home bipap unit with 3.5 lpm bled in
[2021-01-28] VITALS (18 sets, daily range): BP systolic 145–176; BP diastolic 70–91; PULSE 66–127; RESP 17–22; TEMP 36.4–37; O2SAT 92–99
[2021-01-28] MEDS: LORazepam 0.5 MG Tablet PO ×5 (00:26→23:09)
[2021-01-28] MEDS: cloNIDine HCl 0.2 MG Tablet PO ×3 (05:30→22:24)
[2021-01-28] MEDS: 0.9% Saline Lock 10 ML Syringe IV ×4 (05:30→17:41)
[2021-01-28] MEDS: morphine (oral solution) 10MG/0.5ML Syringe 2.5 MG SL/PO ×4 (05:39→23:09)
[2021-01-28 06:22] LABS: Absolute Lymphocyte Count 0.29 X10^3/uL (0.83-4.51); Absolute Neutrophil Count 12.3 X10^3/uL (2.0-7.7); Basophil# 0.01 X10^3/uL; Basophil% 0.1 % (0-1); Hematocrit 43.1 % (37-47); Hemoglobin 13.5 g/dL (12.0-15.0); Lymphocyte # 0.29 X10^3/ul (4.0); Lymphocyte % 2.1 % (19-41); Mean Corp Hgb Conc 31.3 g/dL (32-36); Mean Corpuscular Hgb 30.1 pg (27.0-32.0); Mean Corpuscular Volume 96.2 fL (81-99); Mean Platelet Vol. 9.6 fl (6.2-12.0); Monocyte# 1.11 X10^3/uL; Monocyte% 8.1 % (0-10); NRBC Flagged by Analyzer 0 % (0-5); Neutrophil % 89.3 % (47-70); POSITIVE DIFFERENTIAL YES; Platelet Count 303 K/mm3 (150-450); RBC Distribution Width SD 42.5 fl (35.1-43.9); Red Blood Count 4.48 M/mm3 (4.2-5.4); White Blood Count 13.8 K/mm3 (4.4-11.0)
[2021-01-28 06:33] LABS: Differential Indicated SCAN CRITERIA MET
[2021-01-28 06:55] LABS: Anion Gap 1 (5-15); BUN 32 mg/dL (7-18); BUN/Creat Ratio 38.6 RATIO (10-20); Calcium,Total 9.4 mg/dL (8.5-10.1); Chloride 93 mmol/L (98-107); Creatinine, Serum 0.83 mg/dL (0.55-1.02); EST Glomerular Filtration Rate 72 mL/min (>60); Est Glom Filt Rate - Afr Amer 87 mL/min (>60); Estimated Creatinine Clearance 52.13 ml/min; Glucose 107 mg/dL (74-106); Potassium 3.8 mmol/L (3.5-5.1); Sodium Level 136 mmol/L (136-145)
[2021-01-28] MEDS: Cholecalciferol (VIT D3) 25 MCG TABLET (1,000 UNITS) 50 MCG PO (09:04)
[2021-01-28] MEDS: TIOTROPIUM BROMIDE 18 MCG CAP.W.DEV INHALATION (09:04)
[2021-01-28] MEDS: Verapamil SR 240 MG Tablet 120 MG PO ×2 (09:05→22:24)
[2021-01-28] MEDS: Furosemide 40 MG/4 ML Vial IV (09:05)
[2021-01-28] MEDS: guaiFENesin 600 MG Tablet PO ×2 (09:05→22:25)
[2021-01-28] MEDS: Potassium Chloride Oral Tablet 20 MEQ PO (09:05)
[2021-01-28] MEDS: Spironolactone 25 MG Tablet PO (09:05)
[2021-01-28] MEDS: Multivitamins,Ther W-Minerals Tablet 1 TABLET PO (09:05)
[2021-01-28] MEDS: Paroxetine 20 MG Tablet PO (09:05)
[2021-01-28] MEDS: Famotidine 20 MG Tablet PO ×2 (09:05→22:26)
[2021-01-28] MEDS: Enoxaparin 40 MG/0.4 ML Syringe SC (09:05)
--- NOTE | 2021-01-28 10:53 | PN_ITS ---
Patient Problems: Active and Suspected Problems COPD exacerbation (Acute) Atypical chest pain (Acute) Acute hypercapnic respiratory failure (Acute) Shortness of breath (Acute) acute on chronic Subjective: The patient was seen and examined at the bedside this morning. Events from the last 24 hours have been reviewed. The patient is currently afebrile, hemodynamically stable and maintaining appropriate oxygen saturations on 4 L/min via nasal cannula. Objective: The patient's most recent lab work, culture data and imaging studies have all been personally reviewed. Rapid influenza screen was negative. Rapid coronavirus antigen testing was negative. - Physical Exam Vitals/I&O's: Vital Signs Temp Pulse Resp BP Pulse Ox 98.1 F 90 20 H 152/70 H 99 01/28/21 09:15 01/28/21 09:15 01/28/21 09:15 01/28/21 09:15 01/28/21 09:23 Oxygen Flow Rate (L/min) 4 Oxygen Delivery Method Nasal Cannula Weight: 186 lb 8.177 oz Body Mass Index (BMI) 32.2 Intake and Output for Last 24 Hours 01/26/21 01/27/21 01/28/21 23:59 23:59 23:59 Intake Total 1230 / 1230 945 / 945 Output Total 675 / 675 800 / 800 Balance 555 / 555 145 / 145 General: Alert, Cooperative HEENT: Atraumatic, PERRLA, Normocephalic Oral: No Gingival or Mucosal Lesions/ Ulcerations Neck: Supple, No Nodes, Trachea Midline Lungs: No rhonchi, No wheeze, No rales, Diminished Cardiovascular: Regular rate, Regular Rhythm Abdomen: Bowel Sounds Present, Soft, Non Tender, Obese Extremities: No clubbing, No cyanosis, No edema Skin: No breakdown Musculoskeletal: No Tenderness to Palpation of Joints or Extremities, No Muscle Wasting Lymphatic: No Cervical, Supraclavicular, or Inguinal Adenopathy Neurological: Cranial nerves II-XII grossly intact, Neuro grossly intact Psych/Mental Status: Normal Affect Labs (Last 48 Hours) 01/27/21 01/27/21 01/28/21 06:05 06:05 04:25 WBC 15.4 H 13.8 H RBC 4.57 4.48 Hgb 13.8 13.5 Hct 43.9 43.1 MCV 96.1 96.2 MCH 30.2 30.1 MCHC 31.4 L 31.3 L RDW Std Deviation 42.3 42.5 RDW Coeff of Ashley 12.0 12.0 Plt Count 316 303 MPV 9.3 9.6 Immature Gran % (Auto) 0.700 0.400 Neut % (Auto) 88.8 H 89.3 H Lymph % (Auto) 2.0 L 2.1 L [place] % (Auto) 8.4 8.1 Eos % (Auto) 0.0 0.0 Baso % (Auto) 0.1 0.1 Absolute Neuts (auto) 13.7 H 12.3 H Absolute Lymphs (auto) 0.30 L 0.29 L Nucleated RBC % 0 0 Sodium 137 Potassium 3.6 Chloride 94 L Carbon Dioxide 40.0 H Anion Gap 3 L BUN 31 H Creatinine 0.83 Estim Creat Clear Calc 52.13 Est GFR (MDRD) Af Amer 87 Est GFR (MDRD) Non-Af 72 BUN/Creatinine Ratio 37.5 H Glucose 129 H Calcium 9.7 01/28/21 04:25 WBC RBC Hgb Hct MCV MCH MCHC RDW Std Deviation RDW Coeff of Ashley Plt Count MPV Immature Gran % (Auto) Neut % (Auto) Lymph % (Auto) [place] % (Auto) Eos % (Auto) Baso % (Auto) Absolute Neuts (auto) Absolute Lymphs (auto) Nucleated RBC % Sodium 136 Potassium 3.8 Chloride 93 L Carbon Dioxide 42.0 H Anion Gap 1 L BUN 32 H Creatinine 0.83 Estim Creat Clear Calc 52.13 Est GFR (MDRD) Af Amer 87 Est GFR (MDRD) Non-Af 72 BUN/Creatinine Ratio 38.6 H Glucose 107 H Calcium 9.4 Microbiology 01/26/21 07:48 Mucosa - Nose Respiratory Panel (PCR) - Final Current Medications Acetaminophen (Acetaminophen 325 Mg Tablet) 650 mg PO Q6H PRN PRN PRN Reason: Pain Score 1-10/Temp > 100.7 F Cholecalciferol (Cholecalciferol (Vit D3) 25 Mcg Tablet (1,000 Units)) 50 mcg PO DAILY [facility] Last Admin: 01/28/21 09:04 Dose: 50 mcg Documented by: Clonidine (Clonidine Hcl 0.2 Mg Tablet) 0.2 mg PO TID [facility] Last Admin: 01/28/21 05:30 Dose: 0.2 mg Documented by: Enoxaparin Sodium (Enoxaparin 40 Mg/0.4 Ml Syringe) 40 mg SC DAILY [facility] Last Admin: 01/28/21 09:05 Dose: 40 mg Documented by: Famotidine (Famotidine 20 Mg Tablet) 20 mg PO BID [facility] Last Admin: 01/28/21 09:05 Dose: 20 mg Documented by: Furosemide (Furosemide 40 Mg/4 Ml Vial) 40 mg IV BID@1000,1800 [facility] Last Admin: 01/28/21 09:05 Dose: 40 mg Documented by: Guaifenesin (Guaifenesin 10 Ml Udc (200mg/10ml)) 20 ml PO Q4H PRN PRN PRN Reason: COUGH Guaifenesin (Guaifenesin 600 Mg Tablet) 600 mg PO BID [facility] Last Admin: 01/28/21 09:05 Dose: 600 mg Documented by: Hydralazine HCl (Hydralazine 20 Mg/Ml Vial) 10 mg IV Q4H PRN PRN PRN Reason: SBP > 160 Levofloxacin (Levaquin Iv) 750 mg in 150 mls @ 100 mls/hr IV Q48@2200 [facility] Last Infusion: 01/27/21 23:00 Dose: Infused Documented by: Sodium Chloride () 250 mls @ 15 mls/hr IV .[id number] PRN PRN Reason: Additional IVPB Infusion Last Infusion: 01/25/21 12:50 Dose: 0 mls/hr Documented by: Lorazepam (Lorazepam 0.5 Mg Tablet) 0.5 mg PO Q6 [facility] Last Admin: 01/28/21 05:30 Dose: 0.5 mg Documented by: Lorazepam (Lorazepam 0.5 Mg Tablet) 0.5 mg PO Q4H PRN PRN PRN Reason: ANXIETY/RESTLESSNESS/SLEEP Melatonin (Melatonin 3 Mg Tablet) 3 mg PO QHS PRN PRN PRN Reason: INSOMNIA Methylprednisolone (Methylprednisolone 40 Mg/Ml Vial) 40 mg IV Q8 [facility] Last Admin: 01/28/21 05:29 Dose: 40 mg Documented by: Morphine Sulfate (Morphine (Oral Solution) 10mg/0.5ml Syringe) 2.5 mg SL/PO Q2H PRN PRN PRN Reason: .SHORTNESS OF BREATH Last Admin: 01/28/21 05:39 Dose: 2.5 mg Documented by: Multivitamins/Minerals (Multivitamins,Ther W-Minerals Tablet) [facility] Last Admin: 01/28/21 09:05 Dose: 1 tablet Documented by: Nitroglycerin (Nitroglycerin (Inpatient Use) 0.4 Mg Tab.Subl) 0.4 mg SL Q5M PRN PRN Reason: CARDIAC/CHEST PAIN Non-Formulary Medication (Levalbuterol Tartrate) 1 - 2 puff INHALATION 4X/DAY PRN PRN PRN Reason: ALLERGIES Last Admin: 01/27/21 21:01 Dose: 2 puff Documented by: Non-Formulary Medication (Budesonide/Formoterol 160-4.5 [Symbicort 160-4.5 Mcg Inhaler]) 2 puff INHALATION BID [facility] Last Admin: 01/28/21 09:04 Dose: 2 puff Documented by: Ondansetron HCl (Ondansetron 4 Mg/2 Ml Vial) 4 mg IV Q8H PRN PRN PRN Reason: NAUSEA/VOMITING Oxycodone HCl (Oxycodone 5 Mg Tablet) 10 mg PO Q4H PRN PRN PRN Reason: Pain Score 4-5 Last Admin: 01/26/21 18:44 Dose: 10 mg Documented by: Paroxetine HCl (Paroxetine 20 Mg Tablet) 20 mg PO DAILY [facility] Last Admin: 01/28/21 09:05 Dose: 20 mg Documented by: Potassium Chloride (Potassium Chloride Oral Tablet 20 Meq) [facility] meq [facility] Last Admin: 01/28/21 09:05 Dose: 20 meq Documented by: Sodium Chloride (0.9% Saline Lock 10 Ml Syringe) 10 - 40 ml IV UD PRN PRN Reason: SALINE FLUSH Last Admin: 01/28/21 09:05 Dose: 10 ml Documented by: Spironolactone (Spironolactone 25 Mg Tablet) 25 mg PO DAILY [facility] Last Admin: 01/28/21 09:05 Dose: 25 mg Documented by: Tiotropium [place] (Tiotropium [place] 18 Mcg Cap.W.Dev) 18 mcg INHALATION DAILY [facility] Last Admin: 01/28/21 09:04 Dose: 18 mcg Documented by: Verapamil HCl (Verapamil Sr 240 Mg Tablet) 120 mg PO Q12 [facility] Last Admin: 01/28/21 09:05 Dose: 120 mg Documented by: Medical Necessity - Tobacco Use Smoking Status: Former smoker Tobacco Use: Cigarettes Assessment/Plan All Active Problems Nonhealing ulcer of right lower extremity with fat layer exposed (Acute) COPD exacerbation (Acute) Atypical chest pain (Acute) Acute hypercapnic respiratory failure (Acute) Shortness of breath (Acute) Ulcer of left lower extremity with fat layer exposed (Resolved) RECOMMENDATIONS: 1. Transition to p.o. Levaquin to complete 7-day treatment course. 2. Transition from IV to p.o. prednisone 40 mg daily to complete a taper at discharge. 3. Continue scheduled bronchodilators. 4. Continue diuresis as tolerated by hemodynamics and renal function. 5. Continue BiPAP therapy, at a minimum, with naps and nightly. 6. Wean supplemental oxygen to maintain saturations greater than 88%. 7. Perform walking oximetry prior to consideration for discharge home. 8. The patient can be discharged home from my perspective with instructions to follow-up with her last cleaner in 2 weeks. IMPRESSIONS: 1. Acute on chronic combined respiratory failure/COPD with exacerbation The patient has known end-stage COPD and chronic hypoxemic respiratory failure with her baseline 3 to 4 L/min oxygen requirement. She is currently being followed by Dr. Villela at [facility]. The patient remains symptomatic despite being on maximum for COPD therapy. At the present time, I agree with continuing antimicrobials with plans to complete a 7-day treatment course along with scheduled bronchodilators and steroids. Given that the patient does have baseline shortness of breath and anxiety despite bronchodilator therapy, recomm end continued follow-up with palliative care medicine. In addition, during her last office visit with her primary last cleaner, she was apparently told that she likely had 6 months or less to live. 2. Heart failure with preserved ejection fraction Continue gentle diuresis as tolerated by hemodynamics and renal function. 3. Hypertension/GERD/depression/anxiety Complicates care, management, recovery and prognosis. Continue home medications as indicated. This note was generated with [employer] dictation software. It may contain incorrect words, spelling, and punctuation that were not noted in checking the note before signing. Inpatient E&M: 42067 Subs Hosp L2
--- NOTE | 2021-01-28 11:03 | PN_ITS ---
Patient Problems: Active and Suspected Problems COPD exacerbation (Acute) Atypical chest pain (Acute) Acute hypercapnic respiratory failure (Acute) Shortness of breath (Acute) acute on chronic Subjective: Patient seen and examined. She feels better today but she still does not feel like she is ready to go home. Review of symptoms otherwise negative. She is on 4 L of oxygen which is her baseline. Vitals/I&O's: Vital Signs Temp Pulse Resp BP Pulse Ox 98.1 F 90 20 H 152/70 H 99 01/28/21 09:15 01/28/21 09:15 01/28/21 09:15 01/28/21 09:15 01/28/21 09:23 Oxygen Flow Rate (L/min) 4 Oxygen Delivery Method Nasal Cannula Weight: 186 lb 8.177 oz Body Mass Index (BMI) 32.2 Intake and Output for Last 24 Hours 01/26/21 01/27/21 01/28/21 23:59 23:59 23:59 Intake Total 1230 / 1230 945 / 945 Output Total 675 / 675 800 / 800 Balance 555 / 555 145 / 145 General: Alert, Oriented x3, Cooperative, No apparent distress HEENT: Atraumatic, PERRLA, EOMI, Normocephalic Oral: Dry Mucosa Neck: Supple, No JVD, Negative Carotid Bruits Lungs: mildly diminished breath sounds bibasally, no wheezes or crackles. on 4L of oxygen by nasal canula Cardiovascular: Regular rate, Regular Rhythm, Normal S1, Normal S2, No murmurs Abdomen: Bowel Sounds Present, Soft, Non Tender, Non-Distended, No Hepato- splenomegaly Extremities: No clubbing, No cyanosis, No edema, Capillary Refill Less than 3 Seconds Skin: No rashes, No breakdown Musculoskeletal: No Tenderness to Palpation of Joints or Extremities Lymphatic: No Cervical, Supraclavicular, or Inguinal Adenopathy Neurological: Cranial nerves II-XII grossly intact, Neuro grossly intact, Motor Exam 5/5 strength throughout Psych/Mental Status: Normal Affect, Appropriate, Alert and oriented to time, place, person, mood and affect Microbiology Past 72 Hours 01/26/21 07:48 Mucosa - Nose Respiratory Panel (PCR) - Final Laboratory Results 01/28/21 04:25: WBC 13.8 H, RBC 4.48, Hgb 13.5, Hct 43.1, MCV 96.2, MCH 30.1, MCHC 31.3 L, RDW Std Deviation 42.5, RDW Coeff of [place] 12.0, Plt Count 303, MPV 9.6, Immature Gran % (Auto) 0.400, Neut % (Auto) 89.3 H, Lymph % (Auto) 2.1 L, [place] % (Auto) 8.1, Eos % (Auto) 0.0, Baso % (Auto) 0.1, Absolute Neuts (auto) 12.3 H, Absolute Lymphs (auto) 0.29 L, Nucleated RBC % 0 01/28/21 04:25: Sodium 136, Potassium 3.8, Chloride 93 L, Carbon Dioxide 42.0 H, Anion Gap 1 L, BUN 32 H, Creatinine 0.83, Estim Creat Clear Calc 52.13, Est GFR (MDRD) Af Amer 87, Est GFR (MDRD) Non-Af 72, BUN/Creatinine Ratio 38.6 H, Glucose 107 H, Calcium 9.4 Current Medications Acetaminophen (Acetaminophen 325 Mg Tablet) 650 mg PO Q6H PRN PRN PRN Reason: Pain Score 1-10/Temp > 100.7 F Cholecalciferol (Cholecalciferol (Vit D3) 25 Mcg Tablet (1,000 Units)) 50 mcg PO DAILY [facility] Last Admin: 01/28/21 09:04 Dose: 50 mcg Documented by: Clonidine (Clonidine Hcl 0.2 Mg Tablet) 0.2 mg PO TID [facility] Last Admin: 01/28/21 05:30 Dose: 0.2 mg Documented by: Enoxaparin Sodium (Enoxaparin 40 Mg/0.4 Ml Syringe) 40 mg SC DAILY [facility] Last Admin: 01/28/21 09:05 Dose: 40 mg Documented by: Famotidine (Famotidine 20 Mg Tablet) 20 mg PO BID [facility] Last Admin: 01/28/21 09:05 Dose: 20 mg Documented by: Furosemide (Furosemide 40 Mg/4 Ml Vial) 40 mg IV BID@1000,1800 [facility] Last Admin: 01/28/21 09:05 Dose: 40 mg Documented by: Guaifenesin (Guaifenesin 10 Ml Udc (200mg/10ml)) 20 ml PO Q4H PRN PRN PRN Reason: COUGH Guaifenesin (Guaifenesin 600 Mg Tablet) 600 mg PO BID [facility] Last Admin: 01/28/21 09:05 Dose: 600 mg Documented by: Hydralazine HCl (Hydralazine 20 Mg/Ml Vial) 10 mg IV Q4H PRN PRN PRN Reason: SBP > 160 Levofloxacin (Levaquin Iv) 750 mg in 150 mls @ 100 mls/hr IV Q48@2200 [facility] Last Infusion: 01/27/21 23:00 Dose: Infused Documented by: Sodium Chloride () 250 mls @ 15 mls/hr IV .[id number] PRN PRN Reason: Additional IVPB Infusion Last Infusion: 01/25/21 12:50 Dose: 0 mls/hr Documented by: Lorazepam (Lorazepam 0.5 Mg Tablet) 0.5 mg PO Q6 [facility] Last Admin: 01/28/21 05:30 Dose: 0.5 mg Documented by: Lorazepam (Lorazepam 0.5 Mg Tablet) 0.5 mg PO Q4H PRN PRN PRN Reason: ANXIETY/RESTLESSNESS/SLEEP Melatonin (Melatonin 3 Mg Tablet) 3 mg PO QHS PRN PRN PRN Reason: INSOMNIA Methylprednisolone (Methylprednisolone 40 Mg/Ml Vial) 40 mg IV Q8 [facility] Last Admin: 01/28/21 05:29 Dose: 40 mg Documented by: Morphine Sulfate (Morphine (Oral Solution) 10mg/0.5ml Syringe) 2.5 mg SL/PO Q2H PRN PRN PRN Reason: .SHORTNESS OF BREATH Last Admin: 01/28/21 05:39 Dose: 2.5 mg Documented by: Multivitamins/Minerals (Multivitamins,Ther W-Minerals Tablet) [facility] Last Admin: 01/28/21 09:05 Dose: 1 tablet Documented by: Nitroglycerin (Nitroglycerin (Inpatient Use) 0.4 Mg Tab.Subl) 0.4 mg SL Q5M PRN PRN Reason: CARDIAC/CHEST PAIN Non-Formulary Medication (Levalbuterol Tartrate) 1 - 2 puff INHALATION 4X/DAY PRN PRN PRN Reason: ALLERGIES Last Admin: 01/27/21 21:01 Dose: 2 puff Documented by: Non-Formulary Medication (Budesonide/Formoterol 160-4.5 [Symbicort 160-4.5 Mcg Inhaler]) 2 puff INHALATION BID [facility] Last Admin: 01/28/21 09:04 Dose: 2 puff Documented by: Ondansetron HCl (Ondansetron 4 Mg/2 Ml Vial) 4 mg IV Q8H PRN PRN PRN Reason: NAUSEA/VOMITING Oxycodone HCl (Oxycodone 5 Mg Tablet) 10 mg PO Q4H PRN PRN PRN Reason: Pain Score 4-5 Last Admin: 01/26/21 18:44 Dose: 10 mg Documented by: Paroxetine HCl (Paroxetine 20 Mg Tablet) 20 mg PO DAILY [facility] Last Admin: 01/28/21 09:05 Dose: 20 mg Documented by: Potassium Chloride (Potassium Chloride Oral Tablet 20 Meq) 20 meq PO DAILYCM [facility] Last Admin: 01/28/21 09:05 Dose: 20 meq Documented by: Sodium Chloride (0.9% Saline Lock 10 Ml Syringe) 10 - 40 ml IV UD PRN PRN Reason: SALINE FLUSH Last Admin: 01/28/21 09:05 Dose: 10 ml Documented by: Spironolactone (Spironolactone 25 Mg Tablet) 25 mg PO DAILY [facility] Last Admin: 01/28/21 09:05 Dose: 25 mg Documented by: Tiotropium [place] (Tiotropium [place] 18 Mcg Cap.W.Dev) 18 mcg INHALATION DAILY [facility] Last Admin: 01/28/21 09:04 Dose: 18 mcg Documented by: Verapamil HCl (Verapamil Sr 240 Mg Tablet) 120 mg PO Q12 [facility] Last Admin: 01/28/21 09:05 Dose: 120 mg Documented by: STROKE Vital Signs/Narrative: Vital Signs Temp Pulse Resp BP Pulse Ox 01/28/21 09:23 99 01/28/21 09:15 98.1 F 90 20 H 152/70 H 99 Medical Necessity - Tobacco Use Smoking Status: Former smoker Tobacco Use: Cigarettes Assessment/Plan All Active Problems Nonhealing ulcer of right lower extremity with fat layer exposed (Acute) COPD exacerbation (Acute) Atypical chest pain (Acute) Acute hypercapnic respiratory failure (Acute) Shortness of breath (Acute) Ulcer of left lower extremity with fat layer exposed (Resolved) #Acute hypoxic respiratory failure due to COPD exacerbation and heart failure of unknown EF * on breathing treatments with bronchodilators * now on 4L of oxygen, which is her baseline. * Completed course of IV Solu-Medrol. Still on IV Lasix. We will switch to p.o. * Remains on IV levofloxacin. * monitor intake and output * 2D echo: EF of 75% and unable to assess diastolic dysfunction. * on IV levofloxacin * pulmonology on board. * #COPD exacerbation: as above #Acute on chronic HF of unknown EF * as above. also on spironolactone #Hypertension: on spironolactone and verapamil. #CHest pain: * musculoskeletal in nature. 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 troponins x 2 were negative. #Hyperlipidemia: not on any meds. Defer to PCP for management on outpatient basis #Metabolic alkalosis: * Bicarb is up to 42. * Could be compensatory in response to respiratory acidosis from COPD and respiratory failure. * Will switch Lasix to p.o. * #History of smoking: stable DVT prophylaxis: lovenox Inpatient E&M: 24399 Subs Hosp L2
--- NOTE | 2021-01-28 11:53 | CASEMGMT ---
Per [facility] medical, pt's order is for 3L continuous. Green sheet left on chart for increased home oxygen need. SStshayne HOLBROOK CM
[2021-01-28] MEDS: oxyCODONE 5 MG Tablet 10 MG PO (13:34)
[2021-01-28] MEDS: hydrALAZINE 20 MG/ML Vial 10 MG IV (17:41)
[2021-01-28] MEDS: Furosemide 40 MG Tablet PO (17:41)
[2021-01-29] VITALS (14 sets, daily range): BP systolic 152–181; BP diastolic 63–95; PULSE 85–100; RESP 16–24; TEMP 36.5–37.1; O2SAT 92–97
[2021-01-29] MEDS: 0.9% Saline Lock 10 ML Syringe IV ×3 (02:15→20:19)
[2021-01-29] MEDS: hydrALAZINE 20 MG/ML Vial 10 MG IV (02:15)
[2021-01-29] MEDS: LORazepam 0.5 MG Tablet PO ×4 (05:41→23:17)
[2021-01-29] MEDS: cloNIDine HCl 0.2 MG Tablet PO ×3 (05:41→20:18)
[2021-01-29 06:46] LABS: Absolute Lymphocyte Count 0.21 X10^3/uL (0.83-4.51); Absolute Neutrophil Count 16.6 X10^3/uL (2.0-7.7); Basophil# 0.02 X10^3/uL; Basophil% 0.1 % (0-1); Hematocrit 48.5 % (37-47); Hemoglobin 15.2 g/dL (12.0-15.0); Lymphocyte # 0.21 X10^3/ul (4.0); Lymphocyte % 1.1 % (19-41); Mean Corp Hgb Conc 31.3 g/dL (32-36); Mean Corpuscular Hgb 30.2 pg (27.0-32.0); Mean Corpuscular Volume 96.4 fL (81-99); Mean Platelet Vol. 9.7 fl (6.2-12.0); Monocyte# 1.36 X10^3/uL; Monocyte% 7.4 % (0-10); NRBC Flagged by Analyzer 0 % (0-5); Neutrophil # 16.58 X10^3/uL (2.7-7.7); Neutrophil % 90.6 % (47-70); POSITIVE DIFFERENTIAL YES; Platelet Count 332 K/mm3 (150-450); RBC Distribution Width CV 12.2 % (11.6-14.6); RBC Distribution Width SD 43.1 fl (35.1-43.9); Red Blood Count 5.03 M/mm3 (4.2-5.4); White Blood Count 18.3 K/mm3 (4.4-11.0)
[2021-01-29 07:04] LABS: Differential Indicated SCAN CRITERIA MET
[2021-01-29 07:56] LABS: Anion Gap 3 (5-15); BUN 38 mg/dL (7-18); Calcium,Total 9.5 mg/dL (8.5-10.1); Chloride 92 mmol/L (98-107); Creatinine, Serum 0.86 mg/dL (0.55-1.02); EST Glomerular Filtration Rate 68 mL/min (>60); Est Glom Filt Rate - Afr Amer 83 mL/min (>60); Estimated Creatinine Clearance 50.31 ml/min; Glucose 128 mg/dL (74-106); Sodium Level 135 mmol/L (136-145)
[2021-01-29] MEDS: Potassium Chloride Oral Tablet 20 MEQ PO (09:47)
[2021-01-29] MEDS: Multivitamins,Ther W-Minerals Tablet 1 TABLET PO (09:48)
[2021-01-29] MEDS: Verapamil SR 240 MG Tablet 120 MG PO ×2 (09:49→20:18)
[2021-01-29] MEDS: guaiFENesin 600 MG Tablet PO ×2 (09:50→20:18)
[2021-01-29] MEDS: Furosemide 40 MG Tablet PO ×2 (09:50→18:52)
[2021-01-29] MEDS: Enoxaparin 40 MG/0.4 ML Syringe SC (09:50)
[2021-01-29] MEDS: TIOTROPIUM BROMIDE 18 MCG CAP.W.DEV INHALATION (09:52)
[2021-01-29] MEDS: Paroxetine 20 MG Tablet PO (09:53)
[2021-01-29] MEDS: Famotidine 20 MG Tablet PO ×2 (09:54→20:19)
[2021-01-29] MEDS: Spironolactone 25 MG Tablet PO (09:54)
[2021-01-29] MEDS: morphine (oral solution) 10MG/0.5ML Syringe 2.5 MG SL/PO ×2 (10:15→18:52)
--- NOTE | 2021-01-29 11:17 | PN_ITS ---
<Julieta Gutierrez PROJECT MANAGEMENT CONSULTANT - Last Filed: 01/29/21 11:23> Patient Problems: Active and Suspected Problems COPD exacerbation (Acute) Atypical chest pain (Acute) Acute hypercapnic respiratory failure (Acute) Shortness of breath (Acute) acute on chronic Subjective: Patient seen and examined. Reports increased shortness of breath. Remains on 3 L supplemental oxygen. Patient is already established with palliative care. Discussed hospice with patient and she would like to talk to her and think about this further. - Physical Exam Vitals/I&O's: Vital Signs Temp Pulse Resp BP Pulse Ox 98 F 85 16 152/80 H 96 01/29/21 08:00 01/29/21 08:00 01/29/21 08:00 01/29/21 08:00 01/29/21 08:01 Oxygen Flow Rate (L/min) 3 Oxygen Delivery Method Nasal Cannula Weight: 185 lb 1.6 oz Body Mass Index (BMI) 32.2 Intake and Output for Last 24 Hours 01/27/21 01/28/21 01/29/21 23:59 23:59 23:59 Intake Total 945 / 945 460 / 460 650 / 650 Output Total 800 / 800 950 / 950 425 / 425 Balance 145 / 145 -490 / -490 225 / 225 General: Alert, Oriented x3, Cooperative HEENT: Atraumatic, PERRLA, EOMI, Normocephalic Neck: Supple, No JVD, Negative Carotid Bruits Lungs: Clear to auscultation, Diminished Cardiovascular: Regular rate, No murmurs Abdomen: Bowel Sounds Present, Soft, Non Tender, Non-Distended Extremities: No clubbing, No cyanosis, No edema, Capillary Refill Less than 3 Seconds Skin: No rashes, No breakdown Musculoskeletal: No Tenderness to Palpation of Joints or Extremities Neurological: Cranial nerves II-XII grossly intact, Neuro grossly intact Psych/Mental Status: Anxious Microbiology Past 72 Hours 01/26/21 07:48 Mucosa - Nose Respiratory Panel (PCR) - Final Laboratory Results 01/29/21 05:24: WBC 18.3 H, RBC 5.03, Hgb 15.2 H, Hct 48.5 H, MCV 96.4, MCH 30.2, MCHC 31.3 L, RDW Std Deviation 43.1, RDW Coeff of Ashley 12.2, Plt Count 332, MPV 9.7, Immature Gran % (Auto) 0.800, Neut % (Auto) 90.6 H, Lymph % (Auto) 1.1 L, [place] % (Auto) 7.4, Eos % (Auto) 0.0, Baso % (Auto) 0.1, Absolute Neuts (auto) 16.6 H, Absolute Lymphs (auto) 0.21 L, Nucleated RBC % 0 01/29/21 05:24: Sodium 135 L, Potassium 4.0, Chloride 92 L, Carbon Dioxide 40.0 H, Anion Gap 3 L, BUN 38 H, Creatinine 0.86, Estim Creat Clear Calc 50.31, Est GFR (MDRD) Af Amer 83, Est GFR (MDRD) Non-Af 68, BUN/Creatinine Ratio 44.0 H, Glucose 128 H, Calcium 9.5 Current Medications Acetaminophen (Acetaminophen 325 Mg Tablet) 650 mg PO Q6H PRN PRN PRN Reason: Pain Score 1-10/Temp > 100.7 F Cholecalciferol (Cholecalciferol (Vit D3) 25 Mcg Tablet (1,000 Units)) 50 mcg PO DAILY [facility] Last Admin: 01/28/21 09:04 Dose: 50 mcg Documented by: Clonidine (Clonidine Hcl 0.2 Mg Tablet) 0.2 mg PO TID [facility] Last Admin: 01/29/21 05:41 Dose: 0.2 mg Documented by: Enoxaparin Sodium (Enoxaparin 40 Mg/0.4 Ml Syringe) 40 mg SC DAILY [facility] Last Admin: 01/29/21 09:50 Dose: 40 mg Documented by: Famotidine (Famotidine 20 Mg Tablet) 20 mg PO BID [facility] Last Admin: 01/29/21 09:54 Dose: 20 mg Documented by: Furosemide (Furosemide 40 Mg Tablet) 40 mg PO BID@1000,1800 [facility] Last Admin: 01/29/21 09:50 Dose: 40 mg Documented by: Guaifenesin (Guaifenesin 10 Ml Udc (200mg/10ml)) 20 ml PO Q4H PRN PRN PRN Reason: COUGH Guaifenesin (Guaifenesin 600 Mg Tablet) 600 mg PO BID [facility] Last Admin: 01/29/21 09:50 Dose: 600 mg Documented by: Hydralazine HCl (Hydralazine 20 Mg/Ml Vial) 10 mg IV Q4H PRN PRN PRN Reason: SBP > 160 Last Admin: 01/29/21 02:15 Dose: 10 mg Documented by: Levofloxacin (Levaquin Iv) 750 mg in 150 mls @ 100 mls/hr IV Q48@2200 [facility] Last Infusion: 01/27/21 23:00 Dose: Infused Documented by: Sodium Chloride () 250 mls @ 15 mls/hr IV .[id number] PRN PRN Reason: Additional IVPB Infusion Last Infusion: 01/25/21 12:50 Dose: 0 mls/hr Documented by: Lorazepam (Lorazepam 0.5 Mg Tablet) 0.5 mg PO Q6 [facility] Last Admin: 01/29/21 05:41 Dose: 0.5 mg Documented by: Lorazepam (Lorazepam 0.5 Mg Tablet) 0.5 mg PO Q4H PRN PRN PRN Reason: ANXIETY/RESTLESSNESS/SLEEP Melatonin (Melatonin 3 Mg Tablet) 3 mg PO QHS PRN PRN PRN Reason: INSOMNIA Methylprednisolone (Methylprednisolone 40 Mg/Ml Vial) 40 mg IV Q8 [facility] Last Admin: 01/29/21 05:41 Dose: 40 mg Documented by: Morphine Sulfate (Morphine (Oral Solution) 10mg/0.5ml Syringe) 2.5 mg SL/PO Q2H PRN PRN PRN Reason: .SHORTNESS OF BREATH Last Admin: 01/29/21 10:15 Dose: 2.5 mg Documented by: Multivitamins/Minerals (Multivitamins,Ther W-Minerals Tablet) 1 tablet PO DAILYCM [facility] Last Admin: 01/29/21 09:48 Dose: 1 tablet Documented by: Nitroglycerin (Nitroglycerin (Inpatient Use) 0.4 Mg Tab.Subl) 0.4 mg SL Q5M PRN PRN Reason: CARDIAC/CHEST PAIN Non-Formulary Medication (Levalbuterol Tartrate) 1 - 2 puff INHALATION 4X/DAY PRN PRN PRN Reason: ALLERGIES Last Admin: 01/27/21 21:01 Dose: 2 puff Documented by: Non-Formulary Medication (Budesonide/Formoterol 160-4.5 [Symbicort 160-4.5 Mcg Inhaler]) 2 puff INHALATION BID [facility] Last Admin: 01/29/21 09:48 Dose: 2 puff Documented by: Ondansetron HCl (Ondansetron 4 Mg/2 Ml Vial) 4 mg IV Q8H PRN PRN PRN Reason: NAUSEA/VOMITING Oxycodone HCl (Oxycodone 5 Mg Tablet) 10 mg PO Q4H PRN PRN PRN Reason: Pain Score 4-5 Last Admin: 01/28/21 13:34 Dose: 10 mg Documented by: Paroxetine HCl (Paroxetine 20 Mg Tablet) 20 mg PO DAILY [facility] Last Admin: 01/29/21 09:53 Dose: 20 mg Documented by: Potassium Chloride (Potassium Chloride Oral Tablet 20 Meq) 20 meq PO DAILYCM [facility] Last Admin: 01/29/21 09:47 Dose: 20 meq Documented by: Sodium Chloride (0.9% Saline Lock 10 Ml Syringe) 10 - 40 ml IV UD PRN PRN Reason: SALINE FLUSH Last Admin: 01/29/21 05:41 Dose: 10 ml Documented by: Spironolactone (Spironolactone 25 Mg Tablet) 25 mg PO DAILY [facility] Last Admin: 01/29/21 09:54 Dose: 25 mg Documented by: Tiotropium [place] (Tiotropium [place] 18 Mcg Cap.W.Dev) 18 mcg INHALATION DAILY [facility] Last Admin: 01/29/21 09:52 Dose: 18 mcg Documented by: Verapamil HCl (Verapamil Sr 240 Mg Tablet) 120 mg PO Q12 [facility] Last Admin: 01/29/21 09:49 Dose: 120 mg Documented by: Medical Necessity - Tobacco Use Smoking Status: Former smoker Tobacco Use: Cigarettes Assessment/Plan All Active Problems Nonhealing ulcer of right lower extremity with fat layer exposed (Acute) COPD exacerbation (Acute) Atypical chest pain (Acute) Acute hypercapnic respiratory failure (Acute) Shortness of breath (Acute) Ulcer of left lower extremity with fat layer exposed (Resolved) 1. Acute on chronic hypoxic respiratory failure secondary to exacerbation of COPD and acute on chronic heart failure with preserved ejection fraction- continue supplement oxygen to maintain O2 above 90%. Patient wears 3 L nasal cannula at baseline with CPAP at night. Repeat home oxygen testing prior to discharge. Pulmonary medicine consulted. Palliative medicine consulted as well. Patient considering home with hospice. 2. COPD with exacerbation-respiratory panel, Covid negative. Continue IV Solu- Medrol. Allergy to albuterol. On Levaquin empirically to complete 7-day course. 3. Acute on chronic heart failure with preserved ejection fraction-BNP 296. Chest x-ray with left-sided pleural effusion. Echocardiogram demonstrates an EF of 75%. Transitioned to oral Lasix. Strict I&O. Daily weight. Jason wraps bilateral lower extremities. 4. Hypertension- stable, continue clonidine, spironolactone, verapamil. 5. Hyperlipidemia- not on statin. 6. History of tobacco use-encouraged continued cessation. DVT prophylaxis- Lovenox sc Discharge planning: Home with palliative versus hospice. This patient was seen by MAXWELL Richards under the supervision of Dr. Gregg. <Carolyne Gregg - Last Filed: 01/29/21 15:05> - Physical Exam Vitals/I&O's: Vital Signs Temp Pulse Resp BP Pulse Ox 98 F 85 20 H 152/80 H 97 01/29/21 08:00 01/29/21 08:00 01/29/21 10:00 01/29/21 08:00 01/29/21 11:58 Oxygen Flow Rate (L/min) 3 Oxygen Delivery Method Nasal Cannula Weight: 185 lb 1.6 oz Body Mass Index (BMI) 32.2 Intake and Output for Last 24 Hours 01/27/21 01/28/21 01/29/21 23:59 23:59 23:59 Intake Total 945 / 945 460 / 460 950 / 950 Output Total 800 / 800 950 / 950 425 / 425 Balance 145 / 145 -490 / -490 525 / 525 Laboratory Results 01/29/21 05:24: WBC 18.3 H, RBC 5.03, Hgb 15.2 H, Hct 48.5 H, MCV 96.4, MCH 30.2, MCHC 31.3 L, RDW Std Deviation 43.1, RDW Coeff of Ashley 12.2, Plt Count 332, MPV 9.7, Immature Gran % (Auto) 0.800, Neut % (Auto) 90.6 H, Lymph % (Auto) 1.1 L, [place] % (Auto) 7.4, Eos % (Auto) 0.0, Baso % (Auto) 0.1, Absolute Neuts (auto) 16.6 H, Absolute Lymphs (auto) 0.21 L, Nucleated RBC % 0 01/29/21 05:24: Sodium 135 L, Potassium 4.0, Chloride 92 L, Carbon Dioxide 40.0 H, Anion Gap 3 L, BUN 38 H, Creatinine 0.86, Estim Creat Clear Calc 50.31, Est GFR (MDRD) Af Amer 83, Est GFR (MDRD) Non-Af 68, BUN/Creatinine Ratio 44.0 H, Glucose 128 H, Calcium 9.5 Current Medications Acetaminophen (Acetaminophen 325 Mg Tablet) 650 mg PO Q6H PRN PRN PRN Reason: Pain Score 1-10/Temp > 100.7 F Cholecalciferol (Cholecalciferol (Vit D3) 25 Mcg Tablet (1,000 Units)) 50 mcg PO DAILY [facility] Last Admin: 01/29/21 11:51 Dose: Not Given Documented by: Clonidine (Clonidine Hcl 0.2 Mg Tablet) 0.2 mg PO TID [facility] Last Admin: 01/29/21 05:41 Dose: 0.2 mg Documented by: Enoxaparin Sodium (Enoxaparin 40 Mg/0.4 Ml Syringe) 40 mg SC DAILY [facility] Last Admin: 01/29/21 09:50 Dose: 40 mg Documented by: Famotidine (Famotidine 20 Mg Tablet) 20 mg PO BID [facility] Last Admin: 01/29/21 09:54 Dose: 20 mg Documented by: Furosemide (Furosemide 40 Mg Tablet) 40 mg PO BID@1000,1800 [facility] Last Admin: 01/29/21 09:50 Dose: 40 mg Documented by: Guaifenesin (Guaifenesin 10 Ml Udc (200mg/10ml)) 20 ml PO Q4H PRN PRN PRN Reason: COUGH Guaifenesin (Guaifenesin 600 Mg Tablet) 600 mg PO BID [facility] Last Admin: 01/29/21 09:50 Dose: 600 mg Documented by: Hydralazine HCl (Hydralazine 20 Mg/Ml Vial) 10 mg IV Q4H PRN PRN PRN Reason: SBP > 160 Last Admin: 01/29/21 02:15 Dose: 10 mg Documented by: Levofloxacin (Levaquin Iv) 750 mg in 150 mls @ 100 mls/hr IV Q48@2200 [facility] Last Infusion: 01/27/21 23:00 Dose: Infused Documented by: Sodium Chloride () 250 mls @ 15 mls/hr IV .[id number] PRN PRN Reason: Additional IVPB Infusion Last Infusion: 01/25/21 12:50 Dose: 0 mls/hr Documented by: Lorazepam (Lorazepam 0.5 Mg Tablet) 0.5 mg PO Q6 [facility] Last Admin: 01/29/21 12:46 Dose: 0.5 mg Documented by: Lorazepam (Lorazepam 0.5 Mg Tablet) 0.5 mg PO Q4H PRN PRN PRN Reason: ANXIETY/RESTLESSNESS/SLEEP Melatonin (Melatonin 3 Mg Tablet) 3 mg PO QHS PRN PRN PRN Reason: INSOMNIA Methylprednisolone (Methylprednisolone 40 Mg/Ml Vial) 40 mg IV Q8 [facility] Last Admin: 01/29/21 05:41 Dose: 40 mg Documented by: Morphine Sulfate (Morphine (Oral Solution) 10mg/0.5ml Syringe) 2.5 mg SL/PO Q2H PRN PRN PRN Reason: .SHORTNESS OF BREATH Last Admin: 01/29/21 10:15 Dose: 2.5 mg Documented by: Multivitamins/Minerals (Multivitamins,Ther W-Minerals Tablet) 1 tablet PO DAILYCM [facility] Last Admin: 01/29/21 09:48 Dose: 1 tablet Documented by: Nitroglycerin (Nitroglycerin (Inpatient Use) 0.4 Mg Tab.Subl) 0.4 mg SL Q5M PRN PRN Reason: CARDIAC/CHEST PAIN Non-Formulary Medication (Levalbuterol Tartrate) 1 - 2 puff INHALATION 4X/DAY PRN PRN PRN Reason: ALLERGIES Last Admin: 01/27/21 21:01 Dose: 2 puff Documented by: Non-Formulary Medication (Budesonide/Formoterol 160-4.5 [Symbicort 160-4.5 Mcg Inhaler]) 2 puff INHALATION BID [facility] Last Admin: 01/29/21 09:48 Dose: 2 puff Documented by: Ondansetron HCl (Ondansetron 4 Mg/2 Ml Vial) 4 mg IV Q8H PRN PRN PRN Reason: NAUSEA/VOMITING Oxycodone HCl (Oxycodone 5 Mg Tablet) 10 mg PO Q4H PRN PRN PRN Reason: Pain Score 4-5 Last Admin: 01/28/21 13:34 Dose: 10 mg Documented by: Paroxetine HCl (Paroxetine 20 Mg Tablet) 20 mg PO DAILY [facility] Last Admin: 01/29/21 09:53 Dose: 20 mg Documented by: Potassium Chloride (Potassium Chloride Oral Tablet 20 Meq) 20 meq PO DAILYCM [facility] Last Admin: 01/29/21 09:47 Dose: 20 meq Documented by: Sodium Chloride (0.9% Saline Lock 10 Ml Syringe) 10 - 40 ml IV UD PRN PRN Reason: SALINE FLUSH Last Admin: 01/29/21 05:41 Dose: 10 ml Documented by: Spironolactone (Spironolactone 25 Mg Tablet) 25 mg PO DAILY [facility] Last Admin: 01/29/21 09:54 Dose: 25 mg Documented by: Tiotropium [place] (Tiotropium [place] 18 Mcg Cap.W.Dev) 18 mcg INHALATION DAILY [facility] Last Admin: 01/29/21 09:52 Dose: 18 mcg Documented by: Verapamil HCl (Verapamil Sr 240 Mg Tablet) 120 mg PO Q12 [facility] Last Admin: 01/29/21 09:49 Dose: 120 mg Documented by: Assessment/Plan Patient seen by Julieta Gutierrez PROJECT MANAGEMENT CONSULTANT-C under my supervision Patient seen and examined. Still complains of shortness of breath and says she had a bad spell in the night when she got very short of breath. Patient states she wants 1 more day. I did weight loss counselor patient extensively today that she had end- stage COPD and 1 more day was not going to help him feel any better. I broached possible placement but patient is adamant that she wants to go home. I counseled patient that if she did want to go home, then just consider possibly going home with hospice + visits. Been readmitted sooner rather than later because of her severe COPD. Patient says that she is on board with palliative care and hospice but her gets very tearful when she brings up the topic of her end-stage COPD. She would therefore like some more time to get her on board with this. She has remained hemodynamically stable otherwise. O/E: Vital Signs Temp Pulse Resp BP Pulse Ox 98 F 85 20 H 152/80 H 97 01/29/21 08:00 01/29/21 08:00 01/29/21 10:00 01/29/21 08:00 01/29/21 11:58 General: Alert, Oriented x3, Cooperative, No apparent distress HEENT: Atraumatic, PERRLA, EOMI, Normocephalic Oral: Dry Mucosa Neck: Supple, No JVD, Negative Carotid Bruits Lungs: mildly diminished breath sounds bibasally, no wheezes or crackles. on 4L of oxygen by nasal canula Cardiovascular: Regular rate, Regular Rhythm, Normal S1, Normal S2, No murmurs Abdomen: Bowel Sounds Present, Soft, Non Tender, Non-Distended, No Hepato- splenomegaly Extremities: No clubbing, No cyanosis, No edema, Capillary Refill Less than 3 Seconds Skin: No rashes, No breakdown Musculoskeletal: No Tenderness to Palpation of Joints or Extremities Lymphatic: No Cervical, Supraclavicular, or Inguinal Adenopathy Neurological: Cranial nerves II-XII grossly intact, Neuro grossly intact, Motor Exam 5/5 strength throughout Psych/Mental Status: Normal Affect, Appropriate, Alert and oriented to time, place, person, mood and affect Plan is to continue with oxygen as needed for shortness of breath. Palliative care to see patient today again. Continue IV Solu-Medrol and IV levofloxacin. Continue oral Lasix as well. Patient to decide about possibly going home with hospice. Rest as per Julieta Gutierrez NP-[place]'s notes which I have reviewed and endorsed. Inpatient E&M: [id number] Subs Hosp L2
--- NOTE | 2021-01-29 13:45 | CASEMGMT ---
As per SUBSTITUTE NURSE, pt would like to meet w/hospice for possible hospice at home, met w/palliative already on this admission. SW called [facility], faxed referral, Eunice will call pt directly to set up time to meet. SW informed pt and in room that hospice will call her directly to set up meeting. SW remains available for any additional needs. DARLIN Jesus
[2021-01-29] MEDS: Cholecalciferol (VIT D3) 25 MCG TABLET (1,000 UNITS) 50 MCG PO (16:33)
[2021-01-29] MEDS: levoFLOXacin IV 750 MG/150 ML BAG 100 MG IV (20:17)
[2021-01-30] VITALS (9 sets, daily range): BP systolic 157–196; BP diastolic 66–92; PULSE 71–106; RESP 19–22; TEMP 36.2–36.6; O2SAT 96–98
[2021-01-30] MEDS: cloNIDine HCl 0.2 MG Tablet PO ×3 (05:40→20:56)
[2021-01-30] MEDS: 0.9% Saline Lock 10 ML Syringe IV ×3 (05:40→20:56)
[2021-01-30] MEDS: LORazepam 0.5 MG Tablet PO ×4 (05:40→23:08)
[2021-01-30] MEDS: morphine (oral solution) 10MG/0.5ML Syringe 2.5 MG SL/PO ×5 (06:44→23:08)
[2021-01-30] MEDS: Cholecalciferol (VIT D3) 25 MCG TABLET (1,000 UNITS) 50 MCG PO (09:25)
[2021-01-30] MEDS: Verapamil SR 240 MG Tablet 120 MG PO ×2 (09:25→20:56)
[2021-01-30] MEDS: Famotidine 20 MG Tablet PO ×2 (09:26→20:57)
[2021-01-30] MEDS: Spironolactone 25 MG Tablet PO (09:26)
[2021-01-30] MEDS: Paroxetine 20 MG Tablet PO (09:26)
[2021-01-30] MEDS: Potassium Chloride Oral Tablet 20 MEQ PO (09:27)
[2021-01-30] MEDS: guaiFENesin 600 MG Tablet PO ×2 (09:27→20:56)
[2021-01-30] MEDS: Multivitamins,Ther W-Minerals Tablet 1 TABLET PO (09:27)
[2021-01-30] MEDS: Furosemide 40 MG Tablet PO ×2 (09:27→17:56)
[2021-01-30] MEDS: Enoxaparin 40 MG/0.4 ML Syringe SC (09:28)
[2021-01-30] MEDS: TIOTROPIUM BROMIDE 18 MCG CAP.W.DEV INHALATION (09:28)
--- NOTE | 2021-01-30 10:12 | PN_ITS ---
<Amol Gutierrezssica [employer] C[employer] WORKER - Last Filed: 01/30/21 10:17> Patient Problems: Active and Suspected Problems COPD exacerbation (Acute) Atypical chest pain (Acute) Acute hypercapnic respiratory failure (Acute) Shortness of breath (Acute) acute on chronic Subjective: Patient seen and examined. Her and her met with hospice yesterday afternoon and are amendable to home with hospice at discharge. Per patient, hospice will come to her home tomorrow to set up equipment. Patient reports she feels somewhat relieved with making this decision however still wants to have the discussion with her 2 sons. Denies increased shortness of breath. Plan for discharge home with hospice tomorrow. - Physical Exam Vitals/I&O's: Vital Signs Temp Pulse Resp BP Pulse Ox 97.9 F 98 19 H 157/66 H 98 01/30/21 09:18 01/30/21 09:18 01/30/21 09:18 01/30/21 09:18 01/30/21 09:18 Oxygen Flow Rate (L/min) 3 Oxygen Delivery Method Nasal Cannula Weight: 185 lb 13.595 oz Body Mass Index (BMI) 32.2 Intake and Output for Last 24 Hours 01/28/21 01/29/21 01/30/21 23:59 23:59 23:59 Intake Total 460 / 460 1420 / 1420 50 / 50 Output Total 950 / 950 725 / 725 Balance -490 / -490 695 / 695 50 / 50 General: Alert, Oriented x3, Cooperative HEENT: Atraumatic, PERRLA, EOMI, Normocephalic Neck: Supple, No JVD, Negative Carotid Bruits Lungs: Clear to auscultation, Diminished Cardiovascular: Regular rate, No murmurs Abdomen: Bowel Sounds Present, Soft, Non Tender, Non-Distended Extremities: No clubbing, No cyanosis, No edema, Capillary Refill Less than 3 Seconds Skin: No rashes, No breakdown Musculoskeletal: No Tenderness to Palpation of Joints or Extremities Neurological: Cranial nerves II-XII grossly intact, Neuro grossly intact Psych/Mental Status: Normal Affect Current Medications Acetaminophen (Acetaminophen 325 Mg Tablet) 650 mg PO Q6H PRN PRN PRN Reason: Pain Score 1-10/Temp > 100.7 F Cholecalciferol (Cholecalciferol (Vit D3) 25 Mcg Tablet (1,000 Units)) 50 mcg PO DAILY [facility] Last Admin: 01/30/21 09:25 Dose: 50 mcg Documented by: Clonidine (Clonidine Hcl 0.2 Mg Tablet) 0.2 mg PO TID [facility] Last Admin: 01/30/21 05:40 Dose: 0.2 mg Documented by: Enoxaparin Sodium (Enoxaparin 40 Mg/0.4 Ml Syringe) 40 mg SC DAILY [facility] Last Admin: 01/30/21 09:28 Dose: 40 mg Documented by: Famotidine (Famotidine 20 Mg Tablet) 20 mg PO BID [facility] Last Admin: 01/30/21 09:26 Dose: 20 mg Documented by: Furosemide (Furosemide 40 Mg Tablet) 40 mg PO BID@1000,1800 [facility] Last Admin: 01/30/21 09:27 Dose: 40 mg Documented by: Guaifenesin (Guaifenesin 10 Ml Udc (200mg/10ml)) 20 ml PO Q4H PRN PRN PRN Reason: COUGH Guaifenesin (Guaifenesin 600 Mg Tablet) 600 mg PO BID [facility] Last Admin: 01/30/21 09:27 Dose: 600 mg Documented by: Hydralazine HCl (Hydralazine 20 Mg/Ml Vial) 10 mg IV Q4H PRN PRN PRN Reason: SBP > 160 Last Admin: 01/29/21 02:15 Dose: 10 mg Documented by: Levofloxacin (Levaquin Iv) 750 mg in 150 mls @ 100 mls/hr IV Q48@2200 [facility] Last Infusion: 01/29/21 21:48 Dose: Infused Documented by: Sodium Chloride () 250 mls @ 15 mls/hr IV .[id number] PRN PRN Reason: Additional IVPB Infusion Last Infusion: 01/25/21 12:50 Dose: 0 mls/hr Documented by: Lorazepam (Lorazepam 0.5 Mg Tablet) 0.5 mg PO Q6 [facility] Last Admin: 01/30/21 05:40 Dose: 0.5 mg Documented by: Lorazepam (Lorazepam 0.5 Mg Tablet) 0.5 mg PO Q4H PRN PRN PRN Reason: ANXIETY/RESTLESSNESS/SLEEP Melatonin (Melatonin 3 Mg Tablet) 3 mg PO QHS PRN PRN PRN Reason: INSOMNIA Methylprednisolone (Methylprednisolone 40 Mg/Ml Vial) 40 mg IV Q8 [facility] Last Admin: 01/30/21 05:40 Dose: 40 mg Documented by: Morphine Sulfate (Morphine (Oral Solution) 10mg/0.5ml Syringe) 2.5 mg SL/PO Q2H PRN PRN PRN Reason: .SHORTNESS OF BREATH Last Admin: 01/30/21 09:31 Dose: 2.5 mg Documented by: Multivitamins/Minerals (Multivitamins,Ther W-Minerals Tablet) [facility] Last Admin: 01/30/21 09:27 Dose: 1 tablet Documented by: Nitroglycerin (Nitroglycerin (Inpatient Use) 0.4 Mg Tab.Subl) 0.4 mg SL Q5M PRN PRN Reason: CARDIAC/CHEST PAIN Non-Formulary Medication (Levalbuterol Tartrate) 1 - 2 puff INHALATION 4X/DAY PRN PRN PRN Reason: ALLERGIES Last Admin: 01/27/21 21:01 Dose: 2 puff Documented by: Non-Formulary Medication (Budesonide/Formoterol 160-4.5 [Symbicort 160-4.5 Mcg Inhaler]) 2 puff INHALATION BID [facility] Last Admin: 01/30/21 09:31 Dose: 2 puff Documented by: Ondansetron HCl (Ondansetron 4 Mg/2 Ml Vial) 4 mg IV Q8H PRN PRN PRN Reason: NAUSEA/VOMITING Oxycodone HCl (Oxycodone 5 Mg Tablet) 10 mg PO Q4H PRN PRN PRN Reason: Pain Score 4-5 Last Admin: 01/28/21 13:34 Dose: 10 mg Documented by: Paroxetine HCl (Paroxetine 20 Mg Tablet) 20 mg PO DAILY [facility] Last Admin: 01/30/21 09:26 Dose: 20 mg Documented by: Potassium Chloride (Potassium Chloride Oral Tablet 20 Meq) [facility] Last Admin: 01/30/21 09:27 Dose: 20 meq Documented by: Sodium Chloride (0.9% Saline Lock 10 Ml Syringe) 10 - 40 ml IV UD PRN PRN Reason: SALINE FLUSH Last Admin: 01/30/21 05:40 Dose: 10 ml Documented by: Spironolactone (Spironolactone 25 Mg Tablet) 25 mg PO DAILY [facility] Last Admin: 01/30/21 09:26 Dose: 25 mg Documented by: Tiotropium [place] (Tiotropium [place] 18 Mcg Cap.W.Dev) 18 mcg INHALATION DAILY [facility] Last Admin: 01/30/21 09:28 Dose: 18 mcg Documented by: Verapamil HCl (Verapamil Sr 240 Mg Tablet) 120 mg PO Q12 [facility] Last Admin: 01/30/21 09:25 Dose: 120 mg Documented by: Medical Necessity - Tobacco Use Smoking Status: Former smoker Tobacco Use: Cigarettes Assessment/Plan All Active Problems Nonhealing ulcer of right lower extremity with fat layer exposed (Acute) COPD exacerbation (Acute) Atypical chest pain (Acute) Acute hypercapnic respiratory failure (Acute) Shortness of breath (Acute) Ulcer of left lower extremity with fat layer exposed (Resolved) 1. Acute on chronic hypoxic respiratory failure secondary to exacerbation of COPD and acute on chronic heart failure with preserved ejection fraction- continue supplement oxygen to maintain O2 above 90%. Patient wears 3 L nasal cannula at baseline with CPAP at night. Repeat home oxygen testing prior to discharge. Pulmonary medicine consulted. Home with hospice tomorrow pending equ [facility] thumb region setup. 2. COPD with exacerbation-respiratory panel, Covid negative. Continue IV Solu- Medrol. Allergy to albuterol. On Levaquin empirically to complete 7-day course. Transition to prednisone taper at discharge. 3. Acute on chronic heart failure with preserved ejection fraction-BNP 296. Chest x-ray with left-sided pleural effusion. Echocardiogram demonstrates an EF of 75%. Transitioned to oral Lasix. Strict I&O. Daily weight. Jason wraps bilateral lower extremities. 4. Hypertension- stable, continue clonidine, spironolactone, verapamil. 5. Hyperlipidemia- not on statin. 6. History of tobacco use-encouraged continued cessation. DVT prophylaxis- Lovenox sc Discharge planning: Home with hospice 01/31/21. This patient was seen by MAXWELL Richards under the supervision of Dr. Gregg. <Carolyne Gregg - Last Filed: 01/30/21 13:47> - Physical Exam Vitals/I&O's: Vital Signs Temp Pulse Resp BP Pulse Ox 97.9 F 103 H 19 H 157/66 H 98 01/30/21 09:18 01/30/21 12:36 01/30/21 09:18 01/30/21 09:18 01/30/21 09:18 Oxygen Flow Rate (L/min) 3 Oxygen Delivery Method Nasal Cannula Weight: 185 lb 13.595 oz Body Mass Index (BMI) 32.2 Intake and Output for Last 24 Hours 01/28/21 01/29/21 01/30/21 23:59 23:59 23:59 Intake Total 460 / 460 1420 / 1420 470 / 470 Output Total 950 / 950 725 / 725 800 / 800 Balance -490 / -490 695 / 695 -330 / -330 Current Medications Acetaminophen (Acetaminophen 325 Mg Tablet) 650 mg PO Q6H PRN PRN PRN Reason: Pain Score 1-10/Temp > 100.7 F Cholecalciferol (Cholecalciferol (Vit D3) 25 Mcg Tablet (1,000 Units)) 50 mcg PO DAILY [facility] Last Admin: 01/30/21 09:25 Dose: 50 mcg Documented by: Clonidine (Clonidine Hcl 0.2 Mg Tablet) 0.2 mg PO TID [facility] Last Admin: 01/30/21 05:40 Dose: 0.2 mg Documented by: Enoxaparin Sodium (Enoxaparin 40 Mg/0.4 Ml Syringe) 40 mg SC DAILY [facility] Last Admin: 01/30/21 09:28 Dose: 40 mg Documented by: Famotidine (Famotidine 20 Mg Tablet) 20 mg PO BID [facility] Last Admin: 01/30/21 09:26 Dose: 20 mg Documented by: Furosemide (Furosemide 40 Mg Tablet) 40 mg PO BID@1000,1800 [facility] Last Admin: 01/30/21 09:27 Dose: 40 mg Documented by: Guaifenesin (Guaifenesin 10 Ml Udc (200mg/10ml)) 20 ml PO Q4H PRN PRN PRN Reason: COUGH Guaifenesin (Guaifenesin 600 Mg Tablet) 600 mg PO BID [facility] Last Admin: 01/30/21 09:27 Dose: 600 mg Documented by: Hydralazine HCl (Hydralazine 20 Mg/Ml Vial) 10 mg IV Q4H PRN PRN PRN Reason: SBP > 160 Last Admin: 01/29/21 02:15 Dose: 10 mg Documented by: Levofloxacin (Levaquin Iv) 750 mg in 150 mls @ 100 mls/hr IV Q48@2200 [facility] Last Infusion: 01/29/21 21:48 Dose: Infused Documented by: Sodium Chloride () 250 mls @ 15 mls/hr IV .[id number] PRN PRN Reason: Additional IVPB Infusion Last Infusion: 01/25/21 12:50 Dose: 0 mls/hr Documented by: Lorazepam (Lorazepam 0.5 Mg Tablet) 0.5 mg PO Q6 [facility] Last Admin: 01/30/21 11:26 Dose: 0.5 mg Documented by: Lorazepam (Lorazepam 0.5 Mg Tablet) 0.5 mg PO Q4H PRN PRN PRN Reason: ANXIETY/RESTLESSNESS/SLEEP Melatonin (Melatonin 3 Mg Tablet) 3 mg PO QHS PRN PRN PRN Reason: INSOMNIA Methylprednisolone (Methylprednisolone 40 Mg/Ml Vial) 40 mg IV Q8 [facility] Last Admin: 01/30/21 05:40 Dose: 40 mg Documented by: Morphine Sulfate (Morphine (Oral Solution) 10mg/0.5ml Syringe) 2.5 mg SL/PO Q2H PRN PRN PRN Reason: .SHORTNESS OF BREATH Last Admin: 01/30/21 09:31 Dose: 2.5 mg Documented by: Multivitamins/Minerals (Multivitamins,Ther W-Minerals Tablet) 1 tablet PO DAILYCM [facility] Last Admin: 01/30/21 09:27 Dose: 1 tablet Documented by: Nitroglycerin (Nitroglycerin (Inpatient Use) 0.4 Mg Tab.Subl) 0.4 mg SL Q5M PRN PRN Reason: CARDIAC/CHEST PAIN Non-Formulary Medication (Levalbuterol Tartrate) 1 - 2 puff INHALATION 4X/DAY PRN PRN PRN Reason: ALLERGIES Last Admin: 01/27/21 21:01 Dose: 2 puff Documented by: Non-Formulary Medication (Budesonide/Formoterol 160-4.5 [Symbicort 160-4.5 Mcg Inhaler]) 2 puff INHALATION BID [facility] Last Admin: 01/30/21 09:31 Dose: 2 puff Documented by: Ondansetron HCl (Ondansetron 4 Mg/2 Ml Vial) 4 mg IV Q8H PRN PRN PRN Reason: NAUSEA/VOMITING Oxycodone HCl (Oxycodone 5 Mg Tablet) 10 mg PO Q4H PRN PRN PRN Reason: Pain Score 4-5 Last Admin: 01/28/21 13:34 Dose: 10 mg Documented by: Paroxetine HCl (Paroxetine 20 Mg Tablet) 20 mg PO DAILY [facility] Last Admin: 01/30/21 09:26 Dose: 20 mg Documented by: Potassium Chloride (Potassium Chloride Oral Tablet 20 Meq) 20 meq PO DAILYCM [facility] Last Admin: 01/30/21 09:27 Dose: 20 meq Documented by: Sodium Chloride (0.9% Saline Lock 10 Ml Syringe) 10 - 40 ml IV UD PRN PRN Reason: SALINE FLUSH Last Admin: 01/30/21 05:40 Dose: 10 ml Documented by: Spironolactone (Spironolactone 25 Mg Tablet) 25 mg PO DAILY [facility] Last Admin: 01/30/21 09:26 Dose: 25 mg Documented by: Tiotropium [place] (Tiotropium [place] 18 Mcg Cap.W.Dev) 18 mcg INHALATION DA TORREY [facility] Last Admin: 01/30/21 09:28 Dose: 18 mcg Documented by: Verapamil HCl (Verapamil Sr 240 Mg Tablet) 120 mg PO Q12 [facility] Last Admin: 01/30/21 09:25 Dose: 120 mg Documented by: Assessment/Plan Patient seen by Julieta ARREOLA under my supervision Patient seen and examined. Patient tells me today she had a bad night and still feels short of breath. She and her met with hospice yesterday and states that they are going to sign hospice papers tomorrow because her wants to use this time to talk to the assistance and also to get their house in order before she goes home with hospice. Review of systems is otherwise negative. O/E: Vital Signs Temp Pulse Resp BP Pulse Ox 97.9 F 103 H 19 H 157/66 H 98 01/30/21 09:18 01/30/21 12:36 01/30/21 09:18 01/30/21 09:18 01/30/21 09:18 General: Alert, Oriented x3, Cooperative, No apparent distress, looks frail HEENT: Atraumatic, PERRLA, EOMI, Normocephalic Oral: Dry Mucosa Neck: Supple, No JVD, Negative Carotid Bruits Lungs: mildly diminished breath sounds bibasally, no wheezes or crackles. on 4L of oxygen by nasal canula Cardiovascular: Regular rate, Regular Rhythm, Normal S1, Normal S2, No murmurs Abdomen: Bowel Sounds Present, Soft, Non Tender, Non-Distended, No Hepato- splenomegaly Extremities: No clubbing, No cyanosis, No edema, Capillary Refill Less than 3 Seconds Skin: No rashes, No breakdown Musculoskeletal: No Tenderness to Palpation of Joints or Extremities Lymphatic: No Cervical, Supraclavicular, or Inguinal Adenopathy Neurological: Cranial nerves II-XII grossly intact, Neuro grossly intact, Motor Exam 5/5 strength throughout Psych/Mental Status: Normal Affect, Appropriate, Alert and oriented to time, place, person, mood and affect Plan is to continue with oxygen as needed for shortness of breath. Continue IV Solu-Medrol and IV levofloxacin. Continue oral Lasix as well. Plan is to go home with home hospice after declined hospice papers tomorrow. Patient has accepted the fact that she has end-stage COPD and is now going to recover from this. Rest as per Julieta Gutierrez NP-C's notes which I have reviewed and endorsed. Inpatient E&M: [id number] Subs Hosp L2
[2021-01-31 02:47] VITALS: BP 160/90; PULSE 83; RESP 18; TEMP 36.6; O2SAT 96
[2021-01-31 03:01] VITALS: PULSE 81
[2021-01-31] MEDS: LORazepam 0.5 MG Tablet PO ×2 (05:35→11:13)
[2021-01-31] MEDS: morphine (oral solution) 10MG/0.5ML Syringe 2.5 MG SL/PO ×4 (05:35→13:24)
[2021-01-31] MEDS: 0.9% Saline Lock 10 ML Syringe IV ×2 (05:36→10:44)
[2021-01-31] MEDS: cloNIDine HCl 0.2 MG Tablet PO (05:37)
[2021-01-31 07:10] VITALS: PULSE 73
[2021-01-31 08:29] VITALS: BP 165/79; PULSE 103; RESP 22; TEMP 36.6; O2SAT 94
[2021-01-31] MEDS: Potassium Chloride Oral Tablet 20 MEQ PO (08:35)
[2021-01-31] MEDS: Paroxetine 20 MG Tablet PO (08:36)
[2021-01-31] MEDS: Multivitamins,Ther W-Minerals Tablet 1 TABLET PO (08:36)
[2021-01-31] MEDS: guaiFENesin 600 MG Tablet PO (08:36)
[2021-01-31] MEDS: Cholecalciferol (VIT D3) 25 MCG TABLET (1,000 UNITS) 50 MCG PO (08:36)
[2021-01-31] MEDS: Famotidine 20 MG Tablet PO (08:37)
[2021-01-31] MEDS: Furosemide 40 MG Tablet PO (08:37)
[2021-01-31] MEDS: Spironolactone 25 MG Tablet PO (08:37)
[2021-01-31] MEDS: TIOTROPIUM BROMIDE 18 MCG CAP.W.DEV INHALATION (08:38)
[2021-01-31] MEDS: Enoxaparin 40 MG/0.4 ML Syringe SC (08:38)
[2021-01-31] MEDS: Verapamil SR 240 MG Tablet 120 MG PO (08:38)
--- NOTE | 2021-01-31 10:24 | PCM.DC ---
- Discharge Diagnoses Current Active Problems: Current Active and Chronic Problems COPD exacerbation (Acute) Atypical chest pain (Acute) Acute hypercapnic respiratory failure (Acute) Shortness of breath (Acute) acute on chronic Venous insufficiency (Chronic) Delayed wound healing (Chronic) History of smoking (Chronic) Chronic respiratory failure (Chronic) Obesity (Chronic) COPD (chronic obstructive pulmonary disease) (Chronic) Steroid dependent (Chronic) Leg swelling (Chronic) Hyperlipidemia (Chronic) Hypertension (Chronic) CHF (congestive heart failure) (Chronic) Hx TIA/stroke w/o resid (Chronic) Peripheral vascular disease (Chronic) Benign hypertension (Chronic) You will use the following diet at home:: No restrictions Discharge Activity: Return to Normal Activity Allergies/Adverse Reactions: Allergies albuterol Allergy (Verified 09/10/20 13:38) Shortness of breath belladonna alkaloids [Belladonna Alkaloids] Allergy (Verified 01/25/21 00:24) Rash lisinopril Allergy (Verified 01/25/21 00:24) Angioedema phenobarbital Allergy (Verified 01/25/21 00:24) Rash doxazosin mesylate [From Cardura] Adverse Reaction (Verified 01/25/21 00:24) PT UNSURE OF REACTION Medications to take at Discharge Multivit-Min/FA/Lycopene/Lut [Centrum Silver Tablet] 1 each PO DAILY 07/22/13 Verapamil HCl [Calan Sr] 120 mg PO Q12 07/22/13 Potassium Chloride Oral Tablet [K-Dur] 20 meq PO DAILY 07/24/13 Clonidine HCl [Catapres] 0.2 mg PO TID 02/25/14 Levalbuterol Tartrate [Xopenex Hfa Inhaler] 1 - 2 puff INHALATION 4X/DAY PRN PRN 02/25/14 Tiotropium [place] [Spiriva 18 MCG] 1 puff INHALATION DAILY 02/25/14 Cholecalciferol (Vitamin D3) [Vitamin D3] 2,000 unit PO DAILY 09/24/19 Guaifenesin [Mucinex] 600 mg PO BID 09/24/19 Spironolactone 25 mg PO DAILY 11/20/19 Famotidine [Pepcid] 20 mg PO BID #30 tab 07/28/20 Paroxetine [Paxil] 20 mg PO DAILY 09/10/20 Lorazepam [Ativan] 0.5 mg PO TID PRN PRN 01/25/21 Budesonide/Formoterol 160/4.5 [Symbicort 160/4.5 Mcg Inhaler (SP)] 2 puff INHALATION BID 01/26/21 Furosemide [Lasix] 40 mg PO BID@1000,1800 #60 tablet 01/31/21 Prednisone See Taper PO DAILY #30 tablet 01/31/21 The following prescriptions were given: Furosemide [Lasix] 40 mg PO BID@1000,1800 #60 tablet Transmission Status: Pending to [id number] Prednisone See Taper PO DAILY #30 tablet Transmission Status: Pending to [id number] Primary Care Physician: Mandi Canales MD [Primary Care Provider] - Please follow up with your Primary Care Physician in: 1 Week Test Results: Test results from this visit will be discussed in further detail at your follow-up appointment, if applicable. Please Follow Up With: Hospice When: Home with Hospice Proposed Discharge Date: 01/31/21
--- NOTE | 2021-01-31 10:28 | PCM.DC.SUM ---
<MattJulieta THERAPIST ASST - Last Filed: 01/31/21 10:46> Discharge Date and Diagnosis - Problem List Patient Problems: Active and Suspected Problems COPD exacerbation (Acute) Atypical chest pain (Acute) Acute hypercapnic respiratory failure (Acute) Shortness of breath (Acute) acute on chronic Date of Admission: 01/26/21 Date of Discharge: 01/31/21 - Primary Discharge Diagnosis Acute Problems: Active Problems 1. Acute on chronic hypoxic respiratory failure secondary to exacerbation of COPD and acute on chronic heart failure with preserved ejection fraction 2. COPD with exacerbation 3. Acute on chronic heart failure with preserved ejection fraction 4. Hypertension 5. Hyperlipidemia 6. History of tobacco use 7. Hospice transition - Secondary Discharge Diagnosis Chronic Problems: Chronic Problems Venous insufficiency (Chronic) Delayed wound healing (Chronic) History of smoking (Chronic) Chronic respiratory failure (Chronic) Obesity (Chronic) COPD (chronic obstructive pulmonary disease) (Chronic) Steroid dependent (Chronic) Leg swelling (Chronic) Hyperlipidemia (Chronic) Hypertension (Chronic) CHF (congestive heart failure) (Chronic) Hx TIA/stroke w/o resid (Chronic) Edema leg (Chronic) Leg edema, left (Chronic) Peripheral vascular disease (Chronic) Benign hypertension (Chronic) Hospital Course and Treatment Imaging Results: Diagnostic Data Chest X-Ray 01/25/21 00:59 IMPRESSION: Mild left-sided pleural effusion. Bilateral basilar atelectasis with crowding of vessels. Questionable postoperative changes through the bilateral mid upper lung barone. Electronically Signed: Lidia Rolle MD at 1:19 EDT , Service support , Echocardiogram 01/25/21 07:44 Interpretation Summary The study was technically difficult. Contrast injection was performed. Based upon the 2D echocardiographic and contrast enhanced images obtained there appears to be grossly normal left ventricular size, wall motion, and systolic function. The estimated ejection fraction is 75 %. The left atrium is mildly enlarged. Trivial mitral valve insufficiency. Mild focal aortic valve calcification. Epicardial fat. Unable to assess diastolic dysfunction. Ordering Physician: Carolyne Gregg Referring Physician: Mandi Canales M.D. Performed By: Jose Alfredo Medina RCS Dr. Robles- Pulmonary medicine Palliative/Hospice Operations: None Procedures: 2-D Echocardiogram Summary of Care Provided: The patient is a 75 year old F admitted 01/25/2021 due to shortness of breath. 1. Acute on chronic hypoxic respiratory failure secondary to exacerbation of COPD and acute on chronic heart failure with preserved ejection fraction-continue supplement oxygen to maintain O2 above 90%. Patient wears 3 L nasal cannula at baseline with CPAP at night. Home with hospice transition at discharge. 2. COPD with exacerbation-respiratory panel, Covid negative. IV Solu-Medrol during admission. Allergy to albuterol. Completed 7-day course of Levaquin empirically. Prednisone taper at discharge. 3. Acute on chronic heart failure with preserved ejection fraction-BNP 296. Chest x-ray with left-sided pleural effusion. Echocardiogram demonstrates an EF of 75%. Prednisone reduced to 40 mg twice daily. 4. Hypertension- stable, continue clonidine, spironolactone, verapamil. 5. Hyperlipidemia- not on statin. 6. History of tobacco use-encouraged continued cessation. 7. Hospice transition-home with hospice at discharge. General: Alert, Oriented x3, Cooperative HEENT: Atraumatic, PERRLA, EOMI, Normocephalic Neck: Supple, No JVD, Negative Carotid Bruits Lungs: Clear to auscultation, Diminished Cardiovascular: Regular rate, No murmurs Abdomen: Bowel Sounds Present, Soft, Non Tender, Non-Distended Extremities: No clubbing, No cyanosis, No edema, Capillary Refill Less than 3 Seconds Skin: No rashes, No breakdown Musculoskeletal: No Tenderness to Palpation of Joints or Extremities Neurological: Cranial nerves II-XII grossly intact, Neuro grossly intact Psych/Mental Status: Normal Affect Patient seen and examined prior to discharge. Physical assessment as noted above. This patient was seen by MAXWELL Richards under the supervision of Dr. Enriquez. Patient Problems: Active and Suspected Problems COPD exacerbation (Acute) Atypical chest pain (Acute) Acute hypercapnic respiratory failure (Acute) Shortness of breath (Acute) acute on chronic - Physical Exam Vitals/I&O's: Vital Signs Temp Pulse Resp BP Pulse Ox 97.9 F 103 H 22 H 165/79 H 94 01/31/21 08:29 01/31/21 08:29 01/31/21 08:29 01/31/21 08:29 01/31/21 08:29 Oxygen Flow Rate (L/min) 3 Oxygen Delivery Method Nasal Cannula Weight: 184 lb 15.485 oz Body Mass Index (BMI) 32.2 Intake and Output for Last 24 Hours 01/29/21 01/30/21 01/31/21 23:59 23:59 23:59 Intake Total 1420 / 1420 820 / 820 Output Total 725 / 725 1700 / 1700 175 / 175 Balance 695 / 695 -880 / -880 -175 / -175 Current Medications Acetaminophen (Acetaminophen 325 Mg Tablet) 650 mg PO Q6H PRN PRN PRN Reason: Pain Score 1-10/Temp > 100.7 F Cholecalciferol (Cholecalciferol (Vit D3) 25 Mcg Tablet (1,000 Units)) 50 mcg PO DAILY [facility] Last Admin: 01/31/21 08:36 Dose: 50 mcg Documented by: Clonidine (Clonidine Hcl 0.2 Mg Tablet) 0.2 mg PO TID [facility] Last Admin: 01/31/21 05:37 Dose: 0.2 mg Documented by: Enoxaparin Sodium (Enoxaparin 40 Mg/0.4 Ml Syringe) 40 mg SC DAILY [facility] Last Admin: 01/31/21 08:38 Dose: 40 mg Documented by: Famotidine (Famotidine 20 Mg Tablet) 20 mg PO BID [facility] Last Admin: 01/31/21 08:37 Dose: 20 mg Documented by: Furosemide (Furosemide 40 Mg Tablet) 40 mg PO BID@1000,1800 [facility] Last Admin: 01/31/21 08:37 Dose: 40 mg Documented by: Guaifenesin (Guaifenesin 10 Ml Udc (200mg/10ml)) 20 ml PO Q4H PRN PRN PRN Reason: COUGH Guaifenesin (Guaifenesin 600 Mg Tablet) 600 mg PO BID [facility] Last Admin: 01/31/21 08:36 Dose: 600 mg Documented by: Hydralazine HCl (Hydralazine 20 Mg/Ml Vial) 10 mg IV Q4H PRN PRN PRN Reason: SBP > 160 Last Admin: 01/29/21 02:15 Dose: 10 mg Documented by: Sodium Chloride () 250 mls @ 15 mls/hr IV .[id number] PRN PRN Reason: Additional IVPB Infusion Last Infusion: 01/25/21 12:50 Dose: 0 mls/hr Documented by: Levofloxacin (Levaquin Iv) 750 mg in 150 mls @ 100 mls/hr IV DAILY [facility] Lorazepam (Lorazepam 0.5 Mg Tablet) 0.5 mg PO Q6 [facility] Last Admin: 01/31/21 05:35 Dose: 0.5 mg Documented by: Lorazepam (Lorazepam 0.5 Mg Tablet) 0.5 mg PO Q4H PRN PRN PRN Reason: ANXIETY/RESTLESSNESS/SLEEP Melatonin (Melatonin 3 Mg Tablet) 3 mg PO QHS PRN PRN PRN Reason: INSOMNIA Methylprednisolone (Methylprednisolone 40 Mg/Ml Vial) 40 mg IV Q8 [facility] Last Admin: 01/31/21 05:36 Dose: 40 mg Documented by: Morphine Sulfate (Morphine (Oral Solution) 10mg/0.5ml Syringe) 2.5 mg SL/PO Q2H PRN PRN PRN Reason: .SHORTNESS OF BREATH Last Admin: 01/31/21 08:39 Dose: 2.5 mg Documented by: Multivitamins/Minerals (Multivitamins,Ther W-Minerals Tablet) [facility] Last Admin: 01/31/21 08:36 Dose: 1 tablet Documented by: Nitroglycerin (Nitroglycerin (Inpatient Use) 0.4 Mg Tab.Subl) 0.4 mg SL Q5M PRN PRN Reason: CARDIAC/CHEST PAIN Non-Formulary Medication (Levalbuterol Tartrate) 1 - 2 puff INHALATION 4X/DAY PRN PRN PRN Reason: ALLERGIES Last Admin: 01/27/21 21:01 Dose: 2 puff Documented by: Non-Formulary Medication (Budesonide/Formoterol 160-4.5 [Symbicort 160-4.5 Mcg Inhaler]) 2 puff INHALATION BID [facility] Last Admin: 01/31/21 08:39 Dose: 2 puff Documented by: Ondansetron HCl (Ondansetron 4 Mg/2 Ml Vial) 4 mg IV Q8H PRN PRN PRN Reason: NAUSEA/VOMITING Oxycodone HCl (Oxycodone 5 Mg Tablet) 10 mg PO Q4H PRN PRN PRN Reason: Pain Score 4-5 Last Admin: 01/28/21 13:34 Dose: 10 mg Documented by: Paroxetine HCl (Paroxetine 20 Mg Tablet) 20 mg PO DAILY [facility] Last Admin: 01/31/21 08:36 Dose: 20 mg Documented by: Potassium Chloride (Potassium Chloride Oral Tablet 20 Meq) 20 meq PO DAILYCM [facility] Last Admin: 01/31/21 08:35 Dose: 20 meq Documented by: Sodium Chloride (0.9% Saline Lock 10 Ml Syringe) 10 - 40 ml IV UD PRN PRN Reason: SALINE FLUSH Last Admin: 01/31/21 05:36 Dose: 10 ml Documented by: Spironolactone (Spironolactone 25 Mg Tablet) 25 mg PO DAILY [facility] Last Admin: 01/31/21 08:37 Dose: 25 mg Documented by: Tiotropium [place] (Tiotropium [place] 18 Mcg Cap.W.Dev) 18 mcg INHALATION DAILY [facility] Last Admin: 01/31/21 08:38 Dose: 18 mcg Documented by: Verapamil HCl (Verapamil Sr 240 Mg Tablet) 120 mg PO Q12 [facility] Last Admin: 01/31/21 08:38 Dose: 120 mg Documented by: Discharge Diet: No Restrictions Discharge Activity: Return to Normal Activity Home Medications: Medications to take at Discharge Multivit-Min/FA/Lycopene/Lut [Centrum Silver Tablet] 1 each PO DAILY 07/22/13 Verapamil HCl [Calan Sr] 120 mg PO Q12 07/22/13 Potassium Chloride Oral Tablet [K-Dur] 20 meq PO DAILY 07/24/13 Clonidine HCl [Catapres] 0.2 mg PO TID 02/25/14 Levalbuterol Tartrate [Xopenex Hfa Inhaler] 1 - 2 puff INHALATION 4X/DAY PRN PRN 02/25/14 Tiotropium [place] [Spiriva 18 MCG] 1 puff INHALATION DAILY 02/25/14 Cholecalciferol (Vitamin D3) [Vitamin D3] 2,000 unit PO DAILY 09/24/19 Guaifenesin [Mucinex] 600 mg PO BID 09/24/19 Spironolactone 25 mg PO DAILY 11/20/19 Famotidine [Pepcid] 20 mg PO BID #30 tab 07/28/20 Paroxetine [Paxil] 20 mg PO DAILY 09/10/20 Lorazepam [Ativan] 0.5 mg PO TID PRN PRN 01/25/21 Budesonide/Formoterol 160/4.5 [Symbicort 160/4.5 Mcg Inhaler (SP)] 2 puff INHALATION BID 01/26/21 Furosemide [Lasix] 40 mg PO BID@1000,1800 #60 tablet 01/31/21 Prednisone See Taper PO DAILY #30 tablet 01/31/21 Following Prescriptions Were Given to Patient: Furosemide [Lasix] 40 mg PO BID@1000,1800 #60 tablet Transmission Status: Received by [id number] Prednisone See Taper PO DAILY #30 tablet Transmission Status: Received by [facility] Primary Care Physician: Mandi Canales MD [Primary Care Provider] - Please follow up with your Primary Care Physician in: 1 Week Please Follow Up With: Hospice When: Home with Hospice Disposition: Home with Hospice Minutes spent on discharge:: 35 Patient Condition:: Fair Medical Necessity - Tobacco Use Smoking Status: Former smoker Tobacco Use: Cigarettes Meaningful Use Info Meaningful Use Diagnoses (Choose all that apply): CHF - CHF EDITA/ARB ordered at discharge?: No Reason EDITA/ARB not ordered?: Hypotension Documented LVEF (%): 75 <Didier Enriquez - Last Filed: 01/31/21 12:20> Discharge Date and Diagnosis - Primary Discharge Diagnosis Acute Problems: Active Problems COPD exacerbation (Acute) Atypical chest pain (Acute) Acute hypercapnic respiratory failure (Acute) Shortness of breath (Acute) acute on chronic - Secondary Discharge Diagnosis Chronic Problems: Chronic Problems Venous insufficiency (Chronic) Delayed wound healing (Chronic) History of smoking (Chronic) Chronic respiratory failure (Chronic) Obesity (Chronic) COPD (chronic obstructive pulmonary disease) (Chronic) Steroid dependent (Chronic) Leg swelling (Chronic) Hyperlipidemia (Chronic) Hypertension (Chronic) CHF (congestive heart failure) (Chronic) Hx TIA/stroke w/o resid (Chronic) Edema leg (Chronic) Leg edema, left (Chronic) Peripheral vascular disease (Chronic) Benign hypertension (Chronic) Hospital Course and Treatment Operations: None Procedures: 2-D Echocardiogram Summary of Care Provided: Patient seen and examined independently. Data reviewed. I agree with the above note by the nurse practitioner. The patient is a 75 year old F presents with shortness of breath. Patient exacerbation of her COPD. Patient was evaluated by wound care and plan is for the patient to go home with hospice upon discharge. Medications will be further optimized to maintain symptom control while hospice continues to evaluate at home. Patient be on prednisone taper upon discharge as well. [] - Physical Exam Vitals/I&O's: Vital Signs Temp Pulse Resp BP Pulse Ox 36.6 C 103 H 22 H 165/79 H 94 01/31/21 08:29 01/31/21 08:29 01/31/21 08:29 01/31/21 08:29 01/31/21 08:29 Oxygen Flow Rate (L/min) 3 Oxygen Delivery Method Nasal Cannula Weight: 83.9 kg Body Mass Index (BMI) 32.2 Intake and Output for Last 24 Hours 01/29/21 01/30/21 01/31/21 23:59 23:59 23:59 Intake Total 1420 / 1420 820 / 820 Output Total 725 / 725 1700 / 1700 175 / 175 Balance 695 / 695 -880 / -880 -175 / -175 General: Alert HEENT: Atraumatic, Normocephalic Lungs: Clear to auscultation, Diminished Cardiovascular: Regular rate, Regular Rhythm, Normal S1, Normal S2 Abdomen: Bowel Sounds Present, Soft, Non Tender, Non-Distended Extremities: No edema, No Calf Tenderness Psych/Mental Status: Normal Affect, Appropriate Current Medications Acetaminophen (Acetaminophen 325 Mg Tablet) 650 mg PO Q6H PRN PRN PRN Reason: Pain Score 1-10/Temp > 100.7 F Cholecalciferol (Cholecalciferol (Vit D3) 25 Mcg Tablet (1,000 Units)) 50 mcg PO DAILY [facility] Last Admin: 01/31/21 08:36 Dose: 50 mcg Documented by: Clonidine (Clonidine Hcl 0.2 Mg Tablet) 0.2 mg PO TID [facility] Last Admin: 01/31/21 05:37 Dose: 0.2 mg Documented by: Enoxaparin Sodium (Enoxaparin 40 Mg/0.4 Ml Syringe) 40 mg SC DAILY [facility] Last Admin: 01/31/21 08:38 Dose: 40 mg Documented by: Famotidine (Famotidine 20 Mg Tablet) 20 mg PO BID [facility] Last Admin: 01/31/21 08:37 Dose: 20 mg Documented by: Furosemide (Furosemide 40 Mg Tablet) 40 mg PO BID@1000,1800 [facility] Last Admin: 01/31/21 08:37 Dose: 40 mg Documented by: Guaifenesin (Guaifenesin 10 Ml Udc (200mg/10ml)) 20 ml PO Q4H PRN PRN PRN Reason: COUGH Guaifenesin (Guaifenesin 600 Mg Tablet) 600 mg PO BID [facility] Last Admin: 01/31/21 08:36 Dose: 600 mg Documented by: Hydralazine HCl (Hydralazine 20 Mg/Ml Vial) 10 mg IV Q4H PRN PRN PRN Reason: SBP > 160 Last Admin: 01/29/21 02:15 Dose: 10 mg Documented by: Sodium Chloride () 250 mls @ 15 mls/hr IV .[id number] PRN PRN Reason: Additional IVPB Infusion Last Infusion: 01/25/21 12:50 Dose: 0 mls/hr Documented by: Levofloxacin (Levaquin Iv) 750 mg in 150 mls @ 100 mls/hr IV DAILY [facility] Last Admin: 01/31/21 10:44 Dose: 100 mls/hr Documented by: Lorazepam (Lorazepam 0.5 Mg Tablet) 0.5 mg PO Q6 [facility] Last Admin: 01/31/21 11:13 Dose: 0.5 mg Documented by: Lorazepam (Lorazepam 0.5 Mg Tablet) 0.5 mg PO Q4H PRN PRN PRN Reason: ANXIETY/RESTLESSNESS/SLEEP Melatonin (Melatonin 3 Mg Tablet) 3 mg PO QHS PRN PRN PRN Reason: INSOMNIA Methylprednisolone (Methylprednisolone 40 Mg/Ml Vial) 40 mg IV Q8 [facility] Last Admin: 01/31/21 05:36 Dose: 40 mg Documented by: Morphine Sulfate (Morphine (Oral Solution) 10mg/0.5ml Syringe) 2.5 mg SL/PO Q2H PRN PRN PRN Reason: .SHORTNESS OF BREATH Last Admin: 01/31/21 11:13 Dose: 2.5 mg Documented by: Multivitamins/Minerals (Multivitamins,Ther W-Minerals Tablet) [facility] Last Admin: 01/31/21 08:36 Dose: 1 tablet Documented by: Nitroglycerin (Nitroglycerin (Inpatient Use) 0.4 Mg Tab.Subl) 0.4 mg SL Q5M PRN PRN Reason: CARDIAC/CHEST PAIN Non-Formulary Medication (Levalbuterol Tartrate) 1 - 2 puff INHALATION 4X/DAY PRN PRN PRN Reason: ALLERGIES Last Admin: 01/27/21 21:01 Dose: 2 puff Documented by: Non-Formulary Medication (Budesonide/Formoterol 160-4.5 [Symbicort 160-4.5 Mcg Inhaler]) 2 puff INHALATION BID [facility] Last Admin: 01/31/21 08:39 Dose: 2 puff Documented by: Ondansetron HCl (Ondansetron 4 Mg/2 Ml Vial) 4 mg IV Q8H PRN PRN PRN Reason: NAUSEA/VOMITING Oxycodone HCl (Oxycodone 5 Mg Tablet) 10 mg PO Q4H PRN PRN PRN Reason: Pain Score 4-5 Last Admin: 01/28/21 13:34 Dose: 10 mg Documented by: Paroxetine HCl (Paroxetine 20 Mg Tablet) 20 mg PO DAILY [facility] Last Admin: 01/31/21 08:36 Dose: 20 mg Documented by: Potassium Chloride (Potassium Chloride Oral Tablet 20 Meq) [facility] Last Admin: 01/31/21 08:35 Dose: 20 meq Documented by: Sodium Chloride (0.9% Saline Lock 10 Ml Syringe) 10 - 40 ml IV UD PRN PRN Reason: SALINE FLUSH Last Admin: 01/31/21 10:44 Dose: 20 ml Documented by: Spironolactone (Spironolactone 25 Mg Tablet) 25 mg PO DAILY [facility] Last Admin: 01/31/21 08:37 Dose: 25 mg Documented by: Tiotropium [place] (Tiotropium [place] 18 Mcg Cap.W.Dev) 18 mcg INHALATION DAILY [facility] Last Admin: 01/31/21 08:38 Dose: 18 mcg Documented by: Verapamil HCl (Verapamil Sr 240 Mg Tablet) 120 mg PO Q12 [facility] Last Admin: 01/31/21 08:38 Dose: 120 mg Documented by: Discharge Diet: No Restrictions Discharge Activity: Return to Normal Activity Please follow up with your Primary Care Physician in: 1 week Please Follow Up With: [facility]ospice [facility] Disposition: Home with Hospice Minutes spent on discharge:: 35 Patient Condition:: Stable Medical Necessity - Tobacco Use Smoking Status: Former smoker Tobacco Use: Cigarettes Meaningful Use Info Meaningful Use Diagnoses (Choose all that apply): CHF - CHF EDITA/ARB ordered at discharge?: No Reason EDITA/ARB not ordered?: Hypotension Documented LVEF (%): 75 Inpatient E&M: 07561 Disch Hosp
--- NOTE | 2021-01-31 10:38 | PHA.DC.MR ---
Pharmacy Service has performed discharge medication reconciliation for this patient. The patient's discharge medication list was reviewed for discrepancies and discrepancies were resolved. Home Medications Multivit-Min/FA/Lycopene/Lut [Centrum Silver Tablet] 1 each PO DAILY 07/22/13 Verapamil HCl [Calan Sr] 120 mg PO Q12 07/22/13 Potassium Chloride Oral Tablet [K-Dur] 20 meq PO DAILY 07/24/13 Clonidine HCl [Catapres] 0.2 mg PO TID 02/25/14 Levalbuterol Tartrate [Xopenex Hfa Inhaler] 1 - 2 puff INHALATION 4X/DAY PRN PRN 02/25/14 Tiotropium [place] [Spiriva 18 MCG] 1 puff INHALATION DAILY 02/25/14 Cholecalciferol (Vitamin D3) [Vitamin D3] 2,000 unit PO DAILY 09/24/19 Guaifenesin [Mucinex] 600 mg PO BID 09/24/19 Spironolactone 25 mg PO DAILY 11/20/19 Famotidine [Pepcid] 20 mg PO BID #30 tab 07/28/20 Paroxetine [Paxil] 20 mg PO DAILY 09/10/20 Lorazepam [Ativan] 0.5 mg PO TID PRN PRN 01/25/21 Budesonide/Formoterol 160/4.5 [Symbicort 160/4.5 Mcg Inhaler (SP)] 2 puff INHALATION BID 01/26/21 Furosemide [Lasix] 40 mg PO BID@1000,1800 #60 tablet 01/31/21 Prednisone See Taper PO DAILY #30 tablet 01/31/21
[2021-01-31] MEDS: levoFLOXacin IV 750 MG/150 ML BAG 100 MG IV (10:44)
--- NOTE | 2021-01-31 11:29 | CASEMGMT ---
Addendum entered by Tarah Jensen 01/31/21 12:32: SW notified [facility] that pt should be leaving within the half hour. They will see pt at home this afternoon. DARLIN Jesus Original Note: It is this SW's understanding that pt will be going home on hospice today. SW called [facility], spoke w/Eunice, she then came in and pt signed the papers. SW gave discharge summary and instructions to hospice. Pt home today w/hospice. DARLIN Jesus
== END 2021-01-31 13:35 | disposition hospice, home (50) | DRG 190 ==
LOC: ED 02:14 → PCU 03:17
PROVIDERS: Nurse Practitioner Family; Student in an Organized Health Care Education/Training Program; Admitting Provider Family Medicine; Emergency Provider Emergency Medicine; PCP Internal Medicine
DX: J44.1 Chronic obstructive pulmonary disease with (acute) exacerbation (principal); I50.33 Acute on chronic diastolic (congestive) heart failure; J96.21 Acute and chronic respiratory failure with hypoxia; J96.22 Acute and chronic respiratory failure with hypercapnia; I11.0 Hypertensive heart disease with heart failure; E78.5 Hyperlipidemia, unspecified; I87.2 Venous insufficiency (chronic) (peripheral); I73.9 Peripheral vascular disease, unspecified; F32.9 Major depressive disorder, single episode, unspecified; F41.9 Anxiety disorder, unspecified; K21.9 Gastro-esophageal reflux disease without esophagitis; R07.89 Other chest pain; E66.09 Other obesity due to excess calories; Z68.32 Body mass index [BMI] 32.0-32.9, adult; Z66 Do not resuscitate; Z79.51 Long term (current) use of inhaled steroids; Z79.52 Long term (current) use of systemic steroids; Z99.81 Dependence on supplemental oxygen; Z79.899 Other long term (current) drug therapy; Z87.891 Personal history of nicotine dependence; Z86.73 Personal history of transient ischemic attack (TIA), and cerebral infarction without residual deficits; Z82.5 Family history of asthma and other chronic lower respiratory diseases
CPT/HCPCS: 36415; 36600; 71045; 80048; 80061; 82803; 83880; 84484; 85025; 87426; 87633; 87804; 93005; 93306; 94002; 94003; 94640; 97110; 97116; 97162; 97166; 97530; 97535; 97802; 97803; 99251; 99285; J7050; Q9957; A4216; C8929; G0463; J1940